=== PATIENT | female | born 1955 | race Caucasian/White ===

== ENCOUNTER 2023-11-17 19:17 | Inpatient (IN) | payer MEDICARE, OTHER, SELFPAY ==
[2023-11-17] VITALS (15 sets, daily range): BP systolic 124–162; BP diastolic 35–63
--- NOTE | 2023-11-17 12:21 | ED.GENMED ---
History of Present Illness
<López Pfeiffer DO - Last Filed: 11/17/23 15:15>
General
Chief Complaint: Gynecological Problem
Source: patient, records (Have been requested) and family
Exam Limitations: none
Time Seen by Provider: 11/17/23 12:07
Nursing documentation reviewed up to this point in time: agreed with
Travel History
Have you had any contact with someone who has COVID-19?: No
Do you have any symptoms of coronavirus? Fever > 100 degrees, chills, cough, shortness of breath, sore throat, loss of taste or smell, muscle aches, or headache?: No
History of Present Illness
History of Present Illness:
Patient is a very pleasant 68-year-old female accompanied by her family members she has had chronic back pain for about 5 years numerous physician visits no definitive diagnosis developed pelvic pain right greater than left for 5 days ago seen at a
hospital in [place] ultimately transferred to [facility] for urgent surgery apparently had a 9 cm mass with torsion of her right ovary
While awaiting surgery her blood pressure was elevated and surgery was apparently put on hold, last evening she was told she does not need surgery and she was discharged home to follow-up
Patient and family are frustrated by this and have come to [facility] expecting answers to her pelvic pain/mass issues
Has had subacute weight loss, she has had a partial hysterectomy 1998 for heavy bleeding does not know which surgeon performed that procedure
No records have accompanied the patient
Past History
<López Pfeiffer DO - Last Filed: 11/17/23 15:15>
Past History
ED Past Medical History: COPD and HTN
ED Past Surgical History: Gynecological (Hysterectomy) and Orthopedic
Social History
Tobacco: Former smoker
Alcohol: None
Drug: None
Living: with family
Employment: Retired
Review of Systems
<López Pfeiffer DO - Last Filed: 11/17/23 15:15>
Review of Systems
All Other Systems: Not applicable
Constitutional: Denies fever, fatigue or chills
EENT: Reports no symptoms
Respiratory: Reports no symptoms
Cardiac: Reports no symptoms
ABD/GI: Reports abdominal pain; Denies nausea or constipated
Musculoskeletal: Reports back pain
Skin: Reports no symptoms
Phy Exam
<López Pfeiffer DO - Last Filed: 11/17/23 15:15>
Physical Exam
Physical Exam:
Physical Exam
General: 68 female looks uncomfortable
Neck: No jaw
Heart: s1/s2 regular rate and rhythm, no murmur. equal radial pulses.
Lungs: no acute respiratory distress
Abdomen: Tender in the right greater than left lower
Neuro: alert and oriented. no focal neurological deficits
Skin: no rash
Psychiatric: well kept. interactive and cooperative
Extremities: no edema.
Course
<López Pfeiffer DO - Last Filed: 11/17/23 15:15>
Orders/Labs/Results
Orders:
Orders
11/17/23 12:20
0.9% Sodium Chloride 1000 ml [Nss] 1,000 ml IV BOLUS
HYDROmorphone [Dilaudid] 0.5 mg IV NOW STA
US Pelvis Transvaginal Only Urgent
Reason For Exam: mass tornsion tv only
11/17/23 12:23
CT Abd/Pel (IV only)-DH only Urgent
Comment:
Reason For Exam: right pelivc pain/mass
11/17/23 12:36
Complete Blood Count/With Diff Urgent
Comprehensive Metabolic Panel Urgent
11/17/23 12:53
HYDROmorphone [Dilaudid] 1 mg IV NOW STA
Ketorolac [Toradol] 30 mg IV NOW STA
11/17/23 14:56
0.9% Sodium Chloride 1000 ml [Nss] 1,000 ml IV BOLUS
11/17/23 15:09
CARBON SETTER CONSULT Urgent
Consulting Provider: Bronwyn Faust
Was physician already notified: Yes
11/17/23 16:29
* Blood Bank Products Urgent
Blood Bank Products: *Packed RBC Leuko(PRBC's)
Quantity: 2 u
Transfuse Today: Yes
Reason: Anemia
11/17/23 16:37
Dexamethasone Sod Phosphate [Decadron] 20 mg .ROUTE .STK-MED ONE
Fentanyl Citrate/Pf [Sublimaze] 100 mcg .ROUTE .STK-MED ONE
Lidocaine HCl/Pf [Xylocaine-Mpf 1% Vial] 50 mg .ROUTE .STK-MED ONE
Midazolam HCl [Versed] 2 mg .ROUTE .STK-MED ONE
Ondansetron Injectable [Zofran] 4 mg .ROUTE .STK-MED ONE
Propofol [Diprivan] 20 ml .ROUTE .STK-MED
Rocuronium Marianna [Rocuronium] 50 mg .ROUTE .STK-MED ONE
11/17/23 16:41
Lidocaine HCl/Pf [Xylocaine-Mpf 1% Vial] 50 mg .ROUTE .STK-MED ONE
11/17/23 16:46
Type And Crossmatch Urgent
CA 125 Urgent
CEA Urgent
Ferritin Urgent
Folate Urgent
Iron Urgent
PT/INR [Prothrombin Time] Urgent
PTT Urgent
TIBC [Total Iron Binding] Urgent
Vitamin B12 Urgent
Abnormal Lab Results
11/17/23
12:36
WBC 11.2 H 10^3/uL
(4.8-10.8)
RBC 2.43 L 10^6/uL
(4.20-5.40)
Hgb 8.3 L g/dL
(12.0-16.0)
Hct 24.3 L %
(37.0-47.0)
MCV 100.0 H fL
(81.0-99.0)
MCH 34.2 H pg
(27.0-31.0)
RDW 22.4 H %
(11.5-14.5)
Plt Count 484 H 10^3/uL
(130-400)
Abs Immat Gran (auto) 0.1 H 10^3/uL
(0-0.05)
Absolute Neuts (auto) 8.6 H 10^3/uL
(1.4-6.5)
Absolute Monos (auto) 1.2 H 10^3/uL
(0.1-0.6)
Neutrophils % 77.5 H %
(42.2-75.2)
Lymphocytes % 10.8 L %
(20.5-51.1)
Monocytes % 10.4 H %
(1.7-9.3)
Sodium 132 L mmol/L
(135-145)
Glucose 100 H mg/dl
(70-99)
Total Bilirubin 1.8 H mg/dl
(0.2-1.3)
11/17/23 12:36
11/17/23 12:36
Vital Signs
Initial and Last Documented VS:
Initial Vital Signs
Temp Pulse Resp BP Pulse Ox
98.2 F 96 18 140/60 98
11/17/23 11:53 11/17/23 11:53 11/17/23 11:53 11/17/23 11:53 11/17/23 11:53
Last Documented Vital Signs
Temp Pulse Resp BP Pulse Ox
98.2 F 96 18 160/63 95
11/17/23 11:53 11/17/23 11:53 11/17/23 11:53 11/17/23 16:48 11/17/23 16:48
<Carson Kirk MD - Last Filed: 11/17/23 16:53>
Orders/Labs/Results
Orders:
Orders
11/17/23 12:20
0.9% Sodium Chloride 1000 ml [Nss] 1,000 ml IV BOLUS
HYDROmorphone [Dilaudid] 0.5 mg IV NOW STA
US Pelvis Transvaginal Only Urgent
Reason For Exam: mass tornsion tv only
11/17/23 12:23
CT Abd/Pel (IV only)-DH only Urgent
Comment:
Reason For Exam: right pelivc pain/mass
11/17/23 12:36
Complete Blood Count/With Diff Urgent
Comprehensive Metabolic Panel Urgent
11/17/23 12:53
HYDROmorphone [Dilaudid] 1 mg IV NOW STA
Ketorolac [Toradol] 30 mg IV NOW STA
11/17/23 14:56
0.9% Sodium Chloride 1000 ml [Nss] 1,000 ml IV BOLUS
11/17/23 15:09
CARBON SETTER CONSULT Urgent
Consulting Provider: Bronwyn Faust
Was physician already notified: Yes
11/17/23 16:29
* Blood Bank Products Urgent
Blood Bank Products: *Packed RBC Leuko(PRBC's)
Quantity: 2 u
Transfuse Today: Yes
Reason: Anemia
11/17/23 16:37
Dexamethasone Sod Phosphate [Decadron] 20 mg .ROUTE .STK-MED ONE
Fentanyl Citrate/Pf [Sublimaze] 100 mcg .ROUTE .STK-MED ONE
Lidocaine HCl/Pf [Xylocaine-Mpf 1% Vial] 50 mg .ROUTE .STK-MED ONE
Midazolam HCl [Versed] 2 mg .ROUTE .STK-MED ONE
Ondansetron Injectable [Zofran] 4 mg .ROUTE .STK-MED ONE
Propofol [Diprivan] 20 ml .ROUTE .STK-MED
Rocuronium Marianna [Rocuronium] 50 mg .ROUTE .STK-MED ONE
11/17/23 16:41
Lidocaine HCl/Pf [Xylocaine-Mpf 1% Vial] 50 mg .ROUTE .STK-MED ONE
11/17/23 16:46
Type And Crossmatch Urgent
CA 125 Urgent
CEA Urgent
Ferritin Urgent
Folate Urgent
Iron Urgent
PT/INR [Prothrombin Time] Urgent
PTT Urgent
TIBC [Total Iron Binding] Urgent
Vitamin B12 Urgent
Abnormal Lab Results
11/17/23
12:36
WBC 11.2 H 10^3/uL
(4.8-10.8)
RBC 2.43 L 10^6/uL
(4.20-5.40)
Hgb 8.3 L g/dL
(12.0-16.0)
Hct 24.3 L %
(37.0-47.0)
MCV 100.0 H fL
(81.0-99.0)
MCH 34.2 H pg
(27.0-31.0)
RDW 22.4 H %
(11.5-14.5)
Plt Count 484 H 10^3/uL
(130-400)
Abs Immat Gran (auto) 0.1 H 10^3/uL
(0-0.05)
Absolute Neuts (auto) 8.6 H 10^3/uL
(1.4-6.5)
Absolute Monos (auto) 1.2 H 10^3/uL
(0.1-0.6)
Neutrophils % 77.5 H %
(42.2-75.2)
Lymphocytes % 10.8 L %
(20.5-51.1)
Monocytes % 10.4 H %
(1.7-9.3)
Sodium 132 L mmol/L
(135-145)
Glucose 100 H mg/dl
(70-99)
Total Bilirubin 1.8 H mg/dl
(0.2-1.3)
11/17/23 12:36
11/17/23 12:36
Vital Signs
Initial and Last Documented VS:
Initial Vital Signs
Temp Pulse Resp BP Pulse Ox
98.2 F 96 18 140/60 98
11/17/23 11:53 11/17/23 11:53 11/17/23 11:53 11/17/23 11:53 11/17/23 11:53
Last Documented Vital Signs
Temp Pulse Resp BP Pulse Ox
98.2 F 96 18 160/63 95
11/17/23 11:53 11/17/23 11:53 11/17/23 11:53 11/17/23 16:48 11/17/23 16:48
<López Pfefifer DO - Last Filed: 11/17/23 15:15>
MDM/Problems Addressed
Differential Diagnosis Includes:
Ovarian mass torsion stone other
MDM/Problems Addressed:
Pelvic pain abdominal pain
Chronic conditions affecting care:
Back pain
Chronic conditions affecting care: Previous abdomnial surgery
Acute Exacerbation and/or Progression of Chronic Illness: Previous abdomnial surgery
<López Pfeiffer DO - Last Filed: 11/17/23 15:15>
*Radiology
Radiology exam reviewed: other
*Pulse Oximetry
Patient hypoxic: no
*Critical Care Note
Total Time (30-74mins, 75-104mins- exclusive of procedures): Not Applicable
Data Reviewed
Review of Other/Old Records Reveals: Other (Labs records from [facility] have been requested)
Source: patient, records and family
<López Pfeiffer DO - Last Filed: 11/17/23 15:15>
Patient Management
Social determinants of health affecting care: Living situation
<López Pfeiffer DO - Last Filed: 11/17/23 15:15>
Update Note
Update Note:
Update records from [facility] have been ordered in the meantime we will repeat her ultrasound and her CAT scan here to try to define anatomy and what is going on try to get her comfortable keep her n.p.o.
3 PM patient appears more comfortable still with tenderness in the right lower abdomen pelvis, ultrasound reviewed with radiology here, CT is completed still awaiting records from [facility] patient and family updated, message sent to on-call
gynecology
<Carson Kirk MD - Last Filed: 11/17/23 16:53>
Update Note
Update Note:
Update records from [facility] have been ordered in the meantime we will repeat her ultrasound and her CAT scan here to try to define anatomy and what is going on try to get her comfortable keep her n.p.o.
3 PM patient appears more comfortable still with tenderness in the right lower abdomen pelvis, ultrasound reviewed with radiology here, CT is completed still awaiting records from [facility] patient and family updated, message sent to on-call
gynecology
Pt evaluated at bedside by (analytic programmer) who spoke with analytic programmer/oncology (). Will proceed to OR
ED Attending Note
<López Pfeiffer DO - Last Filed: 11/17/23 15:15>
-
Portions of this chart may have been created with voice recognition software.� Occasional wrong word or��sound alike� substitutions may have occurred due to the inherent limitations of voice recognition software.
Discharge Plan
Departure
Patient Disposition: OR
Date of Disposition: 11/17/23
Time of Disposition: 16:53
Presentation/result/management discussed w/ accepting MD/DO:
Condition: Fair
Discharge Problem:
Pelvic mass
Interventions
Interventions:
*Risk Screen - Suicide Last Done: 11/17/23 12:48
*General Assessment Last Done: 11/17/23 12:48
*Neglect/Abuse Screening Last Done: 11/17/23 12:48
*ED COVID-19 Vaccine History Last Done: 11/17/23 12:48
ED-Female Genitourinary Assessment Last Done: 11/17/23 12:48
[2023-11-17] MEDS: NSS 1000 IV ×2 (12:37→15:07)
[2023-11-17] MEDS: DILAUDID 0.5 MG IV (12:38)
[2023-11-17 12:52] LABS: % Basophils 0.4 % (0-2); % Eosinophils 0.4 % (0-6); % Immature Granulocytes 0.5 % (0-0.5); % Lymphocytes 10.8 % (20.5-51.1); % Monocytes 10.4 % (1.7-9.3); % Neutrophils 77.5 % (42.2-75.2); Absolute Basophils 0.1 10^3/uL (0-0.2); Absolute Immature Granulocytes 0.1 10^3/uL (0-0.05); Absolute Lymphocytes 1.2 10^3/uL (1.2-3.4); Absolute Monocytes 1.2 10^3/uL (0.1-0.6); Absolute Neutrophils 8.6 10^3/uL (1.4-6.5); Hematocrit 24.3 % (37.0-47.0); Hemoglobin 8.3 g/dL (12.0-16.0); Mean Corp Hgb Conc. 34.2 g/dL (33.0-37.0); Mean Corpuscular Hgb 34.2 pg (27.0-31.0); Mean Platelet Volume 9.6 fL (7.4-10.4); Nucleated Red Blood Cells % 0.2 %; Platelet Count 484 10^3/uL (130-400); Red Blood Cell Count 2.43 10^6/uL (4.20-5.40); Red Cell Dist. Width 22.4 % (11.5-14.5); White Blood Cell Count 11.2 10^3/uL (4.8-10.8)
[2023-11-17] MEDS: DILAUDID 1 MG IV (13:07)
[2023-11-17] MEDS: TORADOL 30 MG IV (13:08)
[2023-11-17 13:14] LABS: ALT (SGPT) 20 U/L (0-35); AST (SGOT) 18 U/L (14-36); Albumin 3.9 g/dl (3.5-5.0); Alkaline Phosphatase 95 U/L (38-126); Blood Urea Nitrogen 15 mg/dl (7-17); Calcium 9.1 mg/dl (8.4-10.2); Carbon Dioxide 25 mmol/L (22-30); Chloride 101 mmol/L (98-107); Glucose 100 mg/dl (70-99); Sodium 132 mmol/L (135-145); Total Bilirubin 1.8 mg/dl (0.2-1.3); Total Protein 6.5 g/dl (6.3-8.2); eGFR > 60.00
[2023-11-17 13:35] LABS: Anisocytosis 1+; Hypochromasia 1+; Normal RBC Morphology No
[2023-11-17 13:36] LABS: Ovalocytes Slight
--- NOTE | 2023-11-17 14:28 | EDRN ---
Have received NO paperwork from the other HC facility. Legal Officer CAlling again
[2023-11-17 17:05] LABS: INR 1.42; PT 17.1 Sec (11.4-14.6)
[2023-11-17 17:14] LABS: Iron 51 ug/dl (37-170)
[2023-11-17 17:24] LABS: Percent Saturation 22 % (20-50); Total Iron Binding Capacity 229 ug/dl (265-497)
[2023-11-17 17:42] LABS: CEA 1.99 ng/ml
[2023-11-17 17:46] LABS: CA 125 16.7 U/mL (0-35)
[2023-11-17 18:15] LABS: Folate 10.9 ng/ml (2.76-20); Vitamin B12 425 pg/ml (239-931)
[2023-11-17 18:30] LABS: Urine Albumin Trace (Neg - Trace); Urine Bilirubin Negative (Negative); Urine Character Clear (Clear); Urine Color Yellow; Urine Glucose Negative (Negative); Urine Ketone Negative (Negative); Urine Leukocyte Trace (Negative); Urine Nitrite Positive (Negative); Urine Occult Blood Negative (Negative); Urine Urobilinogen Negative (Neg - 1+)
[2023-11-17 18:41] LABS: Urine Bacteria Many (Negative); Urine Red Blood Cell 0-2 /HPF (0-2)
[2023-11-17] MEDS: HEPARIN 5000 UNITS SC (18:42)
--- NOTE | 2023-11-17 19:01 | OR.RPT ---
Operative Report
Operative Report
Preoperative diagnosis: Pelvic mass, lower abdominal pain
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
Surgeon: Ernesto Alfaro
Co-surgeon: Liberty Faust
Operative procedure: Exploratory laparotomy, bilateral salpingo-oophorectomy, omentectomy, pelvic washings, excision of Meckel's diverticulum, appendectomy
Complication: none
Estimated blood loss: 100 cc
Anesthesia: General endotracheal intubation
Procedure in detail: Patient was taken to the operating room after arrival and evaluation in the emergency room. She was placed in supine position, general anesthesia was administered, she was intubated without any difficulty appropriate IV lines
were placed. She was placed in lithotomy position using yellowfin stirrups. She was prepped on the abdomen perineum and vagina Lima catheter was inserted under sterile conditions. She was prepped and draped. Timeout procedure was completed, she
received 2 g of Ancef as well as 5000 units of heparin subcutaneously. Midline vertical skin incision was made between umbilicus and symphysis pubis, there was small amount of bloody fluid in the abdomen, washings was obtained and submitted for
cytology. Exploration of the abdomen was performed and bowel was packed away in the upper abdomen. Bookwalter retractor was placed and the pelvis was exposed. There was a 8 cm mass arising from the right ovary and the infundibulopelvic ligament
was twisted to full times. There was Meckel's diverticulum adherent to the mass. This was from the mass. Right round ligament was sealed and divided retroperitoneum was opened, the course of the ureter was identified. The IP ligament
was sealed 3 times after isolation and then clamped and tied off with 0 Vicryl suture. A portion of the right pelvic peritoneum was removed and submitted for pathology. Next this was sent for frozen section which eventually returned back with a
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 There was definite evidence of hemorrhage with blood clots around it. There was no obvious evidence of malignancy. But there was also some degree of hemorrhage and necrosis and malignancy could not
be 100% ruled out. We turned our attention to the left side of the pelvis. The round ligament was sealed and divided anterior and posterior leaves of the broad ligament were dissected open. Course of the ureter was identified. Infundibulopelvic
ligament was isolated, there were attachments of the sigmoid colon to the left pelvis which was taken down until the entire tube and ovary could be visualized IP ligament was sealed 3 times, clamped and suture-ligated. We then dissected the tube
and ovary off the left pelvic peritoneum in the process the remnant of right uterine artery was encountered and it was sealed and divided, remainder of the attachment of the tube and ovary to the pelvic peritoneum was taken down and the left tube
and ovary was submitted to pathology. Next we turned our attention to the bowel and proceeded to use CHANTAL 55 stapler across the base of the Meckel's diverticulum this was successfully removed and submitted to pathology. I also examined the
appendix. The appendix appeared to also have been involved with the inflamed right adnexal mass. Mesoappendix was sealed and divided with LigaSure device, the base of the appendix was stapled across using CHANTAL 55 stapler and the appendix was
removed and submitted to pathology. I examined the bowel from ligament of Treitz down to the ileocecal valve and there was no evidence of abnormalities otherwise noted. Ascending transverse and descending colon was normal the sigmoid colon was
unremarkable. The omentum was exteriorized, the tissue was limited in nature as the patient is thin and cachectic. Multiple omental vessels were isolated each of these were sealed and divided the infracolic omentum was removed and submitted to
pathology. I examined the upper abdomen and note that there is no evidence of abnormalities involving right and left diaphragm, the liver capsule splenic capsule palpate normally. Stomach is unremarkable, right and left paracolic gutters are
normal. I did not perform retroperitoneal lymph nodes dissection because there was no obvious evidence of malignancy and the patient has anemia likely secondary to hemorrhage into the right ovarian mass and I did not feel that it was safe to do so.
All labs and instruments were removed and we proceeded to start closure of the abdomen. The laps and instruments were removed and counts were correct x 2. The fascia was closed with 0 looped PDS starting from both ends and they were started in a
mass closure fashion and brought to the center and they were tied to each other. 2-0 Monocryl suture was used to reapproximate the subcutaneous tissue. Rand were used on the skin to reapproximate the skin.
Patient was awakened extubated and returned back to recovery room stable awake and extubated condition. Counts of laps instruments and needle was correct x 2. I was present and scrubbed for entire procedure as dictated above
Ernesto Alfaro MD
--- NOTE | 2023-11-17 19:12 | CON.ONC ---
Impression
Impression
This patient appears to have an 8 cm pelvic mass, she is in significant pain. I recommended surgery for definitive management
Patient has also anemia which is unusual and uncertain in nature. Additional labs including CA125, CEA was obtained, type and screen and type and cross was performed, anemia labs including ferritin vitamin B12 iron stores as well as folic acid was
ordered
Plan
Plan
Patient is agreeable to proceed with surgery, she understands that surgery would entail probably exploratory laparotomy with plan with bilateral salpingo-oophorectomy. I will obtain frozen section. I discussed the case in advance with pathology
physicians who will be available to perform frozen section. If malignancy is identified staging procedures to include but not limited to pelvic and aortic lymph node dissection omentectomy possible bowel resection and peritoneal biopsies will be
performed. Risks benefits alternatives were discussed, the patient understand there is risk of bleeding injury to adjacent organs DVT pulmonary embolism and cardiovascular complications and possible need for return back to the operating room as
well as additional adjuvant treatments. Patient is agreeable. They informed consent was signed between the patient and Dr. Faust
Patient History
History of Present Illness
This is a 68-year-old woman who presented to the ER accompanied by family members for back pain, lower abdominal pain. She had been recently admitted to [facility], observed and discharged with plan for follow-up as an outpatient. The
patient had severe pain and returned back to this hospital because she had family members were well taking care of here. After she was evaluated I received a phone call from Dr. Bronwyn Faust who had initially evaluated the patient in the
emergency room. The patient had a ultrasound of the pelvis which revealed a solid mass involving likely right ovary. CT scan of abdomen and pelvis was performed. This study showed an 8 cm pelvic mass. There was no evidence of ascites, there was
no retroperitoneal lymphadenopathy and there was no evidence of any peritoneal carcinomatosis. We did not have access to any of the outside records.
Past-Medical/Surgical History
COPD, hypertension
Surgical history significant for total abdominal hysterectomy for abnormal uterine bleeding, as well as orthopedic surgery
Patient Medication
Active Medications
Generic Name Dose Route Start Last Admin
Trade Name Freq PRN Reason Stop Dose Admin
Heparin Sodium 5,000 units 11/17/23 20:00
Heparin 5,000 Units/Ml 1 Ml Vial SC 12/15/23 19:59
Q12 ARIEL
Hydromorphone HCl 0.5 mg 11/17/23 17:04
Hydromorphone 0.5 Mg/0.5 Ml Syringe IV 11/18/23 17:04
PACU-Q5MPRN PRN
severe pain
Hydromorphone HCl 0.25 mg 11/17/23 17:04
Hydromorphone 0.25 Mg/0.5 Ml Syringe IV 11/18/23 17:04
PACU-Q5MPRN PRN
moderate pain
Parenteral Electrolytes 1,000 mls @ 100 mls/hr 11/17/23 17:15
Normosol-R IV 11/18/23 17:04
PER PROTOCOL ARIEL
Parenteral Electrolytes 1,000 mls @ 125 mls/hr 11/17/23 19:00
Normosol-R IV
.Q8H ARIEL
Ketorolac Tromethamine 15 mg 11/17/23 20:00
Ketorolac 15 Mg/Ml Injection IV 11/18/23 14:01
Q6H ARIEL
Meperidine HCl 12.5 mg 11/17/23 17:04
Meperidine 25 Mg/Ml Injection IV 11/18/23 17:04
PACU-Q5MPRN PRN
shivers
Ondansetron HCl 4 mg 11/17/23 17:04
Ondansetron 4 Mg/2 Ml Vial IV 11/18/23 17:04
PACU-ONCEPRN PRN
nausea/vomiting
Ondansetron HCl 4 mg 11/17/23 19:06
Ondansetron 4 Mg/2 Ml Vial IV 12/15/23 19:05
Q6HPRN PRN
nausea and vomiting
Oxycodone HCl 2.5 mg 11/17/23 19:06
Oxycodone 5 Mg Regular Release Tablet PO 12/01/23 19:05
Q4HPRN PRN
moderate pain
Oxycodone HCl 5 mg 11/17/23 19:06
Oxycodone 5 Mg Regular Release Tablet PO 12/01/23 19:05
Q4HPRN PRN
severe pain when tolerating PO
Prochlorperazine Edisylate 5 mg 11/17/23 17:04
Prochlorperazine 10 Mg/2 Ml Vial IV 11/18/23 17:04
PACU-ONCEPRN PRN
nausea/vomiting
Simethicone 80 mg 11/17/23 19:06
Simethicone 80 Mg Chewable Tablet PO 12/15/23 19:05
Q6HPRN PRN
gas distention
Review of Systems
-
History Source: Patient
Constitutional: Reports Weight Loss
EENT: Reports No Symptoms
Respiratory: Reports No Symptoms
Cardiac: Reports No Symptoms
GI: Reports Abdominal Pain
Breast: Reports No Symptoms
: Reports No Symptoms
Musculoskeletal: Reports No Symptoms
Skin: Reports No Symptoms
Neuro: Reports No Symptoms
Endocrine: Reports No Symptoms
Hematologic/Lymphatic: Reports No Symptoms
Allergy / Immunology: Reports No Symptoms
Psych: Reports No Symptoms
Physical Exam
-
General: Appears in Distress and Pain
HEENT: Moist Mucous Membranes
Cardiology: Normal Sinus Rhythm
Pulmonary: Clear and No Decreased Tactile Fremitus
GI: Soft and Other (Patient has tenderness in the lower abdomen)
Genito-Urinary: No Costovertebral Tenderness and Other (Bimanual examination and rectovaginal exam was performed after the patient was placed under general anesthesia, there is a solid mass in the pelvis which can be pushed out of the pelvis. There
does not appear to be any pelvic sidewall nodularity or fixation.)
Extremities: No C/C/E
Neurology: Non Focal
Skin: Warm
Labs
Lab Results
WBC 11.2 10^3/uL (4.8-10.8) H 11/17/23 12:36
RBC 2.43 10^6/uL (4.20-5.40) L 11/17/23 12:36
Hgb 8.3 g/dL (12.0-16.0) L 11/17/23 12:36
Hct 24.3 % (37.0-47.0) L 11/17/23 12:36
MCV 100.0 fL (81.0-99.0) H 11/17/23 12:36
MCH 34.2 pg (27.0-31.0) H 11/17/23 12:36
MCHC 34.2 g/dL (33.0-37.0) 11/17/23 12:36
RDW 22.4 % (11.5-14.5) H 11/17/23 12:36
Plt Count 484 10^3/uL (130-400) H 11/17/23 12:36
MPV 9.6 fL (7.4-10.4) 11/17/23 12:36
Abs Immat Gran (auto) 0.1 10^3/uL (0-0.05) H 11/17/23 12:36
Absolute Neuts (auto) 8.6 10^3/uL (1.4-6.5) H 11/17/23 12:36
Absolute Lymphs (auto) 1.2 10^3/uL (1.2-3.4) 11/17/23 12:36
Absolute Monos (auto) 1.2 10^3/uL (0.1-0.6) H 11/17/23 12:36
Absolute Eos (auto) 0.0 10^3/uL (0-0.7) 11/17/23 12:36
Absolute Basos (auto) 0.1 10^3/uL (0-0.2) 11/17/23 12:36
Immature Gran % 0.5 % (0-0.5) 11/17/23 12:36
Neutrophils % 77.5 % (42.2-75.2) H 11/17/23 12:36
Lymphocytes % 10.8 % (20.5-51.1) L 11/17/23 12:36
Monocytes % 10.4 % (1.7-9.3) H 11/17/23 12:36
Eosinophils % 0.4 % (0-6) 11/17/23 12:36
Basophils % 0.4 % (0-2) 11/17/23 12:36
Creatinine 0.6 mg/dL (0.6-1.0) 11/17/23 12:36
Vital Signs
Vital Signs
Temp Pulse Resp BP Pulse Ox
98.2 F 96 18 160/63 95
11/17/23 11:53 11/17/23 11:53 11/17/23 11:53 11/17/23 16:48 11/17/23 16:48
--- NOTE | 2023-11-17 19:47 | CON.HOSP ---
Family Physician
-
Family Physician: Elisa Winkler
Chief Complaint
-
abdominal pain
History of Present Illness
68-year-old female past medical history of fibroids, heavy menstrual bleeding status post partial hysterectomy in 1998, chronic back pain, hypertension, suspected COPD, anxiety/depression, presenting with severe abdominal pain over the past 2 days
with nausea. She has been having ongoing weight loss. Patient did not have any blood in the stool or black stool or change in bowel habits.
Medical History
Past Medical History
Past Medical History: Reports Other ( fibroids, heavy menstrual bleeding status post partial hysterectomy in 1998, chronic back pain, hypertension, suspected COPD, anxiety/depression)
Past Surgical History: Reports Other (back surgery )
Social History
Tobacco: Smoker
Alcohol: None
Drug: None
Allergies / Home Medications
Allergies reflects when Allergies were last updated in [employer].
Home Medications with original date entered in [employer]
Allergy/Medication List:
Allergies
Allergy/AdvReac Type Severity Reaction Status Date / Time
No Known Allergies Allergy Verified 11/17/23 16:42
Review of Systems
-
Unable to obtain full review of systems at this time due to: Patient Non-verbal
History Source: Patient
A 12 point Review of Systems was completed except as noted: No
Physical Exam
Vital Signs
Vital Signs
Temp Pulse Resp BP Pulse Ox
99.1 F 74 14 157/51 97
11/17/23 19:27 11/17/23 19:30 11/17/23 19:30 11/17/23 19:30 11/17/23 19:30
Physical Exam
General: Well Developed, Well Nourished and No Apparent Distress
HEENT: Normocephalic, Moist Mucous Membranes and Atraumatic
Respiratory: Clear
Cardiac: S1/S2 and Regular Rhythm; Negative Murmur or Rub
GI: Soft, Non Tender, Non Distended and Normal Bowel Sounds
Rectal: Deferred by Provider
Musculoskeletal: No Clubbing, No Cyanosis and No Edema
Skin: Negative Rash
Neuro: Nonfocal/Grossly Intact
Laboratory Results
-
Laboratory Results
11/17/23 12:36
PT 17.1 Sec (11.4-14.6) H 11/17/23 16:46
INR 1.42 11/17/23 16:46
APTT 43.0 Sec (23.4-35.0) H 11/17/23 16:46
Total Bilirubin 1.8 mg/dl (0.2-1.3) H 11/17/23 12:36
AST 18 U/L (14-36) 11/17/23 12:36
ALT 20 U/L (0-35) 11/17/23 12:36
Alkaline Phosphatase 95 U/L (38-126) 11/17/23 12:36
Data Reviewed
-
Lab Data: Labs Reviewed
Old Records: Reviewed
Impression / Plan
-
IMPRESSION:
PLAN:
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
- status post exploratory laparotomy, bilateral salpingo-oophorectomy, omentectomy, pelvic washings, excision of Meckel's diverticulum, appendectomy
-Managed per REGIONAL CLINICAL DIRECTOR
# Macrocytic anemia, likely chronic component
-Likely some degree of blood loss from ovarian torsion
-Check iron studies, B12, folate
-Check CBC in the morning
# Coagulopathy likely related to surgery
Active smoker
-Smokes half pack of cigarettes per day
-Nicotine patch
History of uterine fibroids with heavy menstrual bleeding status post partial hysterectomy 1998
Chronic back pain with sciatica status post back surgery
Essential hypertension
-Continue amlodipine, dose unclear so continue 5 mg
-Continue Coreg 12.5 BID
Suspected COPD
Anxiety/depression
-Continue Zoloft 200 daily
Full code
DVT prophylaxis�SCDs
Regular diet
[2023-11-17] MEDS: DILAUDID 0.25 MG IV (20:12)
[2023-11-17] MEDS: NORMOSOL-R 1000 IV (20:25)
--- NOTE | 2023-11-17 20:52 | PTCARENOTE ---
Patient arrived from PACU @20:52 with IVF infusing, andrews cathether in place (clear yellow urine), O2 2L, VSS; History obtained from patient.
[2023-11-17] MEDS: TORADOL 15 MG IV (21:09)
[2023-11-17] MEDS: COREG 12.5 MG PO (21:09)
[2023-11-17 22:18] LABS: Hematocrit 23.2 % (37.0-47.0); Hemoglobin 7.8 g/dL (12.0-16.0)
--- NOTE | 2023-11-17 22:25 | PTCARENOTE ---
H&H ordered by Dr. Faust obtained and resulted, notified Dr. Faust of result Hgb 7.8 (pre-op 8.3), Hct 23.2 (pre-op 24.3); no new order at this time as Dr. Faust stated stable and will wait for CBC in a.m.; Informed Dr. Joseph that confirmed that 2
units of PRBC were ordered in ED, blood bank stated units were not requested by ED as patient went to OR, OR notified ready in case needed, units remain in blood bank and ready if needed in a.m.
[2023-11-18] MEDS: TORADOL 15 MG IV ×2 (02:08→08:05)
[2023-11-18] MEDS: NORMOSOL-R 1000 IV (02:11)
[2023-11-18 03:00] VITALS: BP 158/55
[2023-11-18 03:27] VITALS: BP 143/49
--- NOTE | 2023-11-18 06:00 | PTCARENOTE ---
Andrews removed @0600 per MD order without incident; patient placed on time and amount; MD order to have patient oob for 30 minutes this nightshift, asked patient 4x throughout shift but refused, agreed after andrews catheter removal she would sit in
recliner at bedside, assisted oob with assistance x2 first time post op, patient resting comfortably in recliner, patient aware to ring call haynes for assistance, will continue to monitor and give detailed report to dayshift RN.
[2023-11-18 06:11] VITALS: BMI 20.8
[2023-11-18 06:25] LABS: % Basophils 0.2 % (0-2); % Immature Granulocytes 0.5 % (0-0.5); % Lymphocytes 6.5 % (20.5-51.1); % Neutrophils 85.8 % (42.2-75.2); Absolute Immature Granulocytes 0.1 10^3/uL (0-0.05); Absolute Lymphocytes 0.9 10^3/uL (1.2-3.4); Absolute Neutrophils 12.5 10^3/uL (1.4-6.5); Hematocrit 23.1 % (37.0-47.0); Hemoglobin 7.6 g/dL (12.0-16.0); Mean Corp Hgb Conc. 32.9 g/dL (33.0-37.0); Mean Corpuscular Hgb 34.2 pg (27.0-31.0); Mean Corpuscular Volume 104.1 fL (81.0-99.0); Mean Platelet Volume 9.4 fL (7.4-10.4); Nucleated Red Blood Cells % 0.1 %; Platelet Count 479 10^3/uL (130-400); Red Blood Cell Count 2.22 10^6/uL (4.20-5.40); Red Cell Dist. Width 22.5 % (11.5-14.5); White Blood Cell Count 14.5 10^3/uL (4.8-10.8)
[2023-11-18 06:46] LABS: Blood Urea Nitrogen 17 mg/dl (7-17); Carbon Dioxide 21 mmol/L (22-30); Chloride 106 mmol/L (98-107); Estimated Creatinine Clearance 74 ml/min; Potassium 4.4 mmol/L (3.5-5.1); Sodium 134 mmol/L (135-145)
--- NOTE | 2023-11-18 06:53 | W.PN.ONC2 ---
Today's Communication / Plan
-
Routine post op care (per SCHOOL OFFICE ASSISTANT)
Await pathology.
Regarding anemia, check retic count. Pattern seems to suggest chronic disease pattern (elevated ferritin, to Fe & TIBC). Check retic count and monitor.
Regarding coag recheck in AM
Impression
Impression
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
- status post exploratory laparotomy, bilateral salpingo-oophorectomy, omentectomy, pelvic washings, excision of Meckel's diverticulum, appendectomy 11/16
Macrocytic anemia
Elevated coag studies (mild)
Plan
Plan
Routine post op care (per SCHOOL OFFICE ASSISTANT)
Await pathology.
Regarding anemia, check retic count. Pattern seems to suggest chronic disease pattern (elevated ferritin, to Fe & TIBC). Check retic count and monitor.
Regarding coag recheck in AM
Subjective/Objective
Chief Complaint
ACS Heme Onc F/U
Subjective
Patient seen POD # 1 with expected incisional pain. No flatus. No other c/o
Vital Signs:
Vital Signs
Temp Pulse Resp BP Pulse Ox
97.5 F 78 16 158/55 93
11/18/23 03:00 11/18/23 03:00 11/18/23 03:00 11/18/23 03:00 11/18/23 03:00
Lab Results:
Laboratory Data
WBC 14.5 10^3/uL (4.8-10.8) H 11/18/23 06:11
Hgb 7.6 g/dL (12.0-16.0) L 11/18/23 06:11
Plt Count 479 10^3/uL (130-400) H 11/18/23 06:11
PT 17.1 Sec (11.4-14.6) H 11/17/23 16:46
INR 1.42 11/17/23 16:46
APTT 43.0 Sec (23.4-35.0) H 11/17/23 16:46
eGFR > 60.00 11/17/23 12:36
Laboratory Tests
11/17/23
16:46
TIBC 229 L
% Saturation 22
Ferritin 460.0 H
Carcinoembryonic Ag 1.99
CA 125 Antigen 16.7
Vitamin B12 425
Folate 10.9
Physical Exam
HEENT: No Jaundice
Cardiology: Normal Sinus Rhythm, S1 and S2
Pulmonary: Clear
GI: Soft; No Normal Bowel Sounds (still absent)
Extremities: No C/C/E
Neuro: Non Focal
[2023-11-18 07:00] VITALS: BP 148/57
--- NOTE | 2023-11-18 07:00 | PTCARENOTE ---
Received telephone call from patient's [id number] Lexie (listed as second contact), update provided.
[2023-11-18] MEDS: ROXICODONE 5 MG PO (07:33)
[2023-11-18 07:39] LABS: Reticulocyte Count 2.1 % (0.4-2.8)
--- NOTE | 2023-11-18 07:51 | W.PN.HOSP.TC ---
Today's Communication/Plan
-
Obtain records from [facility]
Trend CBC
Assessment / Plan
Assessment / Plan
HPI: 68-year-old female past medical history of fibroids, heavy menstrual bleeding status post partial hysterectomy in 1998, chronic back pain, hypertension, suspected COPD, anxiety/depression, presenting with severe abdominal pain over the past 2
days with nausea. She has been having ongoing weight loss. Patient did not have any blood in the stool or black stool or change in bowel habits.
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
-Status post exploratory laparotomy, bilateral salpingo-oophorectomy, omentectomy, pelvic washings, excision of Meckel's diverticulum, appendectomy
-Managed per [employer] SALES REPRESENTATIVES
# Macrocytic anemia, likely chronic component
Likely some degree of blood loss from ovarian torsion in conjunction with possible anemia of chronic disease
Initial hemoglobin 8.3, dropped to 7.6 after surgery. We do not have a baseline hemoglobin for her
B12/folic acid normal, iron 51, ferritin high at 460 secondary to surgery, TIBC low at 229, percent sat normal at 22
Check methylmalonic acid
Obtain records from [facility]
Trend CBC
# Coagulopathy likely related to surgery
#Hyponatremia
Mild, monitor
#Leukocytosis
Likely reactive, she is afebrile
Trend CBC
Active smoker
-Smokes half pack of cigarettes per day
-Nicotine patch
History of uterine fibroids with heavy menstrual bleeding status post partial hysterectomy 1998
Chronic back pain with sciatica status post back surgery
Essential hypertension
-Continue amlodipine, dose unclear so continue 5 mg
-Continue Coreg 12.5 BID
Suspected COPD
Anxiety/depression
-Continue Zoloft 200 daily
DVT prophylaxis�SCDs
Full code
Physical Exam
General: No acute distress
HEENT: Normocephalic, Atraumatic, EOMI, MMM
Respiratory: Clear to Auscultation bilaterally
Cardiac: Normal S1/S2, Regular Rate and Rhythm
GI: Soft, appropriately tender, incisions clean/dry/intact
Extremities: No Clubbing, Cyanosis, or Edema
Neuro: Nonfocal/Grossly Intact
Psych: Calm, Cooperative
Derm: No Visible lesions
Anticipated Discharge: Within 24 hours
Subjective/Interval History
-
Date of Service: November 18, 2023
Patient seen and examined. She denies black or bloody stools, vaginal bleeding, hematuria. No epistaxis. No fever, no vomiting. Last colonoscopy was when she was 50 years old, 18 years ago.
Objective Data
-
Labs:
Laboratory Results
11/17/23 11/18/23 11/18/23
22:12 06:11 06:57
WBC 14.5 H
Hgb 7.8 L 7.6 L
Hct 23.2 L 23.1 L
Plt Count 479 H
PT Cancelled
INR Cancelled
APTT Cancelled
Sodium 134 L
Potassium 4.4
Chloride 106
Carbon Dioxide 21 L
BUN 17
Creatinine 0.6
Vital Signs:
Vital Signs
Temp Pulse Resp BP Pulse Ox
97.6 F 82 16 148/57 95
11/18/23 07:00 11/18/23 07:00 11/18/23 07:00 11/18/23 07:00 11/18/23 07:00
I&O
11/17/23 11/18/23 11/19/23
06:59 06:59 06:59
Intake Total 1370 / 1370
Output Total 600 / 600
Balance 770 / 770
[2023-11-18 08:01] LABS: Folate 11.9 ng/ml (2.76-20); Vitamin B12 489 pg/ml (239-931)
[2023-11-18] MEDS: ZOLOFT 200 MG PO (08:03)
[2023-11-18] MEDS: COREG 12.5 MG PO ×2 (08:04→19:40)
[2023-11-18] MEDS: HEPARIN 5000 UNITS SC ×2 (08:05→19:41)
[2023-11-18] MEDS: NORVASC 5 MG PO (08:06)
[2023-11-18] MEDS: FLUSH (NSS) 2 FLUSH IV (08:10)
--- NOTE | 2023-11-18 08:20 | W.PN.GYN.DG ---
Today's Communication / Plan
-
Advance diet
Switch to all po pain meds
Stop IVF
Ambulate
Will need cont eval of anemia as out pt
Poss d/c to home tomorrow
F/u on urine cx
Assessment / Plan
-
Assessment:
POD #1 laparatomy iwth BSO - peritoneal bx and omentectomy with washings
Plan:
Advance diet
Switch to all po pain meds
Stop IVF
Ambulate
Will need cont eval of anemia as out pt
Poss d/c to home tomorrow
F/u on urine cx
Subjective / Objective Data
Subjective Data
PT feeling better - good pain control
Objective Data
Vital Signs
Temp Pulse Resp BP Pulse Ox
97.6 F 82 16 148/57 95
11/18/23 07:00 11/18/23 07:00 11/18/23 07:00 11/18/23 07:00 11/18/23 07:00
Intake & Output
11/17/23 11/18/23 11/19/23
06:59 06:59 06:59
Intake Total 1370 / 1370
Output Total 600 / 600
Balance 770 / 770
Intake:
Oral fluids 120 / 120
IV fluids (Total) 1250 / 1250
Output:
Urine, [place] 600 / 600
Physical Exam
-
Cardiac: Regular rate & rhythm
Lungs: Clear: Bilateral
Abdomen: Soft and Other (appropriately tender )
Bowel Sounds: Normal
Extremities: No Calf Tenderness, No Edema and Other (+ comp hose)
Incision: Clean, Dry and Other (Dressing clean)
Data Reviewed
-
Lab Data
11/18/23 06:11
11/18/23 06:11
Urine Color Yellow 11/17/23 18:06
Urine Clarity Clear (Clear) 11/17/23 18:06
Urine pH 5.0 (5.0-9.0) 11/17/23 18:06
Ur Specific [place] 1.010 (<1.030) 11/17/23 18:06
Urine Ketones Negative (Negative) 11/17/23 18:06
Urine Occult Blood Negative (Negative) 11/17/23 18:06
Urine Nitrite Positive (Negative) A 11/17/23 18:06
Urine Bilirubin Negative (Negative) 11/17/23 18:06
Urine Urobilinogen Negative (Neg - 1+) 11/17/23 18:06
Ur Leukocyte Esterase Trace (Negative) A 11/17/23 18:06
Urine Albumin Trace (Neg - Trace) 11/17/23 18:06
--- NOTE | 2023-11-18 10:21 | CM ---
met with patient at bedside.she lives with in house with 2 steps to enter.her bed and bath is on the first level,she ambulate I and is AI with her adl.her pcp is dr barbosa and she uses [facility] for her meds.patient has never had
a vn or been to ip rehab in past.patient is sp lap with BSO for right ovarian mass. she is on po pain meds,will ambulate and await urine cx results.patient has declined a visiting nurse.for possible dc tomorrow.or bx results pending.Plan home with
no needs.
[2023-11-18 11:00] VITALS: BP 153/47
[2023-11-18] MEDS: PERCOCET 5/325 1 TABLET PO ×2 (13:44→19:40)
[2023-11-18] MEDS: MOTRIN 800 MG PO (14:44)
[2023-11-18 19:16] VITALS: BP 143/47
--- NOTE | 2023-11-18 23:00 | PTCARENOTE ---
Bp- 119/33, HR- 68. Asymptomatic/ sleeping . Patient had Percocet/ Coreg 12.5 two hours prior. LEW Park made aware. No new orders at this time.
[2023-11-18 23:10] VITALS: BP 119/33
[2023-11-19] VITALS (11 sets, daily range): BP systolic 141–175; BP diastolic 40–61
[2023-11-19] MEDS: PERCOCET 5/325 1 TABLET PO (05:16)
[2023-11-19 07:16] LABS: APTT 42.6 Sec (23.4-35.0)
[2023-11-19] MEDS: COREG 12.5 MG PO ×2 (07:55→19:07)
[2023-11-19] MEDS: HEPARIN 5000 UNITS SC ×2 (07:56→19:08)
[2023-11-19] MEDS: NORVASC 5 MG PO (07:56)
--- NOTE | 2023-11-19 07:56 | W.PN.HOSP.TC ---
Today's Communication/Plan
-
see bold
Assessment / Plan
Assessment / Plan
HPI: 68-year-old female past medical history of fibroids, heavy menstrual bleeding status post partial hysterectomy in 1998, chronic back pain, hypertension, suspected COPD, anxiety/depression, presenting with severe abdominal pain over the past 2
days with nausea. She has been having ongoing weight loss. Patient did not have any blood in the stool or black stool or change in bowel habits.
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
-Status post exploratory laparotomy, bilateral salpingo-oophorectomy, omentectomy, pelvic washings, excision of Meckel's diverticulum, appendectomy
-Managed per ABSTRACTOR
-Added PT, laxatives 11/18
# Macrocytic anemia, likely chronic component
Likely some degree of blood loss from ovarian torsion in conjunction with possible anemia of chronic disease
Hemoglobin 6.4 today, was 7.6 after the surgery, was 8.3 prior to the surgery. We do not have a baseline hemoglobin for her
B12/folic acid normal, iron 51, ferritin high at 460 secondary to surgery, TIBC low at 229, percent sat normal at 22
Check methylmalonic acid - send out. Obtain records from [facility] in [place]
Transfuse 2 units of packed red blood cells, trend CBC
# Coagulopathy likely related to surgery
Hematology following
#Hyponatremia
Mild, monitor
#Leukocytosis
Likely reactive, she is afebrile
Trend CBC
Active smoker
-Smokes half pack of cigarettes per day
-Nicotine patch
History of uterine fibroids with heavy menstrual bleeding status post partial hysterectomy 1998
Chronic back pain with sciatica status post back surgery
Essential hypertension
-Continue amlodipine, dose unclear so continue 5 mg
-Continue Coreg 12.5 BID
Suspected COPD
Anxiety/depression
-Continue Zoloft 200 daily
DVT prophylaxis�SC heparin
Full code
Total time spent to see the patient on the floor, examine the patient, review data and lab results, discuss treatment plan with patient, nursing staff around 50 minutes.
Physical Exam
General: No acute distress
HEENT: Normocephalic, Atraumatic, EOMI, MMM
Respiratory: Clear to Auscultation bilaterally
Cardiac: Normal S1/S2, Regular Rate and Rhythm
GI: Soft, appropriately tender, distended, incisions clean/dry/intact
Extremities: No Clubbing, Cyanosis, or Edema
Neuro: Nonfocal/Grossly Intact
Anticipated Discharge: Within 24 hours
Subjective/Interval History
-
Date of Service: November 19, 2023
No gas, no bowel movement. Denies weakness, denies lightheadedness, denies weakness. No fever, no vomiting.
Objective Data
-
Labs:
Laboratory Results
11/19/23 11/19/23
05:54 07:50
WBC Pending
Hgb Pending
Hct Pending
Plt Count Pending
PT 16.0 H
INR 1.30
APTT 42.6 H
Sodium Pending
Potassium Pending
Chloride Pending
Carbon Dioxide Pending
BUN Pending
Creatinine Pending
Glucose Pending
Calcium Pending
Vital Signs:
Vital Signs
Temp Pulse Resp BP Pulse Ox
98.2 F 70 16 175/48 94
11/19/23 07:00 11/19/23 07:00 11/19/23 07:00 11/19/23 07:00 11/19/23 07:00
I&O
11/18/23 11/19/23 11/20/23
06:59 06:59 06:59
Intake Total 1370 / 1370 895 / 895
Output Total 600 / 600
Balance 770 / 770 895 / 895
[2023-11-19] MEDS: ZOLOFT 200 MG PO (07:57)
--- NOTE | 2023-11-19 08:18 | W.PN.GYN.DG ---
Today's Communication / Plan
-
Await morning BW
F/u on urine cx
Inc ambulation - await + flatus
Percocet sent to local pharmacy for post op pain #15 in case d/c to home this afternoon
IF d/c will need f/u with Dr Alfaro in 7-10 days for post op
Assessment / Plan
-
Assessment:
POD # 2 laparotomy with BSO
Plan:
Await morning BW
F/u on urine cx
Inc ambulation - await + flatus
Percocet sent to local pharmacy for post op pain #15 in case d/c to home this afternoon
IF d/c will need f/u with Dr Alfaro in 7-10 days for post op
Subjective / Objective Data
Subjective Data
Doing well - good pain control - no flatus yet - no n/v - morning BW pending
Objective Data
Vital Signs
Temp Pulse Resp BP Pulse Ox
98.2 F 70 16 175/48 94
11/19/23 07:00 11/19/23 07:56 11/19/23 07:00 11/19/23 07:56 11/19/23 08:00
Intake & Output
11/18/23 11/19/23 11/20/23
06:59 06:59 06:59
Intake Total 1370 / 1370 895 / 895
Output Total 600 / 600
Balance 770 / 770 895 / 895
Intake:
Oral fluids 120 / 120 520 / 520
IV fluids (Total) 1250 / 1250 375 / 375
Output:
Urine, [place] 600 / 600
Other:
Number of approximated MODERATE 1
amounts of urine
Number of approximated LARGE 1
amounts of urine
Physical Exam
-
Cardiac: Regular rate & rhythm
Lungs: Clear: Bilateral
Abdomen: Soft and Other (+ mild distended - + appropriaately tender )
Bowel Sounds: Normal
Extremities: No Calf Tenderness and No Edema
Incision: Clean and Dry (Dressing clean )
Data Reviewed
-
Urine Color Yellow 11/17/23 18:06
Urine Clarity Clear (Clear) 11/17/23 18:06
Urine pH 5.0 (5.0-9.0) 11/17/23 18:06
Ur Specific [place] 1.010 (<1.030) 11/17/23 18:06
Urine Ketones Negative (Negative) 11/17/23 18:06
Urine Occult Blood Negative (Negative) 11/17/23 18:06
Urine Nitrite Positive (Negative) A 11/17/23 18:06
Urine Bilirubin Negative (Negative) 11/17/23 18:06
Urine Urobilinogen Negative (Neg - 1+) 11/17/23 18:06
Ur Leukocyte Esterase Trace (Negative) A 11/17/23 18:06
Urine Albumin Trace (Neg - Trace) 11/17/23 18:06
[2023-11-19 08:35] LABS: Mean Corp Hgb Conc. 32.3 g/dL (33.0-37.0); Mean Corpuscular Volume 105.3 fL (81.0-99.0); Platelet Count 425 10^3/uL (130-400); Red Blood Cell Count 1.88 10^6/uL (4.20-5.40); Red Cell Dist. Width 23.3 % (11.5-14.5); White Blood Cell Count 7.7 10^3/uL (4.8-10.8)
[2023-11-19 08:49] LABS: Hemoglobin 6.4 g/dL (12.0-16.0)
[2023-11-19 08:50] LABS: Hematocrit 19.8 % (37.0-47.0)
[2023-11-19 09:13] LABS: Blood Urea Nitrogen 17 mg/dl (7-17); Calcium 8.3 mg/dl (8.4-10.2); Carbon Dioxide 25 mmol/L (22-30); Chloride 104 mmol/L (98-107); Estimated Creatinine Clearance 74 ml/min; Glucose 87 mg/dl (70-99); Sodium 133 mmol/L (135-145); eGFR > 60.00
--- NOTE | 2023-11-19 09:29 | W.PN.GYN ---
Today's Communication / Plan
-
transfuse blood
awaiting return of bowel function
Physician Note
-
Postop day 2 status post exploratory laparotomy, bilateral salpingo-oophorectomy, appendectomy with excision of Meckel's diverticulum
She is very thankful that we performed her surgery on Monday evening upon arrival to the emergency room,
Original pain has resolved and she has only soreness secondary to incision. She drank liquids yesterday and tolerated them well, she has not passed any flatus as of yet.
She has been up and ambulating to the bathroom within her room, but has not walked the hallway
On exam her vital signs are stable,
I note the following:
Car RRR
regular rate and rhythm,
Lungs are clear to auscultation
Abdomen is soft mildly distended, dressing was removed, incision is intact with bette present otherwise clean dry and intact
Lower extremities are without any calf pain or swelling
Assessment and Plan
Assessment and Plan
(1) Pelvic mass:
Status: Acute
Plan
Her hemoglobin has drifted down to 6.4, it is likely that her hemoglobin on arrival to the ER at 8 was likely hemoconcentrated
I do not see any tachycardia or hypotension and the patient is essentially asymptomatic
At a minimum 1 unit of blood should be transfused to keep the hemoglobin above 7.
I appreciate the input by hematology as well as hospitalist internal medicine. She has longstanding anemia likely due to chronic disease but it is unclear to me what the chronic diseases. I suspect she needs additional workup as an outpatient to
determine the exact nature. Ferritin was drawn prior to surgery and is not elevated as a reaction to the surgery.
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
I think the patient should probably stay for another 24 hours after blood transfusion to ensure stability of her blood counts prior to discharge home.
[2023-11-19] MEDS: SENOKOT-S 2 TABLET PO ×2 (09:36→19:08)
[2023-11-19] MEDS: MIRALAX 17 GRAMS PO (09:36)
[2023-11-19] MEDS: MOTRIN 800 MG PO ×3 (11:05→23:29)
--- NOTE | 2023-11-19 11:33 | PTCARENOTE ---
assumed care of pt from previous shift. assessment as documented. morning lab work reported to Hospitalist-Dr Andujar, Dr Faust and Dr Alfaro. HGB 6.4. order for 2 units PRBC's to be transfused today. pt c/o moderate abdominal discomfort and
medicated per SEP. monitoring continues.
--- NOTE | 2023-11-19 11:49 | PTCARENOTE ---
Left Wrist IV site leaking. blood transfusion moved to patent RAC INT.
--- NOTE | 2023-11-19 23:04 | PTCARENOTE ---
Patient's BP 162/57, HR- 62. Coreg 12.5 two hours prior. Patient is asymptomatic. LEW Park made aware. will continue to monitor as per advise
--- NOTE | 2023-11-20 05:51 | W.PN.HOSP.TC ---
Addendum entered and electronically signed by Valerie Patino MD 11/20/23 16:33:
Acute blood loss anemia with baseline chronic anemia
Original Note:
Today's Communication/Plan
-
discharge
Assessment / Plan
Assessment / Plan
HPI: 68-year-old female past medical history of fibroids, heavy menstrual bleeding status post partial hysterectomy in 1998, chronic back pain, hypertension, suspected COPD, anxiety/depression, presenting with severe abdominal pain over the past 2
days with nausea. She has been having ongoing weight loss. Patient did not have any blood in the stool or black stool or change in bowel habits.
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
-Status post exploratory laparotomy, bilateral salpingo-oophorectomy, omentectomy, pelvic washings, excision of Meckel's diverticulum, appendectomy
-Managed per [employer]
-cleared for discharge today as per OBGYN
-PT appreciated no needs
#UTI
managed as per [employer] M[employer] ceftriaxone once followed by Bactrim DS BID for 5 days
# Macrocytic anemia, likely chronic component
Likely some degree of blood loss from ovarian torsion in conjunction with Anemia of Chronic Disease
B12/folic acid normal, iron 51, ferritin high at 460 secondary to surgery, TIBC low at 229, percent sat normal at 22
Methylmalonic acid pending
records from [facility] appreciated
Responded appropriately to Transfusion 2 units of packed red blood cells Hgb increased from 6.4 to 9.2
Hematology Eval appreciated
# Coagulopathy likely related to surgery since resolved
#Mild Hyponatremia resolved
#Leukocytosis
Likely reactive, resolved
Active smoker
-Smokes half pack of cigarettes per day
-Nicotine patch
-smoking cessation strongly advised
History of uterine fibroids with heavy menstrual bleeding status post partial hysterectomy 1998
Chronic back pain with sciatica status post back surgery
Essential hypertension
-Home Amlodipine increased from 5 mg Daily to BID
-Continue Coreg 12.5 BID
Suspected COPD
Anxiety/depression
-Continue Zoloft 200 daily
DVT prophylaxis�SC heparin
Full code
Medically stable for discharge home with outpatient follow up recommendations.
Discussed with patient, Nurse, and Obgyn
Total Time Preparing Discharge ___50____ minutes including examination of the patient, summary of the hospital stay, instructions for continuing care to all relevant caregivers; and preparation of discharge records, prescriptions, and referral
forms if necessary.
Physical Exam
General: No acute distress
HEENT: Normocephalic, Atraumatic, EOMI, MMM
Respiratory: Clear to Auscultation bilaterally
Cardiac: Normal S1/S2, Regular Rate and Rhythm
GI: Soft, appropriately tender, distended, incisions clean/dry/intact
Extremities: No Clubbing, Cyanosis, or Edema
Neuro: Nonfocal/Grossly Intact
Anticipated Discharge: Today
Subjective/Interval History
-
Date of Service: November 20, 2023
Seen and examined at bedside in no acute distress, ambulating without issues. Reports pain well controlled with current pain regimen. Reports overall feeling well.
Objective Data
-
Labs:
Laboratory Results
11/20/23
05:43
WBC Pending
Hgb Pending
Hct Pending
Plt Count Pending
PT Pending
INR Pending
Sodium Pending
Potassium Pending
Chloride Pending
Carbon Dioxide Pending
BUN Pending
Creatinine Pending
Glucose Pending
Calcium Pending
Vital Signs:
Vital Signs
Temp Pulse Resp BP Pulse Ox
98.3 F 63 16 162/57 94
11/19/23 23:03 11/19/23 23:03 11/19/23 23:03 11/19/23 23:03 11/19/23 23:03
I&O
11/18/23 11/19/23 11/20/23
06:59 06:59 06:59
Intake Total 1370 / 1370 895 / 895 920 / 920
Output Total 600 / 600
Balance 770 / 770 895 / 895 920 / 920
[2023-11-20 06:17] LABS: Hematocrit 26.7 % (37.0-47.0); Mean Corp Hgb Conc. 34.5 g/dL (33.0-37.0); Mean Corpuscular Hgb 32.5 pg (27.0-31.0); Mean Corpuscular Volume 94.3 fL (81.0-99.0); Platelet Count 458 10^3/uL (130-400); Red Blood Cell Count 2.83 10^6/uL (4.20-5.40); Red Cell Dist. Width 24.7 % (11.5-14.5); White Blood Cell Count 8.8 10^3/uL (4.8-10.8)
[2023-11-20 06:28] LABS: Hemoglobin 9.2 g/dL (12.0-16.0)
[2023-11-20 06:38] LABS: Blood Urea Nitrogen 13 mg/dl (7-17); Calcium 8.7 mg/dl (8.4-10.2); Carbon Dioxide 22 mmol/L (22-30); Chloride 106 mmol/L (98-107); Estimated Creatinine Clearance 74 ml/min; Glucose 90 mg/dl (70-99); Potassium 3.8 mmol/L (3.5-5.1); Sodium 136 mmol/L (135-145); eGFR > 60.00
[2023-11-20 06:39] LABS: INR 1.15; PT 14.5 Sec (11.4-14.6)
[2023-11-20 07:30] VITALS: BP 201/75
[2023-11-20 07:40] VITALS: BP 202/72
[2023-11-20] MEDS: SENOKOT-S 2 TABLET PO (08:01)
[2023-11-20] MEDS: ZOLOFT 200 MG PO (08:01)
[2023-11-20] MEDS: PERCOCET 5/325 1 TABLET PO ×2 (08:05→16:15)
[2023-11-20] MEDS: COREG 12.5 MG PO (08:05)
[2023-11-20] MEDS: MIRALAX PO (08:05)
[2023-11-20] MEDS: NORVASC 5 MG PO (08:05)
[2023-11-20] MEDS: HEPARIN 5000 UNITS SC (08:06)
--- NOTE | 2023-11-20 08:08 | W.PN.GYN ---
Today's Communication / Plan
-
I Noted her blood pressure is elevated today, but she has not taken her a.m. antihypertensive medications
Patient has UTI, I will give her 1 dose of ceftriaxone. We will discharge her home on Bactrim double strength 1 tab p.o. twice daily x 5 days
Patient will be discharged home this afternoon
Physician Note
-
POD 3
Patient received 2 units of packed red blood cell yesterday, hemoglobin is 9.2 appropriately risen from 6.4.
She appears to be feeling much better today sitting at the edge of the bed eating breakfast
She is passing flatus, she continues to have some incisional pain
On clinical examination
Lungs are clear to auscultation
Heart is regular rate and rhythm
Abdomen is soft, incision is intact with bette
Extremities are without any evidence of edema
She has had appropriate return of bowel function at this time
The patient appears to be hemodynamically stable and her anemia is resolved
Etiology of anemia is still being worked up, macrocytic anemia is noted, it may be due to chronic disease
I Noted her blood pressure is elevated today, but she has not taken her a.m. antihypertensive medications
Patient has also noted to have positive urine culture which was obtained prior to the surgery essentially on admission growing E. coli. I will give her 1 dose of ceftriaxone. We will discharge her home on Bactrim double strength 1 tab p.o. twice
daily x 5 days
Patient will be discharged home this afternoon
--- NOTE | 2023-11-20 09:59 | PTOTSP ---
The patient is independent with ambulation and elevations, offering no concerns regarding her mobility upon return home. No PT needs identified at this time, will sign off.
[2023-11-20] MEDS: ROCEPHIN 2000 MG IV (10:55)
[2023-11-20] MEDS: STERILE WATER FOR INJECTION 20 ML IV (10:55)
[2023-11-20 11:00] VITALS: BP 172/75
[2023-11-20 13:02] VITALS: BP 160/64
--- NOTE | 2023-11-20 14:54 | CM ---
Discharge Plan of Care: Home with no needs.
--- NOTE | 2023-11-20 15:11 | PN.CDI ---
CDI
- -
CDI:
Physician Documentation Request
Admit Date: 11/17/23 19:17
Dear Doctor Carey,
Patient admitted for ovarian mass with torsion.
11/19 Hospitalist PN: 'Macrocytic anemia, likely chronic component. Likely some degree of blood loss from ovarian torsion in conjunction with Anemia of Chronic Disease'
Laboratory Tests
11/17/23 11/19/23
12:36 07:57
Hgb 8.3 L 6.4 L*
Hct 24.3 L 19.8 L*
Based on the above, could you clarify, in your progress note, which of the following is the most likely type of anemia you are evaluating, monitoring and/or treating?
Acute blood loss anemia with baseline chronic anemia
Macrocytic anemia
Other
Use of terms such as suspected, likely, concern for, or probable (associated with a specific diagnosis that is being evaluated, monitored, or treated as if it exists) are acceptable and can be coded in the inpatient setting, when documented at the
time of discharge.
Thank you,
Gabriella Zuleta RN, BSN
CDI Specialist
Available via [employer] text
Please use your independent medical judgment in providing your response.
--- NOTE | 2023-11-20 15:51 | W.DCSUMMARY ---
Discharge Summary
Discharge Data
Date of Admission: 11/17/23
Date of Discharge: 11/20/23
-
Pending Results: Yes
Additional Pending Results:
pathology results
Discharge Plan
-
Patient Disposition: Home (Routine Discharge)
Discharge Diagnosis/Procedures: Urinary Tract Infection, Anemia of Chronic Disease, Acute on Chronic Anemia, Acute Blood Loss, Macrocytic Anemia, Hypertension, Ovarian Mass with Torsion, Pelvic Mass status post exploratory Laparotomy bilateral
salpingo-oophorectomy, omentectomy, pelvic washings, appendectomy with excision of Meckel's Diverticulum 11/16, Mild Hyponatremia resolved, Active Smoking, Anxiety/Depression
Condition: Fair
Diet: Regular
Activity: As tolerated
Driving Restrictions: No driving while taking perocet/opiate pain med
Bathing Restrictions: None
Blood Work: repeat CBC BMP in 2-3 days of discharge. Results to be forwarded to your primary care provider and your Designer. Script has been provided to facilitate
Activity Restrictions/Additional Instructions:
Please follow up with your primary care provider in 1 week of discharge, Gynecology in 2 weeks of discharge, and Hematology in 2-4 weeks of discharge.
Bactrim DS has been prescribed for urinary tract infection, 5 days then stop (11/21/23-11/25/23).
5 Day supply of as needed Percocet for moderate to severe pain has been prescribed.
Laxatives have also be prescribed for prophylaxis against opiate induced constipation.
Home Amlodipine has been increased to 5 mg twice a day for better blood pressure control.
Please take medications as prescribed/recommended and follow up with primary care provider and/or other healthcare provider involved in your care for refills and/or further adjustment to your medication regimen as necessary.
Referrals:
Elisa Winkler MD [Family Provider] - in one week
Ernesto Alfaro MD [Active] - in two weeks
Livan Harp MD [Active] - in two to four weeks
Prescriptions:
New
sennosides-docusate sodium [Stool Softener-Stimulant Laxat] 8.6-50 mg Tablet
2 tab PO BID 14 Days Qty: 56 0RF
Rx Instructions:
Hold if diarrhea or regular bowel movements
sulfamethoxazole-trimethoprim [Bactrim DS] 800-160 mg tablet
1 tab PO BID 5 Days Qty: 10 0RF
oxycodone-acetaminophen 5-325 mg Tablet
1 tab PO Q8HPRN PRN (Reason: mod-severe pain) 5 Days Qty: 15 0RF
polyethylene glycol 3350 [Miralax] 17 gram powder in packet
17 g PO DAILY PRN (Reason: constipation) Qty: 14 0RF
Continued
carvedilol [Coreg] 12.5 mg Tablet
12.5 mg PO BID
sertraline 100 mg Tablet
200 mg PO DAILY
Changed
amlodipine 5 mg Tablet
5 mg PO BID 30 Days Qty: 60 0RF
Discharge Orders:
Discharge Patient (As Directed); Ordered 11/20/23
Ordered By: Valerie Patino
Discharge Date and Time
Print Language: ROMANSH
--- NOTE | 2023-11-20 16:37 | CM ---
Patient has been medically cleared for discharge to home with no additional skilled services. Patient has arranged for transport home.
[2023-11-22 01:09] LABS: Methylmalonic Acid 0.14 umol/L (0.00-0.40)
== END 2023-11-20 16:30 | disposition home or self-care (01) | DRG 742 ==
LOC: 2 SOUTH 19:17
PROVIDERS: Family Medicine; Internal Medicine; Internal Medicine Hematology & Oncology; Physician Assistant; ADMITTING PHYSICIAN Obstetrics & Gynecology Gynecology; CONSULT PHYSICIAN Obstetrics & Gynecology Gynecologic Oncology; EMERGENCY PHYSICIAN Emergency Medicine; FAMILY PHYSICIAN Internal Medicine; OTHER PHYSICIAN Hospitalist
PROC: 3E1M38X Irrigation of Peritoneal Cavity using Irrigating Substance, Percutaneous Approach, Diagnostic (ICD-10-PCS; 2023-11-17)
PROC: 0DB80ZZ Excision of Small Intestine, Open Approach (ICD-10-PCS; 2023-11-17)
PROC: 0DBU0ZZ Excision of Omentum, Open Approach (ICD-10-PCS; 2023-11-17)
PROC: 0DBW0ZZ Excision of Peritoneum, Open Approach (ICD-10-PCS; 2023-11-17)
PROC: 0UT70ZZ Resection of Bilateral Fallopian Tubes, Open Approach (ICD-10-PCS; 2023-11-17)
PROC: 0DTJ0ZZ Resection of Appendix, Open Approach (ICD-10-PCS; 2023-11-17)
PROC: 0UT20ZZ Resection of Bilateral Ovaries, Open Approach (ICD-10-PCS; 2023-11-17)
PROC: 30233N1 Transfusion of Nonautologous Red Blood Cells into Peripheral Vein, Percutaneous Approach (ICD-10-PCS; 2023-11-19)
DX: N83.511 Torsion of right ovary and ovarian pedicle (principal); D62 Acute posthemorrhagic anemia; R64 Cachexia; D68.9 Coagulation defect, unspecified; E87.1 Hypo-osmolality and hyponatremia; N39.0 Urinary tract infection, site not specified; D27.0 Benign neoplasm of right ovary; G89.29 Other chronic pain; M54.30 Sciatica, unspecified side; I10 Essential (primary) hypertension; D72.829 Elevated white blood cell count, unspecified; R10.30 Lower abdominal pain, unspecified; F41.9 Anxiety disorder, unspecified; B96.20 Unspecified Escherichia coli [E. coli] as the cause of diseases classified elsewhere; F32.A Depression, unspecified; F17.210 Nicotine dependence, cigarettes, uncomplicated; J44.9 Chronic obstructive pulmonary disease, unspecified; D53.9 Nutritional anemia, unspecified; Q43.0 Meckel's diverticulum (displaced) (hypertrophic); Z90.711 Acquired absence of uterus with remaining cervical stump; Z68.20 Body mass index [BMI] 20.0-20.9, adult
CPT/HCPCS: 88304; 88305; 88307; 88332; 74177; 76830; 80048; 80051; 80053; 81003; 81015; 82378; 82565; 82607; 82728; 82746; 83540; 83550; 83921; 84520; 85014; 85018; 85025; 85027; 85045; 85610; 85730; 86304; 86850; 86900; 86901; 86920; 87086; 87088; 87186; 88112; 88313; 88331; 88341; 88342; 96361; 96374; 96375; 96376; 97162; 99285; 99406; P9016; Q9967

== ENCOUNTER → 2024-03-09 07:02 | Outpatient (REF) | payer MEDICARE, OTHER, SELFPAY | LOC: MRI 07:02 | PROVIDERS: FAMILY PHYSICIAN Family Medicine | DX: M54.17 Radiculopathy, lumbosacral region (principal) | CPT/HCPCS: 72148 ==

== ENCOUNTER → 2024-05-14 06:45 | Outpatient (REF) | payer MEDICARE, OTHER, SELFPAY ==
[2024-05-14 07:26] LABS: % Basophils 0.7 % (0-2); % Immature Granulocytes 0.5 % (0-0.5); % Lymphocytes 20.5 % (20.5-51.1); % Monocytes 10.7 % (1.7-9.3); % Neutrophils 66.6 % (42.2-75.2); Absolute Basophils 0.1 10^3/uL (0-0.2); Absolute Eosinophils 0.1 10^3/uL (0-0.7); Absolute Immature Granulocytes 0.1 10^3/uL (0-0.05); Absolute Lymphocytes 1.9 10^3/uL (1.2-3.4); Absolute Neutrophils 6.1 10^3/uL (1.4-6.5); Hemoglobin 8.5 g/dL (12.0-16.0); Mean Corpuscular Hgb 36.5 pg (27.0-31.0); Mean Corpuscular Volume 107.3 fL (81.0-99.0); Mean Platelet Volume 9.4 fL (7.4-10.4); Nucleated Red Blood Cells % 0.9 %; Platelet Count 483 10^3/uL (130-400); Red Blood Cell Count 2.33 10^6/uL (4.20-5.40); Red Cell Dist. Width 23.5 % (11.5-14.5); White Blood Cell Count 9.2 10^3/uL (4.8-10.8)
[2024-05-14 07:34] LABS: INR 1.17; PT 14.7 Sec (11.4-14.6)
[2024-05-14] MEDS: ATIVAN 0.5 MG IV (08:28)
[2024-05-14] MEDS: NSS (PRESERVATIVE FREE) 0.25 ML IV (08:28)
[2024-05-14] MEDS: FLUSH (NSS) 1 FLUSH IV (08:28)
== END ==
LOC: RADI 06:45
PROVIDERS: ATTENDING PHYSICIAN Internal Medicine Hematology & Oncology; FAMILY PHYSICIAN Nurse Practitioner Family
DX: D64.9 Anemia, unspecified (principal); D27.0 Benign neoplasm of right ovary; D68.8 Other specified coagulation defects
CPT/HCPCS: 88305; 88311; 88312; 36415; 38222; 77012; 85025; 85610; 88313

== ENCOUNTER 2024-12-03 11:29 | Outpatient (RCR) | payer MEDICARE, OTHER, SELFPAY ==
[2024-12-03] MEDS: RECLAST 100 IV (11:55)
[2024-12-03 12:01] VITALS: BP 129/62
== END 2024-12-04 09:29 | disposition home or self-care (01) ==
LOC: OID 11:29
PROVIDERS: ATTENDING PHYSICIAN Family Medicine
DX: M81.0 Age-related osteoporosis without current pathological fracture (principal)
CPT/HCPCS: 96365; J3489

== ENCOUNTER → 2024-12-03 14:01 | Outpatient (REF) | payer MEDICARE, OTHER, SELFPAY | LOC: WDC 14:01 | PROVIDERS: ATTENDING PHYSICIAN Family Medicine | DX: I73.9 Peripheral vascular disease, unspecified (principal); Z12.31 Encounter for screening mammogram for malignant neoplasm of breast | CPT/HCPCS: 77063; 77067; 93922; 93925 ==

== ENCOUNTER 2024-12-05 11:35 | Emergency (ER) | payer MEDICARE, OTHER, SELFPAY ==
[2024-12-05 11:35] VITALS: BMI 19.3
[2024-12-05 11:37] VITALS: BP 109/51
[2024-12-05 12:00] VITALS: BP 107/78
[2024-12-05 12:03] LABS: % Basophils 0.8 % (0-2); % Eosinophils 0.9 % (0-6); % Immature Granulocytes 0.7 % (0-0.5); % Lymphocytes 9.5 % (20.5-51.1); % Monocytes 10.6 % (1.7-9.3); % Neutrophils 77.5 % (42.2-75.2); Absolute Basophils 0.1 10^3/uL (0-0.2); Absolute Eosinophils 0.2 10^3/uL (0-0.7); Absolute Immature Granulocytes 0.1 10^3/uL (0-0.05); Absolute Lymphocytes 1.6 10^3/uL (1.2-3.4); Absolute Monocytes 1.7 10^3/uL (0.1-0.6); Absolute Neutrophils 12.7 10^3/uL (1.4-6.5); Hematocrit 31.1 % (37.0-47.0); Hemoglobin 10.4 g/dL (12.0-16.0); Mean Corp Hgb Conc. 33.4 g/dL (33.0-37.0); Mean Corpuscular Hgb 36.4 pg (27.0-31.0); Mean Corpuscular Volume 108.7 fL (81.0-99.0); Mean Platelet Volume 9.9 fL (7.4-10.4); Nucleated Red Blood Cells % 0.7 %; Platelet Count 450 10^3/uL (130-400); Red Blood Cell Count 2.86 10^6/uL (4.20-5.40); Red Cell Dist. Width 21.9 % (11.5-14.5); White Blood Cell Count 16.4 10^3/uL (4.8-10.8)
[2024-12-05 12:15] LABS: ALT (SGPT) 12 U/L (0-35); AST (SGOT) 14 U/L (14-36); Albumin 3.7 g/dl (3.5-5.0); Alkaline Phosphatase 73 U/L (38-126); Blood Urea Nitrogen 21 mg/dl (7-17); Calcium 8.3 mg/dl (8.4-10.2); Carbon Dioxide 24 mmol/L (22-30); Chloride 105 mmol/L (98-107); Glucose 174 mg/dl (70-99); Lipase 73 U/L (23-300); Potassium 4.4 mmol/L (3.5-5.1); Sodium 136 mmol/L (135-145); Total Bilirubin 1.3 mg/dl (0.2-1.3); Total Protein 6.9 g/dl (6.3-8.2); eGFR 54.39
[2024-12-05 12:26] LABS: Troponin I 0.012 ng/ml
[2024-12-05 14:00] VITALS: BP 102/74
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
[2024-12-05 16:32] VITALS: BP 160/75
[2024-12-05 17:53] LABS: Urine Albumin 3+ (Neg - Trace); Urine Bilirubin Negative (Negative); Urine Character Clear (Clear); Urine Color Yellow; Urine Glucose Negative (Negative); Urine Ketone Negative (Negative); Urine Leukocyte Negative (Negative); Urine Nitrite Negative (Negative); Urine Occult Blood Negative (Negative); Urine Urobilinogen Negative (Neg - 1+)
[2024-12-05 18:34] LABS: Urine Squamous Cell >30 /LPF (Few)
[2024-12-05 18:35] LABS: Urine Red Blood Cell 0-2 /HPF (0-2); Urine White Cell 0-2 /HPF (0-5)
[2024-12-05] MEDS: ATIVAN 0.5 MG PO (19:02)
== END 2024-12-05 19:18 | disposition home or self-care (01) ==
LOC: EMR 11:35
PROVIDERS: Emergency Medicine; EMERGENCY PHYSICIAN Student in an Organized Health Care Education/Training Program; FAMILY PHYSICIAN Family Medicine
DX: R42 Dizziness and giddiness (principal); J44.9 Chronic obstructive pulmonary disease, unspecified; I10 Essential (primary) hypertension; Z87.891 Personal history of nicotine dependence; Z90.710 Acquired absence of both cervix and uterus
CPT/HCPCS: 99284; 70450; 74177; 80053; 81003; 81015; 83690; 84484; 85025; 93005; Q9967

== ENCOUNTER 2024-12-06 20:59 | Inpatient (IN) | payer MEDICARE, OTHER, SELFPAY ==
[2024-12-06] VITALS (23 sets, daily range): BP systolic 90–151; BP diastolic 52–76; BMI 18.0
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
[2024-12-06] MEDS: CARDIZEM 10 MG IV (18:24)
--- NOTE | 2024-12-06 18:38 | EDRN ---
Received patient on stretcher with continued c/o right sided chest pressure and abdominal pain. Patient stated 'I just don't feel well.' Monitor showing rapid Afib. Patient denies h/o Afib. Denies dizziness and SOB. +nausea.
notified and into see the patient. Patient medicated with Cardizem 10mg IV.
[2024-12-06 18:46] LABS: % Basophils 0.5 % (0-2); % Eosinophils 0.2 % (0-6); % Immature Granulocytes 0.4 % (0-0.5); % Lymphocytes 8.8 % (20.5-51.1); % Monocytes 7.6 % (1.7-9.3); % Neutrophils 82.5 % (42.2-75.2); Absolute Basophils 0.1 10^3/uL (0-0.2); Absolute Immature Granulocytes 0.1 10^3/uL (0-0.05); Absolute Lymphocytes 1.5 10^3/uL (1.2-3.4); Absolute Monocytes 1.3 10^3/uL (0.1-0.6); Absolute Neutrophils 13.6 10^3/uL (1.4-6.5); Hematocrit 34.1 % (37.0-47.0); Hemoglobin 11.5 g/dL (12.0-16.0); Mean Corp Hgb Conc. 33.7 g/dL (33.0-37.0); Mean Corpuscular Hgb 35.8 pg (27.0-31.0); Mean Corpuscular Volume 106.2 fL (81.0-99.0); Mean Platelet Volume 10.8 fL (7.4-10.4); Nucleated Red Blood Cells % 0.4 %; Platelet Count 390 10^3/uL (130-400); Red Blood Cell Count 3.21 10^6/uL (4.20-5.40); Red Cell Dist. Width 21.5 % (11.5-14.5); White Blood Cell Count 16.4 10^3/uL (4.8-10.8)
[2024-12-06] MEDS: NSS 1000 IV ×3 (18:46→23:31)
[2024-12-06] MEDS: CARDIZEM 125 IV (18:46)
[2024-12-06 19:03] LABS: ALT (SGPT) 38 U/L (0-35); AST (SGOT) 43 U/L (14-36); Albumin 4.5 g/dl (3.5-5.0); Alkaline Phosphatase 81 U/L (38-126); Blood Urea Nitrogen 22 mg/dl (7-17); Calcium 8.2 mg/dl (8.4-10.2); Carbon Dioxide 23 mmol/L (22-30); Chloride 105 mmol/L (98-107); Estimated Creatinine Clearance 37 ml/min; Glucose 119 mg/dl (70-99); Magnesium 2.2 mg/dl (1.6-2.3); Potassium 4.4 mmol/L (3.5-5.1); Sodium 135 mmol/L (135-145); Total Bilirubin 1.6 mg/dl (0.2-1.3); Total Protein 7.4 g/dl (6.3-8.2); eGFR 54.39
[2024-12-06 19:12] LABS: Troponin I 0.021 ng/ml
[2024-12-06 19:30] LABS: TSH Reflex To Free T4 8.67 uIU/ml (0.47-4.68)
[2024-12-06 19:59] LABS: Free T4 1.16 ng/dl (0.78-2.19)
--- NOTE | 2024-12-06 20:51 | HPS.HSE ---
Family Physician
-
Family Physician: Jacinta Brown
Chief Complaint
-
Flank pain, lightheadedness
History of Present Illness
Patient is a 69y F with PMH significant for hypertension and depression who presents to ED complaining of lightheadedness, fatigue, chest pain and flank pain. Patient states that she has felt somewhat fatigued and 'tired' for the past year or
so. Yesterday she had a bout of lightheadedness, dizziness and nausea. She also noted abrupt onset of R flank pain. She presented to the ED for evaluation at that time. Patient denied any actual syncope / LOC. No chest pain or palpitations.
Patient was evaluated in the ED and discharged to home.
Today she continued to feel lightheaded and generally poor. She had continued pain in the R flank and also developed pain in the chest / substernal area.
With worsening / persistent symptoms, she returned to the ED for evaluation.
On arrival to the ED today, patient was noted to be in tachyarrhythmia with rates near 150 bpm.
She has no appreciable palpitations. She denies any prior history of heart disease.
Medical History
Past Medical History
Past Medical History: Reports Other
Additional Past Medical History:
Hypertension
Depression
Ovarian Torsion / Benign Mass
Past Surgical History: Reports Other
Additional Past Surgical History:
Back Surgery
Partial Hysterectomy
Ex Lap with BSO, appendectomy, Meckel's diverticulum resection (October 2023)
Social History
Tobacco: Smoker (Current every day smoker. 1 ppd. > 50 pack years total use.)
Alcohol: None
Drug: None
Family History
Family History: Other (Mother: Longevity, Breast Ca, Colon Ca Brother: Gastric Ca, Esophageal Ca)
Allergies / Home Medications
Allergies reflects when Allergies were last updated in [facility].
Home Medications with original date entered in [facility]
Allergy/Medication List:
Allergies
Allergy/AdvReac Type Severity Reaction Status Date / Time
No Known Allergies Allergy Verified 12/06/24 17:30
Home Medications
carvedilol 12.5 mg tablet (Coreg) 12.5 mg PO BID 11/20/23
sertraline 100 mg tablet 200 mg PO DAILY 11/20/23
amlodipine 5 mg tablet 5 mg PO QPM 12/06/24
Review of Systems
-
History Source: Patient
A 12 point ROS was completed and negative except as noted: Yes
Constitutional: Reports Fatigue; Denies Fever or Chills
Respiratory: Denies Cough or Trouble Breathing
Cardiac: Reports Chest Pain; Denies Palpitations or Syncope
Abdomen/GI: Reports Abdominal Pain and Nausea; Denies Vomiting, Diarrhea, Bloody Stools or Black Stools
: Reports Flank Pain; Denies Dysuria, Frequency or Bleeding
Musculoskeletal: Denies Joint Pain or Edema
Neurological: Reports Dizzy; Denies Headache
Psych: Denies Depression or Anxiety
Physical Exam
Vital Signs
Vital Signs
Temp Pulse Resp BP Pulse Ox
98.7 F 122 24 98/58 96
12/06/24 17:30 12/06/24 20:15 12/06/24 20:15 12/06/24 20:15 12/06/24 20:15
Physical Exam
General: Other (69y F in no acute distress.)
HEENT: Other (Dry MM. Neck supple.)
Respiratory: Clear; No Wheezes, Rales or Rhonchi
Cardiac: S1/S2, Irregular Rhythm and Tachycardia; No Murmur
GI: Soft, Non Distended, Normal Bowel Sounds and Other (Pos tenderness far R abdomen / R flank.)
Musculoskeletal: No Clubbing, No Cyanosis and No Edema
Neuro: AO x 3
Laboratory Results
-
12/06/24 18:29
12/06/24 18:29
Laboratory Results
Total Bilirubin 1.6 mg/dl (0.2-1.3) H 12/06/24 18:
AST 43 U/L (14-36) H 12/06/24 18:
ALT 38 U/L (0-35) H 12/06/24 18:
Alkaline Phosphatase 81 U/L (38-126) 12/06/24 18:
Troponin I 0.021 ng/ml 12/06/24 18:
Impression/Plan
-
A/P: Patient is a 69y F with PMH significant for hypertension and depression who presents to ED complaining of flank pain, chest pain and lightheadedness.
Atrial Fibrillation / Flutter with Rapid Ventricular Response
- Admit for further evaluation and treatment.
- Continue IV diltiazem and titrate as needed for adequate rate control.
- IV heparin for embolic risk reduction.
- Cardiology evaluation for additional recommendations.
- IVF as need for BP support.
- Hold usual outpatient BP medications to avoid hypotension / allow adequate rate control.
- Consider change to amiodarone if hypotension limits rate control despite volume.
Renal Artery Stenosis / Possible Renal Infarct
NENITA - likely secondary to the above
- CT scan done during ED visit 12/05 showed decreased perfusion to the R kidney compared to the L.
- Suspect embolic event given newly recognized A-Fib / Flutter.
- Risk factors for ASCVD as well including hypertension, ongoing smoking, etc.
- IV heparin as noted above.
- IVF support.
- SCr = 1.1 compared to baseline of 0.4. Follow for improvement.
- Nephrology evaluation for additional recommendations.
- Check MRI / MRA renal arteries after acute arrhythmia addressed / rate control achieved.
Benign Hypertension
- Currently hypotensive - likely combination of hypovolemia and tachycardia.
- Hold amlodipine / carvedilol acutely.
- IVF support as noted above.
MDS
Leukocytosis
- Patient has macrocytic anemia due to MDS. Does not appear to have chronic leukocytosis.
- Hgb is stable.
- Leukocytosis likely stress response due to renal injury / infarct - follow for improvement.
Anxiety Depression
- Stable. Continue sertraline.
Tobacco Use Disorder
- Affects all aspects of care.
- Encourage smoking cessation - though patient does not seem motivated to quit.
DVT Prophylaxis: On IV Heparin
Code Status: Full
[2024-12-06 20:56] LABS: LDH 919 U/L (120-246)
[2024-12-06 22:23] LABS: Hematocrit 27.5 % (37.0-47.0); Hemoglobin 9.7 g/dL (12.0-16.0); Mean Corp Hgb Conc. 35.3 g/dL (33.0-37.0); Mean Corpuscular Hgb 37.3 pg (27.0-31.0); Mean Corpuscular Volume 105.8 fL (81.0-99.0); Mean Platelet Volume 9.8 fL (7.4-10.4); Platelet Count 310 10^3/uL (130-400); Red Cell Dist. Width 22.3 % (11.5-14.5); White Blood Cell Count 11.9 10^3/uL (4.8-10.8)
[2024-12-06 22:30] LABS: APTT 36.8 Sec (23.4-35.0)
[2024-12-06 22:47] LABS: Troponin I 0.077 ng/ml
[2024-12-06] MEDS: HEPARIN 25000 UNITS/250 ML IV (23:30)
[2024-12-06] MEDS: HEPARIN 3000 UNITS IV (23:30)
--- NOTE | 2024-12-07 00:19 | PTCARENOTE ---
Pt. admitted to room 2254 from ED AAOx3, VSS, NSR 60's-80's with PVC's on the monitor. Ambulates with steady gait. No complaints of chest pain. Does complain of sporadic right flank pain level 5/10 with movement, denies need for pain medication.
Second troponin resulted 0.077; hospitalist [employer] Lynnette notified (pt. still CP free). Heparin bolus administered as ordered and drip initiated at 600 units/hr. Pt. oriented to room and plan of care, understanding verbalized. Currently resting
quietly.
[2024-12-07 04:30] VITALS: BP 161/64
[2024-12-07 05:18] LABS: Hematocrit 25.6 % (37.0-47.0); Hemoglobin 8.6 g/dL (12.0-16.0); Mean Corp Hgb Conc. 33.6 g/dL (33.0-37.0); Mean Corpuscular Volume 107.1 fL (81.0-99.0); Mean Platelet Volume 10.7 fL (7.4-10.4); Platelet Count 323 10^3/uL (130-400); Red Blood Cell Count 2.39 10^6/uL (4.20-5.40); Red Cell Dist. Width 21.4 % (11.5-14.5); White Blood Cell Count 9.8 10^3/uL (4.8-10.8)
[2024-12-07 05:34] LABS: APTT 37.9 Sec (23.4-35.0)
[2024-12-07 05:39] LABS: ALT (SGPT) 28 U/L (0-35); AST (SGOT) 27 U/L (14-36); Albumin 3.5 g/dl (3.5-5.0); Alkaline Phosphatase 68 U/L (38-126); Blood Urea Nitrogen 18 mg/dl (7-17); Calcium 7.2 mg/dl (8.4-10.2); Carbon Dioxide 24 mmol/L (22-30); Chloride 111 mmol/L (98-107); Direct Bilirubin 0.1 mg/dl (0.0-0.4); Estimated Creatinine Clearance 46 ml/min; Glucose 89 mg/dl (70-99); Potassium 3.7 mmol/L (3.5-5.1); Sodium 138 mmol/L (135-145); Total Bilirubin 1.1 mg/dl (0.2-1.3); Triglyceride 116 mg/dl (10-149); Urine Albumin 3+ (Neg - Trace); Urine Bilirubin Negative (Negative); Urine Character Clear (Clear); Urine Color Amber; Urine Glucose Negative (Negative); Urine Ketone Negative (Negative); Urine Leukocyte Negative (Negative); Urine Nitrite Negative (Negative); Urine Occult Blood 1+ (Negative); Urine Urobilinogen 1+ (Neg - 1+); eGFR > 60.00
[2024-12-07 05:40] LABS: HDL Cholesterol 57 mg/dl; LDL Cholesterol, Calculated 45 mg/dl; Total Cholesterol 125 mg/dl (50-199); Very Low Density Lipoprotein 23 mg/dl (0-30)
[2024-12-07 06:01] LABS: Urine Squamous Cell >30 /LPF (Few)
[2024-12-07 06:02] LABS: Urine Bacteria Few (Negative)
[2024-12-07 06:07] LABS: Troponin I 0.395 ng/ml
[2024-12-07 08:16] VITALS: BP 174/77
--- NOTE | 2024-12-07 08:17 | CON.CAR ---
Addendum entered and electronically signed by Zac Tafoya DO 12/07/24 08:50:
Addendum:
Hold statin for now 2/2 elevated liver enzymes; monitor while in-patient. Will likely need given considerable risk factors.
Original Note:
Consultation
Consultation Request
Date/Time Consultation Requested: 12/07/2024, 0640
Date/Time Consultation Performed: 12/07/2024, 0800
Requesting Provider: Jacobo
Performing Provider: Michelet
Reason for Consultation: CP, AF
Medical History
-
Chief Complaint: CP
History of Present Illness:
Patient is a pleasant 69-year-old female with a past medical history significant for hypertension, mixed dyslipidemia, aortic atherosclerosis, MDS, osteoporosis, COPD, tobacco use disorder, recent diagnosis of peripheral arterial disease by vascular
ultrasound who presents due to chest discomfort and feeling unwell. Patient reports on 12/06/2024, patient had been feeling unwell. This happened all of a sudden when she noted some chest discomfort/aching in the center of her chest and in her
right flank. She noted that nothing aggravated or alleviated the discomfort. She noted no other associated symptoms with this. Patient denied any palpitations, lightheadedness, dizziness, near-syncope, syncope, PND, orthopnea, edema, shortness of
breath, or weakness. Patient subsequently presented to the emergency department for evaluation. In the emergency department, patient was noted to be in AF RVR started on heparin and IV diltiazem. Patient had spontaneous return to sinus rhythm
with rate control. In discussion with patient, she notes resolution of symptoms following return to sinus rhythm. Initial troponin was 0.012 which increased to 0.021 then 0.077 and most recent 0.395. CT head unremarkable. CT abdomen pelvis with
IV contrast abnormal perfusion and lack of excretion in the right kidney suggesting impaired renal function, possible renal artery stenosis which is new, hypodense areas of the right kidney which were may represent cysts however solid mass in
polynephritis not be excluded which is also new; bilateral benign adrenal hyperplasia which is stable too small to characterize hypodense bilateral renal lesions likely cysts which are stable moderate atherosclerotic vascular disease which is stable
moderate free fluid in the pelvis etiology unknown uncommon postmenopausal female, progressed. Her remaining lab work was unremarkable. On telemetry monitoring, patient remains in sinus rhythm since admission to the floor. Patient is a current
active smoker 1 pack/day, no alcohol, no illicits. Patient is a positive family history of cardiovascular disease with father with CVA. Of note, patient reports chronic claudication type symptoms. Patient with vascular ultrasound by her primary
care physician this past week which demonstrated peripheral arterial disease.
Past Medical History
Past Medical History: Other (See HPI)
Past Surgical History: Other (Back surgery, hysterectomy)
Social History
Tobacco: Smoker
Alcohol: None
Drug: None
Personal:
Living: With Family
Employment: Retired
Family History
Family History: Other (Father CVA)
Allergies / Home Medications
Allergy/AdvReac Type Severity Reaction Status Date / Time
No Known Allergies Allergy Verified 12/06/24 17:30
�Medication �Instructions �Recorded �Confirmed �Type
carvedilol 12.5 mg tablet (Coreg) 12.5 mg PO BID 11/20/23 12/06/24 History
sertraline 100 mg tablet 200 mg PO DAILY 11/20/23 12/06/24 History
amlodipine 5 mg tablet 5 mg PO QPM 12/06/24 12/06/24 History
Review of Systems
-
History Source: Patient
All other systems: Negative unless noted
Constitutional: No Symptoms
EENT: No Symptoms
Respiratory: No Symptoms
Cardiac: Chest Pain
Abdomen/GI: Abdominal Pain
: Flank Pain
Musculoskeletal: No Symptoms
Skin: No Symptoms
Neurological: No Symptoms
Endocrine: No Symptoms
Hematologic/Lymphatic: No Symptoms
Physical Exam
Vital Signs
Temp Pulse Resp BP Pulse Ox
98.2 F 76 16 161/64 95
12/07/24 04:30 12/07/24 04:30 12/07/24 04:30 12/07/24 04:30 12/07/24 04:30
Lab Results
12/07/24 04:47
12/07/24 04:47
Troponin I 0.395 ng/ml H* D 12/07/24 04:47
Physical exam:
GENERAL: no acute distress
EYE: sclera anicteric
NECK: Supple, no JVD, no carotid bruit appreciated
ENT: normal nose, moist mucosal membranes
CARDIAC: Regular rate and rhythm, +S1/S2, no murmur, rubs, or gallops
CHEST/PULMONARY: Normal effort, clear breath sounds
ABDOMEN: Soft, without focal tenderness or distention
NEUROLOGICAL: Alert and oriented x3
SKIN: Warm and dry, no rash
PSYCH: Normal and appropriate interaction.
Impression / Plan
-
Primary care: Dr. Jacinta Brown
Sales Account Representative: Dr. Bro Jones
Impression:
Acute myocardial injury, likely secondary to AF RVR
� Likely underlying ischemic heart disease in the setting of known aortic atherosclerosis and recent diagnosis peripheral arterial disease
� Troponin peak 0.395, repeat pending
� On heparin
� On carvedilol, amlodipine for hypertension; not on statin therapy
Paroxysmal atrial fibrillation, symptomatic
� [id number]: 4 (hypertension, age, vascular disease, gender). Currently on IV heparin
� Spontaneous return to sinus rhythm while in ED on IV Cardizem
� No prior history
Hypertension, elevated
� On carvedilol, amlodipine as outpatient
� Possible renal artery stenosis by CT scan
Dyslipidemia
� Not on statin therapy
� Lipid panel 12/07/2024 total 125, LDL 45, HDL 57, triglyceride 116
Peripheral arterial disease, new diagnosis
� Lower extremity ultrasound 12/03/2024 right ankle-brachial index 0.76 with mild peripheral arterial disease range, TBI diminished 2.5 to moderate stenosis of the profundofemoral artery, high-grade stenosis in the proximal and mid superficial
femoral artery, popliteal waveforms remain multiphasic. Left HORTENCIA mildly diminished 0.92 left TBI 0.59 mild stenosis of left common femoral artery with high-grade stenosis of the left profundofemoral artery
� Recommended by primary care for follow-up with vascular surgery
Tobacco use disorder, continuous
� Noted 1 pack/day
� Interested in quitting; counseled patient > 10 minutes regarding importance of smoking cessation
Recommendations:
� Trend troponin to peak, likely secondary to AF RVR with underlying vascular disease/coronary disease; will likely need ischemic evaluation given her elevated risk
� 2D echocardiogram to assess cardiac size, shape, function, and valvular anatomy
� Aspirin 81 mg daily for peripheral vascular disease and acute myocardial injury
� Patient's LDL is less than 55 however would likely start statin therapy in the setting of peripheral vascular disease and noted atherosclerosis of the aorta as well as myocardial injury
� Monitor on telemetry
� Further recommendations to follow
Discussed with nursing
Data Reviewed
-
EKG: Tracing Personally Visualized and interpreted
Radiology: Report Reviewed by me
CT Scan: Report Reviewed by me
Ultrasound: Report Reviewed by me
Labs: Labs Reviewed by me
Old Records: Reviewed
[2024-12-07] MEDS: NSS 1000 IV ×2 (08:23→19:05)
[2024-12-07] MEDS: ZOLOFT 200 MG PO (08:23)
[2024-12-07] MEDS: COREG 25 MG PO ×2 (08:23→19:54)
--- NOTE | 2024-12-07 09:00 | PTCARENOTE ---
recieved PT from rn birthing RN; PT aaox3 w/o complaints of pain; NSR on monitor VSS; RA 97% decreased lung sounds; GI and WNL; ; IVsx2 WNL; heparin and NS gtt's running; see worklist for detailed assessment
--- NOTE | 2024-12-07 09:33 | W.CON.NEPH ---
Consultation
-
Date/Time Consultation Requested: 12/06/2024 7:00 PM
Date/Time Consultation Performed: 11/27/2024 930 AM
Requesting Provider: Dr. Centeno
Performing Provider: Dr. León
Reason for Consultation: Acute kidney injury/hypertension/suspected renal infarct
Medical History
-
Chief Complaint: NENITA/BERT/HTN
History of Present Illness:
Patient is a 69y F with PMH significant for hypertension ( on amlodipine and and Coreg) and depression ( on sertraline) who presents to ED complaining of lightheadedness, fatigue, chest pain and flank pain. Patient states that she has felt
somewhat fatigued and 'tired' for the past year or so. Yesterday she had a bout of lightheadedness, dizziness and nausea. She also noted abrupt onset of R flank pain. She presented to the ED for evaluation at that time. Patient denied any actual
syncope / LOC. No chest pain or palpitations. Patient was evaluated in the ED and discharged to home.
She continued to feel lightheaded and generally poor. She had continued pain in the R flank and also developed pain in the chest / substernal area.
With worsening / persistent symptoms, she returned to the ED for evaluation.
On arrival to the ED patient was noted to be in tachyarrhythmia with rates near 150 bpm.
She has no appreciable palpitations. She denies any prior history of heart disease.
In the emergency department, patient was noted to be in AF RVR started on heparin and IV diltiazem. Patient had spontaneous return to sinus rhythm with rate control. In discussion with patient, she notes resolution of symptoms following return to
sinus rhythm. Initial troponin was 0.012 which increased to 0.021 then 0.077 and most recent 0.395. CT head unremarkable. CT abdomen pelvis with IV contrast abnormal perfusion and lack of excretion in the right kidney suggesting impaired renal
function, possible renal artery stenosis which is new, hypodense areas of the right kidney which were may represent cysts however solid mass in polynephritis not be excluded which is also new; bilateral benign adrenal hyperplasia which is stable too
small to characterize hypodense bilateral renal lesions likely cysts which are stable moderate atherosclerotic vascular disease which is stable moderate free fluid in the pelvis etiology unknown uncommon postmenopausal female, progressed. . On
telemetry monitoring, patient remains in sinus rhythm since admission to the floor. Patient with vascular ultrasound by her primary care physician this past week which demonstrated peripheral arterial disease. Nephrology was consulted as she had
an elevated creatinine of 1.1 off of her baseline of 0.6 and there was concern for possible right renal infarct given her flank pain and eventual elevated LDH.
Past Medical History
Hypertension
Depression
Ovarian Torsion / Benign Mass
Peripheral vascular disease
Partial
History of ex lap with BSO appendectomy (11/14)
Social History
Tobacco: Smoker
Alcohol: None
Drug: None
Family History
no ckd but multiple malignancies
Allergies / Home Medications
Allergy/AdvReac Type Severity Reaction Status Date / Time
No Known Allergies Allergy Verified 12/06/24 17:30
�Medication �Instructions �Recorded �Confirmed �Type
carvedilol 12.5 mg tablet (Coreg) 12.5 mg PO BID Blood Pressure 11/20/23 12/06/24 History
sertraline 100 mg tablet 200 mg PO DAILY Mental 11/20/23 12/06/24 History
Health/Anxiety
amlodipine 5 mg tablet 5 mg PO QPM Blood Pressure 12/06/24 12/06/24 History
Review of Systems
-
History Source: Patient
All other systems: Negative unless noted
EENT: No Symptoms
Respiratory: No Symptoms
Cardiac: Palpitations
Abdomen/GI: Diarrhea
: Other (Right flank pain now improving)
Musculoskeletal: Other (Claudication pain in legs)
Physical Exam
Vital Signs
Vital Signs
Temp Pulse Resp BP Pulse Ox
98.2 F 77 16 174/77 95
12/07/24 04:30 12/07/24 08:16 12/07/24 04:30 12/07/24 08:23 12/07/24 04:30
Lab Results
12/07/24 04:47
12/07/24 04:47
WBC 9.8 10^3/uL (4.8-10.8) 12/07/24 04:47
RBC 2.39 10^6/uL (4.20-5.40) L 12/07/24 04:47
Hgb 8.6 g/dL (12.0-16.0) L 12/07/24 04:47
Hct 25.6 % (37.0-47.0) L 12/07/24 04:47
Plt Count 323 10^3/uL (130-400) 12/07/24 04:47
Sodium 138 mmol/L (135-145) 12/07/24 04:47
Potassium 3.7 mmol/L (3.5-5.1) 12/07/24 04:47
Chloride 111 mmol/L (98-107) H 12/07/24 04:47
Carbon Dioxide 24 mmol/L (22-30) 12/07/24 04:47
BUN 18 mg/dl (7-17) H 12/07/24 04:47
Creatinine 0.9 mg/dL (0.6-1.0) 12/07/24 04:47
eGFR > 60.00 12/07/24 04:47
Glucose 89 mg/dl (70-99) 12/07/24 04:47
Calcium 7.2 mg/dl (8.4-10.2) L 12/07/24 04:47
Albumin 3.5 g/dl (3.5-5.0) 12/07/24 04:47
Physical Exam
General: AOx3, Nontoxic , NAD
HEENT: PERRL, EOMI, Anicteric, Conjunctivae Clear, Ear/Nose Intact, Hearing Normal, Oropharynx Clear/Moist, Dentition Intact, Facial Symmetry, Neck Supple, Neck: Trachea Midline, No JVD and No Thyromegaly, no Bruits
Respiratory: Coarse to auscultation but decreased to the bases bilaterally with normal lung exersion
Cardiac: S1/S2 and Regular Rate/Rhythm
Breast: Deferred by me
Abdomen: Soft, Nontender, Nondistended, Normal Bowel Sounds and No Hepatosplenomegaly
Rectal: Deferred by Provider
Genito-urinary: No Costovertebral Tenderness
Extremities: No Clubbing, No Cyanosis and No Edema
Skin: No Rash or open lesions
Neuro: Nonfocal/Grossly Intact, CN II-XII (Intact) and Strength (Musculoskeletal exam 5 out of 5 both upper and lower extremities)
Hematologic/Lymphatic: No Cervical Lymphadenopathy, No Submandibular Lymphadenopathy and No Supraclavicular Lymphadenopathy
Psych: Mood/afflect pleasant, Insight/judgement good and Appropriate
Vascular: Poorly palpable
Data Reviewed
-
Radiology: Report Reviewed by me
CT Scan: Report Reviewed by me (CT scan of abdomen and pelvis reviewed noting likely bilateral renal artery stenosis and decreased perfusion of right kidney)
Medical Tests (Nuc Med, Echo etc): Other (EKG report reviewed which noted A-fib at 124 bpm)
Labs: Labs Reviewed by me (BMP CBC, UA)
Old Records: Reviewed (Reviewed old medical record labs including creatinine of 0.4 from 11/20/2023)
Assessment/Plan
-
Impression:
NENITA
Right Flank pain
Possible right renal infarct with bilateral BERT by CAT scan
New onset atrial fibrillation and/or atrial flutter with RVR
History of HTN
MDS
Anxiety depression
PAD
Plan:
- CT scan notes bilateral BERT with decreased perfusion of right kidney and abnormal hypodense lesions which could be reflection of renal infarcts in setting of new onset of atrial dysrhythmia with subsequent embolic event
- Continue heparin drip in setting of atrial dysrhythmia and possible right renal infarct (elevated LDH of 900 supports infarct)
- Will require oral anticoagulation
- Will eventually require MRA of kidney vasculature to further explore renal artery vasculature
- Maintain blood pressure control with carvedilol , will likely add calcium channel hallie back
- Urinalysis noted 1+ blood and 3+ albumin
- Right flank pain now resolved
- Okay for isotonic IV fluids
- Follow-up BMP in a.m.
[2024-12-07] MEDS: ASPIR LOW (ENTERIC COATED) 81 MG PO (09:40)
--- NOTE | 2024-12-07 11:16 | W.PN.HOSP.TC ---
Today's Communication/Plan
-
renew drips
cont IVF
follow creat and troponin
MRA Monday
consideration for vascular consult
Assessment / Plan
Assessment / Plan
pt is a 69 year old female
New onset Atrial Fibrillation/Flutter with Rapid Ventricular Response --Continue IV diltiazem and titrate as needed for adequate rate control--apprec cards--cont IV heparin--Hold usual outpatient BP medications to avoid hypotension/allow adequate
rate control
NSTEMI--from rapid rate in pt with known PAD--troponins rising--cont IV heparin--apprec cards
Renal Artery Stenosis/Possible Renal Infarct with NENITA--likely embolic from new onset afib=-CT scan done during ED visit 12/05 showed decreased perfusion to the R kidney compared to the L--Risk factors for ASCVD as well including hypertension,
ongoing smoking--cont IV heparin--apprec renal input--for Monday--consider vascular consult---SCr = 1.1 compared to baseline of 0.4--cont IVF
Essential Hypertension--Hold amlodipine/carvedilol acutely--IVF
MDS with Leukocytosis--Patient has macrocytic anemia due to MDS. Does not appear to have chronic leukocytosis--Hgb is stable--Leukocytosis likely stress response due to renal injury/infarct - follow for improvement.
Anxiety Depression- Stable. Continue sertraline.
Tobacco Use Disorder- Affects all aspects of care-- Encourage smoking cessation - though patient does not seem motivated to quit.
DVT Prophylaxis: On IV Heparin
Code Status: Full
Anticipated Discharge: > 48 hours
Subjective/Interval History
-
Date of Service: December 07, 2024
pt without c/o--hungry
Objective Data
-
Labs:
Laboratory Results
12/07/24 12/07/24
04:47 11:06
WBC 9.8
Hgb 8.6 L
Hct 25.6 L
Plt Count 323
APTT 37.9 H Pending
Sodium 138
Potassium 3.7
Chloride 111 H
Carbon Dioxide 24
BUN 18 H
Creatinine 0.9
Glucose 89
Calcium 7.2 L
Total Bilirubin 1.1
AST 27
ALT 28
Alkaline Phosphatase 68
Vital Signs:
max temp for 24 hours
12/06/24
17:30
Temp 98.7 F
Vital Signs
Temp Pulse Resp BP Pulse Ox
98.2 F 77 16 174/77 95
12/07/24 04:30 12/07/24 08:16 12/07/24 04:30 12/07/24 08:23 12/07/24 04:30
I&O
12/06/24 12/07/24 12/08/24
06:59 06:59 06:59
Intake Total 1090 / 1090
Output Total 400 / 400
Balance 690 / 690
Review of Systems
-
All other systems: Reviewed and negative
Physical Exam
-
General: Well Developed and Well Nourished
HEENT: Normocephalic and Atraumatic; Negative Oxygen
Respiratory: Clear to Auscultation; Negative Wheezes or Rhonchi
Cardiac: Regular Rhythm and S1/S2; Negative Murmur
GI: Soft, Nontender, Nondistended and Normal Bowel Sounds
Musculoskeletal: No Clubbing, No Cyanosis and No Edema
Neuro: Awake and Alert
Psych: Calm
[2024-12-07 11:28] LABS: APTT 37.8 Sec (23.4-35.0)
--- NOTE | 2024-12-07 12:00 | PTCARENOTE ---
no change from previous assessment: see worklist for detailed assessment
[2024-12-07 14:11] VITALS: BP 138/48
[2024-12-07 18:26] VITALS: BP 165/61
[2024-12-07 18:30] VITALS: BP 161/59
[2024-12-07 18:41] LABS: APTT 38.8 Sec (23.4-35.0)
[2024-12-07 19:00] LABS: Troponin I 0.347 ng/ml
[2024-12-07 22:15] VITALS: BP 143/67
[2024-12-08] VITALS (10 sets, daily range): BP systolic 146–174; BP diastolic 53–65
[2024-12-08] MEDS: HEPARIN 25000 UNITS/250 ML IV ×2 (00:47→15:33)
[2024-12-08 01:26] LABS: APTT 61.5 Sec (23.4-35.0)
--- NOTE | 2024-12-08 01:28 | PTCARENOTE ---
Pt. remains in NSR this shift. Denies any pain/discomfort. Heparin gtt infusing as per order. Pt. ambulates frequently without difficulty. Currently sleeping.
[2024-12-08] MEDS: NSS 1000 IV (03:53)
--- NOTE | 2024-12-08 08:20 | PTCARENOTE ---
Rec'd pt at handoff. Tele remains SR. HR 70-80s. Pt has no complaints pain/discomfort/dizziness at this time. Assessment completed as documented. Heparin gtt infusing at 14 ml/hr and NSS gtt infusing at 100 ml/hr. Plan of care reviewed w/ pt and
verbalizes understanding. Currently in bed; call haynes w/in reach.
[2024-12-08] MEDS: COREG 25 MG PO ×2 (08:22→18:42)
[2024-12-08] MEDS: ASPIR LOW (ENTERIC COATED) 81 MG PO (08:22)
[2024-12-08] MEDS: ZOLOFT 200 MG PO (08:22)
[2024-12-08 08:23] LABS: Hematocrit 24.9 % (37.0-47.0); Hemoglobin 8.3 g/dL (12.0-16.0); Mean Corp Hgb Conc. 33.3 g/dL (33.0-37.0); Mean Corpuscular Hgb 36.7 pg (27.0-31.0); Mean Corpuscular Volume 110.2 fL (81.0-99.0); Mean Platelet Volume 10.4 fL (7.4-10.4); Platelet Count 335 10^3/uL (130-400); Red Blood Cell Count 2.26 10^6/uL (4.20-5.40); Red Cell Dist. Width 20.9 % (11.5-14.5); White Blood Cell Count 7.3 10^3/uL (4.8-10.8)
[2024-12-08 08:27] LABS: APTT 59.2 Sec (23.4-35.0)
[2024-12-08 08:37] LABS: ALT (SGPT) 23 U/L (0-35); AST (SGOT) 19 U/L (14-36); Albumin 3.4 g/dl (3.5-5.0); Alkaline Phosphatase 70 U/L (38-126); Blood Urea Nitrogen 10 mg/dl (7-17); Calcium 7.2 mg/dl (8.4-10.2); Carbon Dioxide 24 mmol/L (22-30); Chloride 116 mmol/L (98-107); Estimated Creatinine Clearance 52 ml/min; Glucose 136 mg/dl (70-99); Magnesium 2.1 mg/dl (1.6-2.3); Potassium 3.7 mmol/L (3.5-5.1); Sodium 141 mmol/L (135-145); Total Bilirubin 0.7 mg/dl (0.2-1.3); Total Protein 5.8 g/dl (6.3-8.2); eGFR > 60.00
[2024-12-08 08:45] LABS: Troponin I 0.233 ng/ml
--- NOTE | 2024-12-08 09:10 | W.PN.NEPH.PH ---
Today's Communication / Plan
-
Add amlodipine 5 mg daily
DC further IV fluid
MRA of renal artery vasculature tomorrow
Assessment/Plan
-
Impression:
NENITA
Right Flank pain
Possible right renal infarct with bilateral BERT by CAT scan
New onset atrial fibrillation and/or atrial flutter with RVR
History of HTN
MDS
Anxiety depression
PAD
Plan:
- CT scan notes bilateral BERT with decreased perfusion of right kidney and abnormal hypodense lesions which could be reflection of renal infarcts in setting of new onset of atrial dysrhythmia with subsequent embolic event
- Continue heparin drip in setting of atrial dysrhythmia and possible right renal infarct (elevated LDH of 900 supports infarct)
- Will require oral anticoagulation
- Will require MRA of kidney vasculature to further explore renal artery vasculature
- Maintain blood pressure control with carvedilol , will likely add calcium channel hallie back norvasc 5mg daily
- Urinalysis noted 1+ blood and 3+ albumin
- Right flank pain now resolved
- Creatinine improved to 0.8, no more IV fluids need
-
-
Date of Service: December 08, 2024
CC / HPI / ROS
-
Chief Complaint:
NENITA
Renal infarct
History of Present Illness:
Hemodynamically stable blood pressure running high
Creatinine down to 0.8
Remains in intermittent atrial fibrillation
Review of Systems:
Nonoliguric
No chest pain or shortness of
No right flank pain
Labs
-
Labs:
WBC 7.3 10^3/uL (4.8-10.8) 12/08/24 08:05
RBC 2.26 10^6/uL (4.20-5.40) L 12/08/24 08:05
Hgb 8.3 g/dL (12.0-16.0) L 12/08/24 08:05
Hct 24.9 % (37.0-47.0) L 12/08/24 08:05
Plt Count 335 10^3/uL (130-400) 12/08/24 08:05
Sodium 141 mmol/L (135-145) 12/08/24 08:05
Potassium 3.7 mmol/L (3.5-5.1) 12/08/24 08:05
Chloride 116 mmol/L (98-107) H 12/08/24 08:05
Carbon Dioxide 24 mmol/L (22-30) 12/08/24 08:05
BUN 10 mg/dl (7-17) 12/08/24 08:05
Creatinine 0.8 mg/dL (0.6-1.0) 12/08/24 08:05
eGFR > 60.00 12/08/24 08:05
Glucose 136 mg/dl (70-99) H 12/08/24 08:05
Calcium 7.2 mg/dl (8.4-10.2) L 12/08/24 08:05
Albumin 3.4 g/dl (3.5-5.0) L 12/08/24 08:05
Physical Exam
-
Vital Signs:
Vital Signs
Temp Pulse Resp BP Pulse Ox
97.3 F 74 20 165/60 93
12/08/24 07:57 12/08/24 08:00 12/08/24 07:57 12/08/24 07:57 12/08/24 07:57
Cardiovascular:: Regular rate and rhythm
Respiratory:: Bilateral: CTA
Lung Excursion:: Normal
Abdomen:: Nontender and Soft
Bowel Sounds:: Normal
Extremity Edema:: None: Bilateral:
Lima Catheter: No
--- NOTE | 2024-12-08 09:12 | W.PN.CARDCBS ---
Today's Communication / Plan
-
Continue IV heparin.
Eventual ischemic evaluation, n.p.o. after midnight.
Will discuss further with hematology regarding safety of antiplatelet agents
2D echocardiogram Monday
Impression / Plan
-
Primary care: Dr. Jacinta Brown
Fowl Blood Tester: Dr. Bro Jones
Impression:
Chest pain with elevated troponins, non-STEMI, peak troponin 0.490
New diagnosis, symptomatic paroxysmal atrial fibrillation spontaneously converted to sinus rhythm, 12/06/2024
Possible renal artery stenosis
Hypertension
Hyperlipidemia not previously on medical therapy
PAD with claudication
Right carotid bruit
COPD
Tobacco abuse disorder currently 1 pack a day
Macrocytic anemia
Neurogenic claudication
Degenerative disc disease
Plan:
Chest pain with elevated troponin in the setting of rapid atrial fibrillation with multiple cardiac risk factors including PAD
� Likely underlying ischemic heart disease in the setting of known aortic atherosclerosis and recent diagnosis peripheral arterial disease
� Troponin peak 0.49
-Currently chest pain-free
-Aspirin 81 mg daily
�Continue IV heparin drip; Hemoglobin has dropped from a admission hemoglobin of 11. Patient had a hemoglobin of 6.4 back in October 2023 with a history of MDS followed by oncology.
�Start atorvastatin 20 mg daily; Goal LDL less than 70 mg/dL. LDL prestatin was 45 However she has significant vascular disease and would benefit from statin therapy
-Blood pressure control
-Eventual left heart catheterization once discussed safety of antiplatelet therapy with hematology given anemia/MDS. She did require transfusion in October 2023.
-2D echocardiogram Monday.
Paroxysmal atrial fibrillation, symptomatic
� [id number]: 4 (hypertension, age, vascular disease, gender).
-Currently on IV heparin
� Spontaneous return to sinus rhythm while in ED on IV Cardizem
� Eventual transition from heparin to a NOAC
Hypertension, elevated
� On carvedilol, amlodipine as outpatient
-Concern for renal artery stenosis will hold off adding ALDAIR inhibitor at this time.
� Possible renal artery stenosis by CT scan
-Will discuss with interventional cardiology further evaluation of renal arteries at the time of cardiac catheterization, timing to be determined
Dyslipidemia
� Not on statin therapy. Prehospitalization but placed on atorvastatin 20 mg daily for benefit given PAD
� Lipid panel 12/07/2024 total 125, LDL 45, HDL 57, triglyceride 116
Peripheral arterial disease, new diagnosis
� Lower extremity ultrasound 12/03/2024 right ankle-brachial index 0.76 with mild peripheral arterial disease range, TBI diminished 2.5 to moderate stenosis of the profundofemoral artery, high-grade stenosis in the proximal and mid superficial
femoral artery, popliteal waveforms remain multiphasic. Left HORTENCIA mildly diminished 0.92 left TBI 0.59 mild stenosis of left common femoral artery with high-grade stenosis of the left profundofemoral artery
� Recommended by primary care for follow-up with vascular surgery
Right carotid bruit�check carotid ultrasound
Tobacco use disorder, continuous
� Noted 1 pack/day
� Interested in quitting; counseled patient > 10 minutes regarding importance of smoking cessation
Progress Note - Fowl Blood Tester
Subjective
Date of Service: December 08, 2024
Seen and examined. Denies chest pain or pressure. Does report exertional claudication prior to hospitalization.
Objective
Labs:
12/08/24 08:05
12/08/24 08:05
Labs
Hgb 8.3 g/dL (12.0-16.0) L 12/08/24 08:05
Hct 24.9 % (37.0-47.0) L 12/08/24 08:05
Plt Count 335 10^3/uL (130-400) 12/08/24 08:05
APTT 59.2 Sec (23.4-35.0) H 12/08/24 08:05
Sodium 141 mmol/L (135-145) 12/08/24 08:05
Potassium 3.7 mmol/L (3.5-5.1) 12/08/24 08:05
BUN 10 mg/dl (7-17) 12/08/24 08:05
Creatinine 0.8 mg/dL (0.6-1.0) 12/08/24 08:05
Glucose 136 mg/dl (70-99) H 12/08/24 08:05
Troponins
12/06/24 12/06/24 12/07/24
18:29 22:04 04:47
Troponin I 0.021 0.077 H* D 0.395 H* D
12/07/24 12/07/24 12/08/24
11:06 18:21 08:05
Troponin I 0.490 H* 0.347 H* D 0.233 H*
Vital Signs and I&O:
Vital Signs
Temp Pulse Resp BP Pulse Ox
97.3 F 74 20 165/60 93
12/08/24 07:57 12/08/24 08:00 12/08/24 07:57 12/08/24 07:57 12/08/24 07:57
Vital Signs
Temp Pulse Resp BP Pulse Ox
97.3 F 74 20 165/60 93
12/08/24 07:57 12/08/24 08:00 12/08/24 07:57 12/08/24 07:57 12/08/24 07:57
Intake & Output
12/06/24 12/07/24 12/08/24 12/09/24
06:59 06:59 06:59 06:59
Intake Total 1090 / 1090 1979
Output Total 400 / 400
Balance 690 / 690 1979
Physical Exam
Physical Exam
General: No acute distress, AAOX3
Neck: Negative JVD + right bruit
Heart: Regular, positive S1/S2, 2/6 IFEOMA
Lungs: Bronchovesicular coarse breath sounds.
Abd: Positive BS, NT/ND, neg rebound/rigidity/guarding
Ext: No edema
Neuro: nonfocal
--- NOTE | 2024-12-08 09:46 | W.PN.HOSP.TC ---
Today's Communication/Plan
-
stop IVF
renew IV heparin
MRA in AM for BERT eval
vascular consult in AM
Assessment / Plan
Assessment / Plan
pt is a 69 year old female
New onset Atrial Fibrillation/Flutter with Rapid Ventricular Response ----apprec cards--cont IV heparin--Hold usual outpatient BP medications to avoid hypotension/allow adequate rate control
NSTEMI--from rapid rate in pt with known PAD--troponins peaked at 0.49--cont IV heparin--apprec cards
Renal Artery Stenosis/Possible Renal Infarct with NENITA--likely embolic from new onset afib--CT scan done during ED visit 12/05 showed decreased perfusion to the R kidney compared to the L--Risk factors for ASCVD as well including hypertension,
ongoing smoking--cont IV heparin--apprec renal input--for MRA Monday-- vascular consult Monday---stop IVF
Essential Hypertension--restart amlodipine
MDS with Leukocytosis--Patient has macrocytic anemia due to MDS. Does not appear to have chronic leukocytosis--Hgb is stable--Leukocytosis likely stress response due to renal injury/infarct - follow for improvement.
Anxiety/Depression- Stable. Continue sertraline.
Tobacco Use Disorder- -Affects all aspects of care-- Encourage smoking cessation - though patient does not seem motivated to quit.
DVT Prophylaxis: On IV Heparin
Code Status: Full
Anticipated Discharge: > 48 hours
Subjective/Interval History
-
Date of Service: December 08, 2024
pt without c/o
Objective Data
-
Labs:
Laboratory Results
12/08/24 12/08/24 12/08/24
01:07 08:05 14:50
WBC 7.3
Hgb 8.3 L
Hct 24.9 L
Plt Count 335
APTT 61.5 H 59.2 H Pending
Sodium 141
Potassium 3.7
Chloride 116 H
Carbon Dioxide 24
BUN 10
Creatinine 0.8
Glucose 136 H
Calcium 7.2 L
Total Bilirubin 0.7
AST 19
ALT 23
Alkaline Phosphatase 70
Vital Signs:
max temp for 24 hours
12/07/24
18:48
Temp 99.3 F
Vital Signs
Temp Pulse Resp BP Pulse Ox
97.3 F 74 20 165/60 93
12/08/24 07:57 12/08/24 08:00 12/08/24 07:57 12/08/24 07:57 12/08/24 07:57
I&O
12/07/24 12/08/24 12/09/24
06:59 06:59 06:59
Intake Total 1090 / 1090 1979 / 575
Output Total 400 / 400
Balance 690 / 690 1979 57
Review of Systems
-
All other systems: Reviewed and negative
Physical Exam
-
General: Well Developed, Well Nourished and No Apparent Distress
HEENT: Normocephalic and Atraumatic
Respiratory: Clear to Auscultation; Negative Wheezes or Rhonchi
Cardiac: Irregular Rhythm; Negative Murmur
GI: Soft, Nontender, Nondistended and Normal Bowel Sounds
Musculoskeletal: No Clubbing, No Cyanosis and No Edema
Skin: Warm
Neuro: Awake
[2024-12-08] MEDS: NORVASC 5 MG PO (10:28)
--- NOTE | 2024-12-08 13:37 | CHAP ---
Leonilaadanmarty said she was doing well. She welcomed prayer. Emotional and spiritual support provided.
[2024-12-08 15:27] LABS: APTT 59.4 Sec (23.4-35.0)
--- NOTE | 2024-12-08 20:29 | PTCARENOTE ---
Assumed care on pt at 1900, pt resting in bed without any c/o pain/dizziness/SOB. SR on the monitor, HR 60-70's. Coreg given earlier(previous shift) d/t elevated BP. BP rechecked at this time, improved but still remains on the 160/50's. Pt daily
smoker, nicotine patch/nicotine gum offered and refused at this time. Heparin infusing at 1800 unit/hour. Call haynes within reach, POC ongoing.
[2024-12-08 21:40] LABS: APTT 127.6 Sec (23.4-35.0)
[2024-12-09] VITALS (14 sets, daily range): BP systolic 142–176; BP diastolic 47–106
--- NOTE | 2024-12-09 03:00 | PTCARENOTE ---
BP 168/68, Hr 66, pt asymptomatic. 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
[2024-12-09 04:26] LABS: Hematocrit 25.2 % (37.0-47.0); Hemoglobin 8.4 g/dL (12.0-16.0); Mean Corp Hgb Conc. 33.3 g/dL (33.0-37.0); Mean Corpuscular Hgb 35.9 pg (27.0-31.0); Mean Corpuscular Volume 107.7 fL (81.0-99.0); Mean Platelet Volume 10.2 fL (7.4-10.4); Platelet Count 367 10^3/uL (130-400); Red Blood Cell Count 2.34 10^6/uL (4.20-5.40); White Blood Cell Count 8.5 10^3/uL (4.8-10.8)
[2024-12-09 04:38] LABS: APTT 97.4 Sec (23.4-35.0)
[2024-12-09 05:16] LABS: Blood Urea Nitrogen 10 mg/dl (7-17); Calcium 7.8 mg/dl (8.4-10.2); Carbon Dioxide 23 mmol/L (22-30); Chloride 113 mmol/L (98-107); Estimated Creatinine Clearance 52 ml/min; Glucose 95 mg/dl (70-99); Potassium 3.6 mmol/L (3.5-5.1); Sodium 141 mmol/L (135-145); eGFR > 60.00
[2024-12-09] MEDS: HEPARIN 25000 UNITS/250 ML IV (05:23)
[2024-12-09] MEDS: ZOLOFT 200 MG PO (07:54)
[2024-12-09] MEDS: ASPIR LOW (ENTERIC COATED) 81 MG PO (07:54)
[2024-12-09] MEDS: COREG 25 MG PO ×2 (07:55→20:10)
[2024-12-09] MEDS: NORVASC 5 MG PO (07:55)
[2024-12-09] MEDS: LIPITOR 20 MG PO (07:55)
--- NOTE | 2024-12-09 08:15 | PTCARENOTE ---
Patient sent to MRA on a stretcher. All jewelry removed. Voided pre-procedure
--- NOTE | 2024-12-09 11:02 | PTCARENOTE ---
Patient returned to IVU. MRI, carotid US and echo completed. Heparin infusing at 1700 units/hr. VSS, right flank tenderness. NSR, no edema, weak PP, denies chest pain. NPO maintained for now. Order received for Renal US transport called.
--- NOTE | 2024-12-09 12:10 | W.PN.NEPH.PH ---
Today's Communication / Plan
-
await vas recs
Assessment/Plan
-
Impression:
NENITA
Right Flank pain
Possible right renal infarct with bilateral BERT by CAT scan
New onset atrial fibrillation and/or atrial flutter with RVR
History of HTN
MDS
Anxiety depression
PAD
Plan:
- CT scan notes bilateral BERT with decreased perfusion of right kidney and abnormal hypodense lesions which could be reflection of renal infarcts in setting of new onset of atrial dysrhythmia with subsequent embolic event
MRA noted from today-multifocal infarction of right kidney and >70% BERT bilat, renal duplex per vasc
Continue heparin drip in setting of atrial dysrhythmia
for [facility] per cards today
Maintain blood pressure control with carvedilol ,back on Amlodipine 12/08-likely titrate up dose
- Urinalysis noted 1+ blood and 3+ albumin-need f/u lab
- Creatinine stable at 0.8
-
-
Date of Service: December 09, 2024
CC / HPI / ROS
-
Chief Complaint:
NENITA
Renal infarct
History of Present Illness:
Hemodynamically stable blood pressure running high
Creatinine stable at 0.8
Review of Systems:
Nonoliguric
No chest pain or shortness of
Labs
-
Labs:
WBC 8.5 10^3/uL (4.8-10.8) 12/09/24 04:17
RBC 2.34 10^6/uL (4.20-5.40) L 12/09/24 04:17
Hgb 8.4 g/dL (12.0-16.0) L 12/09/24 04:17
Hct 25.2 % (37.0-47.0) L 12/09/24 04:17
Plt Count 367 10^3/uL (130-400) 12/09/24 04:17
Sodium 141 mmol/L (135-145) 12/09/24 04:17
Potassium 3.6 mmol/L (3.5-5.1) 12/09/24 04:17
Chloride 113 mmol/L (98-107) H 12/09/24 04:17
Carbon Dioxide 23 mmol/L (22-30) 12/09/24 04:17
BUN 10 mg/dl (7-17) 12/09/24 04:17
Creatinine 0.8 mg/dL (0.6-1.0) 12/09/24 04:17
eGFR > 60.00 12/09/24 04:17
Glucose 95 mg/dl (70-99) 12/09/24 04:17
Calcium 7.8 mg/dl (8.4-10.2) L 12/09/24 04:17
Albumin 3.4 g/dl (3.5-5.0) L 12/08/24 08:05
Physical Exam
-
Vital Signs:
Vital Signs
Temp Pulse Resp BP Pulse Ox
98.5 F 75 18 160/57 94
12/08/24 22:50 12/09/24 11:00 12/08/24 22:50 12/09/24 07:57 12/08/24 23:20
Cardiovascular:: Regular rate and rhythm
Respiratory:: Bilateral: CTA
Lung Excursion:: Normal
Abdomen:: Nontender and Soft
Extremity Edema:: None: Bilateral:
Lima Catheter: No
--- NOTE | 2024-12-09 12:47 | CON.VAS ---
Addendum entered and electronically signed by Stephen Lima III, MD 12/10/24 13:57:
This patient was seen and examined in collaboration with LEW Minor. I agree with the history and physical exam as well as the assessment and plan. I have the following additions:
69-year-old female with multiple PAD risk factors including hypertension, hyperlipidemia and long-term/active smoking history.
Presented several days ago with right flank pain
NSTEMI and new onset atrial fibrillation
Cross-sectional imaging performed on 12/05/2024 revealed asymmetric enhancement of the kidneys with calcified plaque at the origin of the renal arteries bilaterally right renal infarcts identified. By my interpretation the superior mesenteric artery
is occluded proximally.
Renal artery duplex reveals renal artery stenosis by velocity criteria
MR angiogram of the abdomen and pelvis revealed renal artery stenosis along with SMA and celiac occlusions.
Currently she has no flank or abdominal pain
Denies change in appetite
Denies postprandial abdominal pain
Denies changes in bowel function
On physical exam she is well-appearing and in no acute distress
Palpable brachial and radial pulses bilaterally
Abdomen is soft and nontender throughout
I suspect her asymmetric kidney enhancement and right renal infarcts are related to her high-grade renal artery stenosis. She has heavily calcified bilateral renal artery stenosis. Given these findings my recommendation is for renal arteriogram
and possible endovascular intervention. The technical aspects of this procedure were discussed with her in detail. The benefits and rationale for this approach were discussed with her in detail. Operative risks were discussed with her in detail
including but not limited to bleeding, arterial access site injury, distal embolization, renal artery injury, infection, wound healing complications, technical failure/inability to successfully complete endovascular intervention, loss of kidney
function, kidney failure and need for hemodialysis. She expressed a clear understanding of our conversation and agrees to proceed with surgery as detailed above.
Signed:
Stephen Lima III, MD
Vascular Surgery
[facility]
Original Note:
Consultation
Consultation Request
Date/Time Consultation Performed: 12/09/24 1100
Requesting Provider: Hospitalist
Performing Provider: Tory Del Rosario, MARIAN-C for Stephen Lima III, MD
Reason for Consultation: Concern for right renal artery stenosis
Medical History
-
Chief Complaint: Concern for renal artery stenosis in setting of NSTEMI with CP
History of Present Illness:
This is a 69-year-old female with significant past medical history for hypertension, mixed dyslipidemia, aortic atherosclerosis, MDS, osteoporosis, COPD, active smoker, peripheral arterial disease, and depression who presented to [facility] ED on
12/06/2024 with reports of lightheadedness, fatigue, chest pain, and right flank pain. She was subsequently admitted for management of new onset atrial fibrillation, renal infarct, and NSTEMI. Vascular surgery has been consulted for concern of
renal artery stenosis in setting of recent renal infarct, patient currently is anticoagulated on heparin infusion. Currently patient offers no complaints and reports she is resting comfortably in bed. Patient denies history of claudication or rest
pain. Denies prior evaluations from a vascular surgeon. Does endorse continued tobacco use. Abdominal MRA for evaluation of renal artery stenosis pending.
Past Medical History
Past Medical History: Other (hypertension, mixed dyslipidemia, aortic atherosclerosis, MDS, osteoporosis, COPD, active smoker, peripheral arterial disease, and depression)
Past Surgical History: Other (Back Surgery, Partial Hysterectomy Ex Lap with BSO, appendectomy, Meckel's diverticulum resection (October 2023))
Social History
Tobacco: Smoker (Current every day smoker. 1 ppd. > 50 pack years total use.)
Allergies / Home Medications
Allergy/AdvReac Type Severity Reaction Status Date / Time
No Known Allergies Allergy Verified 12/06/24 17:30
�Medication �Instructions �Recorded �Confirmed �Type
carvedilol 12.5 mg tablet (Coreg) 12.5 mg PO BID Blood Pressure 11/20/23 12/06/24 History
sertraline 100 mg tablet 200 mg PO DAILY Mental 11/20/23 12/06/24 History
Health/Anxiety
amlodipine 5 mg tablet 5 mg PO QPM Blood Pressure 12/06/24 12/06/24 History
Review of Systems
-
History Source: Patient
Constitutional: Reports Fatigue
EENT: Reports No Symptoms
Respiratory: Reports No Symptoms
Cardiac: Reports Chest Pain
Vascular: Denies Leg Pain / Claudication, Numbness or Tingling
Abdomen/GI: Reports No Symptoms
: Reports Flank Pain (Right-sided flank pain upon admission)
Musculoskeletal: Reports No Symptoms
Skin: Reports No Symptoms
Neurological: Reports No Symptoms
Endocrine: Reports No Symptoms
Physical Exam
Vital Signs
Temp Pulse Resp BP Pulse Ox
97.9 F 75 20 160/57 96
12/09/24 12:15 12/09/24 11:00 12/09/24 12:15 12/09/24 07:57 12/09/24 12:15
Lab Results
12/09/24 04:17
12/09/24 04:17
Troponin I 0.233 ng/ml H* 12/08/24 08:05
Physical Exam
General: No Apparent Distress
HEENT: Normocephalic, Anicteric and Atraumatic
Respiratory: Non Labored Respirations
Cardiac: Negative JVD
GI: Soft, Non Tender and Non Distended
Musculoskeletal: No Edema
Skin: Warm and Dry
Neuro: AO x 3
Pulses: Left Dorsalis Pedis: +1 and Right Dorsalis Pedis: +2 (Unable to palpate bilateral PT pulse)
Assessment / Plan
-
Assessment: 69-year-old female with concern for renal artery stenosis following right renal infarct, currently also being worked up for NSTEMI and new onset atrial fibrillation, evidence of extensive aortoiliac arterial disease as demonstrated by
CT.
Plan:
Will obtain renal artery ultrasound to further evaluate degree of renal artery stenosis, MRI of abdomen is also pending for evaluation of renal artery stenosis. Will follow-up with official vascular surgical plan per attending and evaluation of
MRA final report and renal artery ultrasound.
I performed this shared service with the attending. I evaluated the patient [id number] and have entered clinical documentation as shown in the encounter note. I performed the following component(s):�history and physical exam. Note that medical
decision making is not final until attested by vascular attending.
Data Reviewed
-
CT Scan: Report Reviewed by me and Discussed with Physician
Labs: Labs Reviewed by me
[2024-12-09 13:15] LABS: APTT 83.4 Sec (23.4-35.0)
--- NOTE | 2024-12-09 13:55 | PTCARENOTE ---
Patient sent to the vp lab
--- NOTE | 2024-12-09 14:29 | W.PN.HOSP.TC ---
Today's Communication/Plan
-
Monitor vital signs see plan
Renal ultrasound
Continue with IV heparin
cath
Assessment / Plan
Assessment / Plan
pt is a 69 year old female
New onset Atrial Fibrillation/Flutter with Rapid Ventricular Response ----apprec cards--cont IV heparin--now in normal sinus rhythm, echo 12/09 with EF 60%.
NSTEMI--from rapid rate in pt with known PAD--troponins peaked at 0.49--cont IV heparin--apprec cards
Plan for possible cath 12/09
Renal Artery Stenosis/Possible Renal Infarct with NENITA--likely embolic from new onset afib--CT scan done during ED visit 12/05 showed decreased perfusion to the R kidney compared to the L--Risk factors for ASCVD as well including hypertension,
ongoing smoking--cont IV heparin--apprec renal input--MRI with renal artery stenosis, vascular surgery consulted. Plan for renal artery ultrasound
Essential Hypertension--cw amlodipine
MDS with Leukocytosis--Patient has macrocytic anemia due to MDS. Does not appear to have chronic leukocytosis--Hgb is stable--Leukocytosis likely stress response due to renal injury/infarct - follow for improvement.
Anxiety/Depression- Stable. Continue sertraline.
Tobacco Use Disorder- -Affects all aspects of care-- Encourage smoking cessation - though patient does not seem motivated to quit.
DVT Prophylaxis: On IV Heparin
Code Status: Full
General: Well Developed, Well Nourished and No Apparent Distress
HEENT: Normocephalic and Atraumatic
Respiratory: Clear to Auscultation; Negative Wheezes or Rhonchi
Cardiac: Irregular Rhythm; Negative Murmur
GI: Soft, Nontender, Nondistended and Normal Bowel Sounds
Musculoskeletal: No Clubbing, No Cyanosis and No Edema
Skin: Warm
Neuro: Awake
Anticipated Discharge: 24 - 48 hours
Subjective/Interval History
-
Date of Service: December 09, 2024
Denies pain
Objective Data
-
Labs:
Laboratory Results
12/09/24 12/09/24 12/09/24
04:17 12:50 19:45
WBC 8.5
Hgb 8.4 L
Hct 25.2 L
Plt Count 367
APTT 97.4 H 83.4 H Pending
Sodium 141
Potassium 3.6
Chloride 113 H
Carbon Dioxide 23
BUN 10
Creatinine 0.8
Glucose 95
Calcium 7.8 L
Vital Signs:
Vital Signs
Temp Pulse Resp BP Pulse Ox
97.9 F 75 20 160/57 96
12/09/24 12:15 12/09/24 11:00 12/09/24 12:15 12/09/24 07:57 12/09/24 12:15
I&O
12/08/24 12/09/24 12/10/24
06:59 06:59 06:59
Intake Total 1979 1215 / 1215
Balance 1979 1215 / 1215
--- NOTE | 2024-12-09 15:13 | ITS.CL.CATH ---
Custodial Laborer - Catheterization
Cardiac Catheterization
Procedure Report:
LEFT HEART CATHETERIZATION
Date of Procedure: December 09, 2024
Referring: Dr. Angelica Vang
PROCEDURES:
1. Left heart catheterization with coronary and single-plane left ventriculography
INDICATION: This is a 69-year-old female with a past medical history notable for hypertension, mixed hyperlipidemia, aortic atherosclerotic disease, COPD, osteoporosis, and recent diagnosis of peripheral vascular disease. She was admitted to
[facility] on 12/07/2024 with complaints of chest discomfort in the center of the chest and in the right flank. While in the emergency department she was noted to be in atrial fibrillation with a rapid ventricular response and was started
on IV heparin. Her troponin level was serially following peaking at 0.490 ng/mL. CT scans were notable for bilateral renal artery stenosis with decreased perfusion of the right kidney and possible renal infarct. Earlier today she underwent MR AAA
notable for multifocal infarction of the right kidney with greater than 70% renal artery stenosis bilaterally. She is now referred for coronary angiography.
ACCESS: Right radial artery, 6 Sami sheath
HEMODYNAMICS : (mmHg)
AO (s/d) : 141/57, 88
LV (s/d) : 156/6
LVEDP : 14
CORONARY FINDINGS
DOMINANCE: Right
LEFT MAIN: Normal
LEFT ANTERIOR DESCENDING: The LAD arises normally from the left main and runs in the anterior interventricular groove. The LAD has minor irregularities over its course but no focal obstructive stenosis. A single diagonal branch arises from the
proximal LAD and has minor irregularities.
CIRCUMFLEX: The circumflex is a large-caliber nondominant vessel with minor irregularities over its course.
RIGHT CORONARY ARTERY: The right coronary artery is a dominant vessel with a 40-50% stenosis in its midportion. The remainder of the right coronary artery is widely patent. The PDA is large and widely patent. The posterolateral branch is large
and widely patent
VENTRICULOGRAPHY: Left ventriculography is performed in an ROD projection. The digital single-plane left ventricular ejection fraction is visually estimated at 55%. No regional wall motion abnormalities are noted
SEDATION: 30 minutes of procedural sedation was utilized. An independent medical information specialist was present to assist with and help manage the patient's level of consciousness and physiologic status.
RADIATION SUMMARY: Fluoro Time (min): 2.9, Dose (mGy): 155, DAP (Gy.cm2) : 11
Closure Device: TR band
CONCLUSIONS
1. Mild coronary disease involving the mid right coronary artery with 40-50% stenosis.
2. Preserved LV systolic function
RECOMMENDATIONS
1. Medical therapy for coronary artery disease to include high intensity statin and aggressive blood pressure control for goal blood pressure of less than 130/80
2. Can begin oral anticoagulation once vascular surgery decides on treatment of renal artery stenosis
3. Could consider stress testing for recurring symptoms if there is concern that the angiographically mild-moderate mid RCA stenosis is potentially responsible for symptoms.
Copy to: Dr. Zac Tafoya
--- NOTE | 2024-12-09 15:44 | W.PN.UPDATE ---
Update Note
Progress Note Update
Patient is status post cardiac catheterization, no indication for PCI. Tentative plan for OR tomorrow (12/10/2024) for bilateral renal artery angiogram with possible intervention to right renal artery with Dr. Stephen Lima III. N.p.o. at midnight,
reviewed with cardiology and patient will continue heparin infusion in preparation for our angiogram. Updated hospitalist via [place] text.
--- NOTE | 2024-12-09 16:26 | CM ---
Chart reviewed. Patient is independent of ADLS, lives with her in a [address], 3 [address], 0 DME. Plan is for the patient to return home. CM to follow
[2024-12-09] MEDS: NSS 1000 IV (16:36)
--- NOTE | 2024-12-09 17:41 | PTCARENOTE ---
Patient received from that labor contractor, right radial band CDI. Patient AO x3. NSR, IVF infusing. Heparin on hold until 8pm (will restart heparin at 1700 units/hr at 2000, at previous rate). Tolerated diet. Voided 300 cc of yellow urine in hat. Call
haynes in reach
--- NOTE | 2024-12-09 21:32 | PTCARENOTE ---
Received pt @ change of shift. AAOx3. BP 149/61, other VSS-- NSR on monitor. Right radial site clean, dry, and intact. Soft to touch, no swelling or ecchymosis. Restarted heparin @ 1700 units/hr @ 2029. Discussed plan for evening and being NPO after
midnight. Pt verbalizes understanding. Call haynes within reach.
[2024-12-10] VITALS (9 sets, daily range): BP systolic 147–187; BP diastolic 57–77
[2024-12-10 02:59] LABS: % Basophils 0.8 % (0-2); % Eosinophils 3.1 % (0-6); % Immature Granulocytes 0.3 % (0-0.5); % Lymphocytes 29.4 % (20.5-51.1); % Monocytes 9.6 % (1.7-9.3); % Neutrophils 56.8 % (42.2-75.2); Absolute Basophils 0.1 10^3/uL (0-0.2); Absolute Eosinophils 0.2 10^3/uL (0-0.7); Absolute Lymphocytes 2.1 10^3/uL (1.2-3.4); Absolute Monocytes 0.7 10^3/uL (0.1-0.6); Hematocrit 23.7 % (37.0-47.0); Mean Corp Hgb Conc. 33.8 g/dL (33.0-37.0); Mean Corpuscular Hgb 36.9 pg (27.0-31.0); Mean Corpuscular Volume 109.2 fL (81.0-99.0); Mean Platelet Volume 11.1 fL (7.4-10.4); Nucleated Red Blood Cells % 0.3 %; Platelet Count 401 10^3/uL (130-400); Red Blood Cell Count 2.17 10^6/uL (4.20-5.40); Red Cell Dist. Width 20.9 % (11.5-14.5); White Blood Cell Count 7.1 10^3/uL (4.8-10.8)
--- NOTE | 2024-12-10 03:02 | PTCARENOTE ---
Addendum entered by Shelly Wood RN 12/10/24 03:59:
IV Hydralazine ordered and given-- see MAR
Original Note:
Pt cleaned with CHG wipes, new gown, new sheets/blankets. BP was 187/61-- informed Meka Herman NP. Discussed being NPO. Pt verbalizes understanding.
[2024-12-10 03:08] LABS: APTT 79.9 Sec (23.4-35.0)
[2024-12-10 03:19] LABS: Blood Urea Nitrogen 10 mg/dl (7-17); Carbon Dioxide 23 mmol/L (22-30); Chloride 113 mmol/L (98-107); Estimated Creatinine Clearance 52 ml/min; Glucose 82 mg/dl (70-99); Potassium 3.6 mmol/L (3.5-5.1); Sodium 139 mmol/L (135-145); eGFR > 60.00
[2024-12-10] MEDS: APRESOLINE 5 MG IV (03:34)
[2024-12-10] MEDS: HEPARIN 25000 UNITS/250 ML IV (06:01)
[2024-12-10] MEDS: COREG 25 MG PO ×2 (08:59→20:40)
[2024-12-10] MEDS: ZOLOFT 200 MG PO (08:59)
[2024-12-10] MEDS: ASPIR LOW (ENTERIC COATED) 81 MG PO (08:59)
[2024-12-10] MEDS: NORVASC 5 MG PO ×2 (09:00→11:00)
[2024-12-10 09:49] LABS: APTT 66.4 Sec (23.4-35.0)
--- NOTE | 2024-12-10 09:52 | W.PN.CARDCBS ---
Addendum entered and electronically signed by Jerel Montes MD 12/10/24 10:25:
I saw and examined the patient.
The BATTERY HAND or PA's note was reviewed and I agree with the note.
Comment: General: Well developed, well nourished in NAD.
Neck: Supple, no JVD, HJR, carotids +2 B/L, no bruits bilaterally.
Heart: Non displaced PMI, RRR, no murmurs, No S3, S4, no rubs.
Lungs: Scattered rhonchi
Extremities: No clubbing, cyanosis or edema bilaterally.
Neuro: Grossly nonfocal, awake, alert and oriented x3.
Coronary catheterization unremarkable on 12/09. Remains hypertensive. Will increase Norvasc. Vascular surgery considering right renal artery intervention and is for angiogram today.
Original Note:
Today's Communication / Plan
-
For angiogram and possible right renal artery intervention today per vascular
Continue aspirin, IV heparin, statin, Coreg, Norvasc
Impression / Plan
-
Primary care: Dr. Jacinta Brown
Adjunct Phlebotomy Instructor: Dr. Bro Jones
Impression:
Chest pain with elevated troponins, non-STEMI, peak troponin 0.490
Moderate RCA stenosis by cath 12/09/24
New diagnosis, symptomatic paroxysmal atrial fibrillation spontaneously converted to sinus rhythm 12/06/2024
B/L renal artery stenosis, R>L
Hypertension
Hyperlipidemia not previously on medical therapy
PAD with claudication
Right carotid bruit
COPD
Tobacco abuse disorder currently 1 pack a day
Macrocytic anemia
Neurogenic claudication
Degenerative disc disease
ECHO 12/09/24: EF 60%, MAC, mitral sclerosis, trace MR, mildly dilated LA, trace AR
Plan:
- She presented with abdominal pain and chest discomfort in the setting of rapid atrial fibrillation
- Troponin peaked at 0.49
- Echo with normal EF, no significant valvular disease
- Underwent cardiac catheterization 12/09/2024 with moderate 40 to 50% RCA stenosis, no intervention required
- Blood pressures noted to be elevated, she underwent renal artery duplex which showed bilateral renal artery stenosis right greater than left. She is planned for angiogram with possible right renal artery intervention today with vascular
- Continue IV heparin, aspirin
- Lipitor new this admission
- Ongoing attempts at blood pressure control. Nephrology also following. Currently on Coreg 25 mg twice daily and Norvasc 5 mg daily. Continue uptitration as needed
- She spontaneously converted to sinus rhythm and remains in sinus rhythm at this time on review of telemetry. Post procedures, we will plan to transition IV heparin to DOAC
- Will need continued outpatient follow-up with vascular given PAD with abnormal ABIs
- Carotid ultrasound with suspected less than 50% stenosis bilaterally
- Tobacco cessation
Progress Note - Adjunct Phlebotomy Instructor
Subjective
Date of Service: December 10, 2024
Denies chest pain, shortness of breath. Reports is hungry
Objective
Labs:
12/10/24 02:39
12/10/24 02:39
Labs
Hgb 8.0 g/dL (12.0-16.0) L 12/10/24 02:39
Hct 23.7 % (37.0-47.0) L 12/10/24 02:39
Plt Count 401 10^3/uL (130-400) H 12/10/24 02:39
APTT 79.9 Sec (23.4-35.0) H 12/10/24 02:39
Sodium 139 mmol/L (135-145) 12/10/24 02:39
Potassium 3.6 mmol/L (3.5-5.1) 12/10/24 02:39
BUN 10 mg/dl (7-17) 12/10/24 02:39
Creatinine 0.8 mg/dL (0.6-1.0) 12/10/24 02:39
Glucose 82 mg/dl (70-99) 12/10/24 02:39
Troponins
12/07/24 12/07/24 12/08/24
11:06 18:21 08:05
Troponin I 0.490 H* 0.347 H* D 0.233 H*
Vital Signs and I&O:
Vital Signs
Temp Pulse Resp BP Pulse Ox
98.2 F 65 16 172/57 94
12/10/24 08:28 12/10/24 09:00 12/10/24 08:28 12/10/24 08:26 12/10/24 08:28
Vital Signs
Temp Pulse Resp BP Pulse Ox
98.2 F 65 16 172/57 94
12/10/24 08:28 12/10/24 09:00 12/10/24 08:28 12/10/24 08:26 12/10/24 08:28
Intake & Output
12/08/24 12/09/24 12/10/24 12/11/24
07:59 07:59 07:59 07:59
Intake Total 1979 1215 / 1215 1820 / 1820
Output Total 900 / 900 400 / 400
Balance 19795 / 1215 920 / 920 -400 / -400
Physical Exam
Physical Exam
GEN: No distress, awake, alert, oriented x3
HEENT: supple, anicteric, mmm, EOMI
LUNGS: CTA bilaterally, no wheezes/rales
CV: Reg, S1/S2, no murmur
ABD: soft, BS+, NT/ND
EXT: No cyanosis, clubbing, edema
NEURO: Gross non-focal
SKIN: Warm, pink, dry. No rash. Right wrist site soft, clean dry and intact
--- NOTE | 2024-12-10 11:03 | PN.CDI ---
CDI
- -
CDI:
Physician Documentation Request
Admit Date: 12/06/24 20:59
Dear Doctor Joe,
Clinical Indicators:
Patient admitted with new onset AF, NSTEMI and renal artery stenosis.
Height: 5 ft 5 in
Weight: 108 lbs 7.4 oz
BMI: 18.0
12/09 note/assessment: BMI: 18.0 (underweight)
Please provide an associated diagnosis related to the abnormal BMI(< or = to 19), such as:
Underweight
BMI is not significant
Other, please specify
Use of terms such as suspected, likely, concern for, or probable (associated with a specific diagnosis that is being evaluated, monitored, or treated as if it exists) are acceptable and can be coded in the inpatient setting, when documented at the
time of discharge.
Thank you,
MOLLY Mariee RN
CDI Specialist
available via [facility] text
Please use your independent medical judgment in providing your response.
--- NOTE | 2024-12-10 12:07 | W.PN.NEPH.PH ---
Today's Communication / Plan
-
see plan
Assessment/Plan
-
Impression:
NENITA
Right Flank pain
Possible right renal infarct with bilateral BERT by CAT scan
New onset atrial fibrillation and/or atrial flutter with RVR
History of HTN
MDS
Anxiety depression
PAD
Plan:
noted renal duplex bilat RAD Rt worse, plan angio today per vascular
BP not at goal, Amlodipine increased dose per cards
expect to see some improvement of BP post procedure
[facility] on 12/09 mild CAD, no interventions needed
cont supportive care for right renal infarct-pain almost resolved
maintains good kidney function so far cr 0.8
Continue heparin drip in setting of atrial dysrhythmia
- Urinalysis noted 1+ blood and 3+ albumin-need f/u lab
d/w pt
-
-
Date of Service: December 10, 2024
CC / HPI / ROS
-
Chief Complaint:
NENITA
Renal infarct
History of Present Illness:
Hemodynamically stable blood pressure running high
Creatinine stable at 0.8
[facility] on 12/09 mild CAD in RCA
Review of Systems:
Nonoliguric
No chest pain or shortness of breath
no flank pain
Labs
-
Labs:
WBC 7.1 10^3/uL (4.8-10.8) 12/10/24 02:39
RBC 2.17 10^6/uL (4.20-5.40) L 12/10/24 02:39
Hgb 8.0 g/dL (12.0-16.0) L 12/10/24 02:39
Hct 23.7 % (37.0-47.0) L 12/10/24 02:39
Plt Count 401 10^3/uL (130-400) H 12/10/24 02:39
Sodium 139 mmol/L (135-145) 12/10/24 02:39
Potassium 3.6 mmol/L (3.5-5.1) 12/10/24 02:39
Chloride 113 mmol/L (98-107) H 12/10/24 02:39
Carbon Dioxide 23 mmol/L (22-30) 12/10/24 02:39
BUN 10 mg/dl (7-17) 12/10/24 02:39
Creatinine 0.8 mg/dL (0.6-1.0) 12/10/24 02:39
eGFR > 60.00 12/10/24 02:39
Glucose 82 mg/dl (70-99) 12/10/24 02:39
Calcium 8.0 mg/dl (8.4-10.2) L 12/10/24 02:39
Albumin 3.4 g/dl (3.5-5.0) L 12/08/24 08:05
Physical Exam
-
Vital Signs:
Vital Signs
Temp Pulse Resp BP Pulse Ox
98 F 74 16 147/60 96
12/10/24 11:56 12/10/24 11:56 12/10/24 11:56 12/10/24 11:00 12/10/24 11:56
Cardiovascular:: Regular rate and rhythm
Respiratory:: Bilateral: CTA
Lung Excursion:: Normal
Abdomen:: Nontender and Soft
Extremity Edema:: None: Bilateral:
Lima Catheter: No
--- NOTE | 2024-12-10 13:47 | W.PN.HOSP.TC ---
Today's Communication/Plan
-
monitor vitals
see plan
Angio
cw IV heparin
Assessment / Plan
Assessment / Plan
pt is a 69 year old female
New onset Atrial Fibrillation/Flutter with Rapid Ventricular Response ----apprec cards--cont IV heparin--now in normal sinus rhythm, echo 12/09 with EF 60%.
NSTEMI--from rapid rate in pt with known PAD--troponins peaked at 0.49--cont IV heparin--apprec cards
[facility] on 12/09 mild CAD, no interventions needed
Renal Artery Stenosis/Possible Renal Infarct with NENITA--likely embolic from new onset afib--CT scan done during ED visit 12/05 showed decreased perfusion to the R kidney compared to the L--Risk factors for ASCVD as well including hypertension,
ongoing smoking--cont IV heparin--apprec renal input--MRI with renal artery stenosis, vascular surgery following. plan for Angio 12/09
Essential Hypertension--cw amlodipine
MDS with Leukocytosis--Patient has macrocytic anemia due to MDS. Does not appear to have chronic leukocytosis--Hgb is stable--Leukocytosis likely stress response due to renal injury/infarct - follow for improvement.
Anxiety/Depression- Stable. Continue sertraline.
Tobacco Use Disorder- -Affects all aspects of care-- Encourage smoking cessation - though patient does not seem motivated to quit.
DVT Prophylaxis: On IV Heparin
Code Status: Full
General: Well Developed, Well Nourished and No Apparent Distress
HEENT: Normocephalic and Atraumatic
Respiratory: Clear to Auscultation; Negative Wheezes or Rhonchi
Cardiac: Irregular Rhythm; Negative Murmur
GI: Soft, Nontender, Nondistended and Normal Bowel Sounds
Musculoskeletal: No Clubbing, No Cyanosis and No Edema
Skin: Warm
Neuro: Awake
Anticipated Discharge: > 48 hours
Subjective/Interval History
-
Date of Service: December 10, 2024
denies nausea
Objective Data
-
Labs:
Laboratory Results
12/10/24 12/10/24 12/10/24
02:39 09:32 16:00
WBC 7.1
Hgb 8.0 L
Hct 23.7 L
Plt Count 401 H
APTT 79.9 H 66.4 H Pending
Sodium 139
Potassium 3.6
Chloride 113 H
Carbon Dioxide 23
BUN 10
Creatinine 0.8
Glucose 82
Calcium 8.0 L
Vital Signs:
Vital Signs
Temp Pulse Resp BP Pulse Ox
98 F 74 16 147/60 96
12/10/24 11:56 12/10/24 11:56 12/10/24 11:56 12/10/24 11:00 12/10/24 11:56
I&O
12/09/24 12/10/24 12/11/24
06:59 06:59 06:59
Intake Total 1215 / 1215 1820 / 1820
Output Total 900 / 900 400 / 400
Balance 1215 / 1215 920 / 920 -400 / -400
--- NOTE | 2024-12-10 13:50 | PTCARENOTE ---
CHG wipes, gown changed. Patient AO x3, comfortable, denies pain. NSR on telemetry BP 147/60. NPO since midnight
--- NOTE | 2024-12-10 16:22 | PTCARENOTE ---
Report called to the ballistics laboratory gunsmith, voided in the bathroom
--- NOTE | 2024-12-10 16:51 | W.SUR.PREOP ---
Pre-Operative Surgical Note
-
I have examined this patient prior to the performance of the scheduled procedure.
The patient's condition is unchanged from the time of the current History and
Physical and the patient is able to undergo the scheduled procedure.
--- NOTE | 2024-12-10 17:00 | PTCARENOTE ---
Patient sent to the OR, heparin stopped marketing communications specialist
--- NOTE | 2024-12-10 19:21 | W.IMMPOSTOP ---
Surgical Immed Post Op Note
-
Primary Surgeon: Janie
Assisting Surgeon: Amaya
Pre-op Diagnosis: Right renal infarcts, bilat renal artery stenosis
Post-op Diagnosis: same
Procedure Performed: left brachial artery cutdown for endovascular intervention; bilateral renal artery bellman captain/stent (6 x 22 iCast bilat)
Anesthesia Type: Sedation/local
Specimen / Cultures: None
Estimated Blood Loss: 20 cc
Complications: None
Operative Findings: Successful bilat renal artery stenting. widely patent renal arteries on completion imaging
[2024-12-10] MEDS: NSS 1000 IV (20:39)
[2024-12-10] MEDS: LIPITOR 20 MG PO (20:40)
[2024-12-10] MEDS: PLAVIX 150 MG PO (20:40)
--- NOTE | 2024-12-10 23:38 | PTCARENOTE ---
Received pt from PACU @ 2029. AAOx3, BP 146/66, other VSS-- NSR on monitor. Left upper extremity clean, dry, and intact. No swelling, little ecchymosis, denies pain. Bilateral lower extremities-- positive pedal pulses, pink, warm to touch, 2< cap
refill. Discussed keeping arm straight and bedrest for 6H. Pt verbalizes understanding. NSS running @ 80 mL/hr through right IV. Denies sore throat. 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 No swelling, ecchymosis, and is soft to
touch. Discussed plan for evening. Pt verbalizes understanding. Call haynes within reach.
[2024-12-11 05:48] VITALS: BP 169/68
[2024-12-11 05:50] VITALS: BP 169/68
[2024-12-11] MEDS: HEPARIN 25000 UNITS/250 ML IV (05:51)
[2024-12-11 07:01] VITALS: BP 177/57
[2024-12-11 07:21] LABS: % Basophils 1.2 % (0-2); % Eosinophils 2.3 % (0-6); % Immature Granulocytes 0.8 % (0-0.5); % Lymphocytes 17.1 % (20.5-51.1); % Monocytes 8.7 % (1.7-9.3); % Neutrophils 69.9 % (42.2-75.2); Absolute Basophils 0.1 10^3/uL (0-0.2); Absolute Eosinophils 0.1 10^3/uL (0-0.7); Absolute Immature Granulocytes 0.1 10^3/uL (0-0.05); Absolute Monocytes 0.5 10^3/uL (0.1-0.6); Absolute Neutrophils 4.2 10^3/uL (1.4-6.5); Hematocrit 24.5 % (37.0-47.0); Hemoglobin 8.3 g/dL (12.0-16.0); Mean Corp Hgb Conc. 33.9 g/dL (33.0-37.0); Mean Corpuscular Hgb 35.9 pg (27.0-31.0); Mean Corpuscular Volume 106.1 fL (81.0-99.0); Mean Platelet Volume 10.4 fL (7.4-10.4); Nucleated Red Blood Cells % 0.7 %; Platelet Count 465 10^3/uL (130-400); Red Blood Cell Count 2.31 10^6/uL (4.20-5.40); Red Cell Dist. Width 20.9 % (11.5-14.5); White Blood Cell Count 6.1 10^3/uL (4.8-10.8)
[2024-12-11 07:31] LABS: APTT 69.6 Sec (23.4-35.0)
[2024-12-11 07:39] LABS: Blood Urea Nitrogen 13 mg/dl (7-17); Calcium 8.4 mg/dl (8.4-10.2); Carbon Dioxide 23 mmol/L (22-30); Chloride 111 mmol/L (98-107); Estimated Creatinine Clearance 52 ml/min; Glucose 91 mg/dl (70-99); Potassium 4.1 mmol/L (3.5-5.1); Sodium 139 mmol/L (135-145); eGFR > 60.00
[2024-12-11] MEDS: PLAVIX 75 MG PO (08:15)
[2024-12-11] MEDS: ZOLOFT 200 MG PO (08:15)
[2024-12-11] MEDS: COREG 25 MG PO (08:15)
[2024-12-11] MEDS: NORVASC 10 MG PO (08:15)
[2024-12-11] MEDS: ASPIR LOW (ENTERIC COATED) 81 MG PO (08:15)
--- NOTE | 2024-12-11 08:59 | W.PN.VS ---
Today's Communication / Plan
-
Patient seen and examined at bedside with Jorge Montez M.D., below plan reviewed with attending.
Assessment/Plan
-
Assessment: 69-year-old female POD #1 Left brachial artery cutdown for endovascular intervention; bilateral renal artery lpta/stent (6 x 22 iCast bilat)
Plan:
Please continue antiplatelet of Plavix 75 mg p.o. daily along with anticoagulation of cardiology/primary teams choosing
While inpatient continue neurovascular checks to left upper extremity
Follow-up placed in discharge instructions
Cleared for discharge from a vascular surgical perspective
We will sign off please call with questions or concerns
Subjective Data
-
Date of Service: December 11, 2024
Patient seen and examined at bedside, offers no complaints. Denies nausea, vomiting, fever, and chills. Reports well-managed postoperative pain at left brachial cutdown site.
Objective Data
-
Vital Signs
Temp Pulse Resp BP Pulse Ox
98.3 F 80 16 177/57 95
12/11/24 07:12 12/11/24 08:00 12/11/24 07:12 12/11/24 07:01 12/11/24 07:12
Intake and Output
12/10/24 12/11/24 12/12/24
06:59 06:59 06:59
Intake Total 1820 / 1820 100 / 100
Output Total 900 / 900 400 / 400
Balance 920 / 920 -300 / -300
Intake:
Oral fluids 960 / 960
IV fluids (Total) 860 / 860 100 / 100
NSS 860 / 860 100 / 100
Output:
Urine, Voided 900 / 900 400 / 400
Other:
Number of approximated MODERATE 1 2
amounts of urine
Number of approximated LARGE 1
amounts of urine
Lab Results
12/11/24 07:10
05/21/25 07:10
Calcium 8.4 mg/dl (8.4-10.2) 12/11/24 07:10
Magnesium 2.0 mg/dl (1.6-2.3) 12/09/24 04:17
Total Bilirubin 0.7 mg/dl (0.2-1.3) 12/08/24 08:05
Direct Bilirubin 0.1 mg/dl (0.0-0.4) 12/07/24 04:47
AST 19 U/L (14-36) 12/08/24 08:05
ALT 23 U/L (0-35) 12/08/24 08:05
Alkaline Phosphatase 70 U/L (38-126) 12/08/24 08:05
Total Protein 5.8 g/dl (6.3-8.2) L 12/08/24 08:05
Albumin 3.4 g/dl (3.5-5.0) L 12/08/24 08:05
Physical Exam
-
No apparent distress, resting in bed comfortably
No tachycardia
No dyspnea room air
Left upper extremity brachial cutdown site CDI, suture line well-approximated, no evidence of hematoma, all surrounding compartments soft
Abdomen flat, nontender, nondistended
--- NOTE | 2024-12-11 09:16 | OR.RPT ---
Operative Report
Operative Report
Date of Operation: 12/10/2024
Pre Op Diagnosis:
1. High-grade bilateral renal artery stenosis
2. Right renal infarcts
3. NSTEMI
4. New onset atrial fibrillation
5. Extensive calcified aortoiliac occlusive disease
6. Extensive calcified mesenteric artery occlusive disease
7. Chronic smoking history
Post Op Diagnosis:
1. High-grade bilateral renal artery stenosis
2. Right renal infarcts
3. NSTEMI
4. New onset atrial fibrillation
5. Extensive calcified aortoiliac occlusive disease
6. Extensive calcified mesenteric artery occlusive disease
7. Chronic smoking history
Procedure:
1.) Cutdown and exposure of left brachial artery for endovascular intervention with primary repair
2.) Balloon angioplasty and stenting of right renal artery stenosis (6 mm x 22 mm iCAST stent postdilated with 6 mm x 20 mm [employer] balloon)
3.) Balloon angioplasty and stenting of left renal artery stenosis (6 mm x 22 mm iCAST stent postdilated with 6 mm x 20 mm [employer] balloon)
4.) Diagnostic aortogram
5.) Selective catheterization of bilateral renal arteries
6.) Bilateral renal arteriograms
Surgeon: Stephen Lima III, MD
Staple Side Laster: Michael Conde MD PGY1
Anesthesia: Sedation with local
Fluoroscopy:
24.7 min
389 mGy
56.93 gy.cm2
Complications: None
Estimated Blood Loss: Less than 20 cc
History and Indications for Procedure: 69-year-old female with chronic extensive smoking history and severe calcified aortoiliac and mesenteric occlusive disease. She presented with right flank pain along with an NSTEMI. Cross-sectional imaging
demonstrated bilateral high-grade calcified renal artery stenoses bilaterally and evidence of right renal infarcts along with asymmetric perfusion to the right kidney. Given this constellation of findings my recommendation was for endovascular
intervention for the renal artery stenoses.
Procedure in Detail: Demetria Banks was correctly identified and placed supine on the operating table. After adequate induction of anesthesia the left arm was prepped and draped in the usual sterile fashion. A timeout was performed with the
nursing and anesthesia staff confirming the patient's identity as well as the nature and laterality of the procedure.
An incision was made over the brachial pulse just proximal to the elbow in the left arm. Electrocautery and sharp dissection were used to expose the left brachial artery. Proximal and distal control was obtained with vessel loops. Under direct
visualization the left brachial artery was punctured in a retrograde fashion with a micropuncture needle. I then upsized to a 5 [place] sheath over a Bentson wire. The patient was systemically heparinized at this point. The Bentson wire was
navigated retrograde through the brachial artery, axillary artery, subclavian artery and into the aortic arch. Using a Cobra catheter and Bentson wire we navigated the wire to the distal arch and into the descending thoracic aorta. The wire was
advanced through to the abdominal aorta and a pigtail catheter was placed. A diagnostic aortogram was performed which demonstrated the following:
Patent aorta
High-grade calcified renal artery origin stenoses bilaterally
Delayed filling of the superior mesenteric artery
Patent celiac artery
Patent inferior mesenteric artery with extensive collateralization identified consistent with more proximal mesenteric occlusive disease
ENDOVASCULAR INTERVENTION: Exchanged out for a 6 Fr 70 cm sheath over a Storq wire. Using a Walker catheter and a Glidewire under roadmap guidance we were able to select the right renal artery successfully. The Walker catheter was advanced through the
proximal stenosis. A renal arteriogram was performed confirming proper position in the right renal artery. A Real wire was then placed. The renal artery stenosis at the origin was predilated with a 4 mm angioplasty balloon. Following this a 6
mm x 22 mm iCAST stent was positioned in the desired location in the proximal right renal artery and deployed. The stent was then postdilated with a 6 mm x 20 mm [employer] balloon with a nice result. Subsequent arteriogram demonstrated a
widely patent right renal artery with no evidence of filling defects or dissection. Brisk flow through the right renal artery. Minimal residual waist in the midportion of the stent.
I then focused my attention on the left renal artery. Similarly, using a Dix catheter and Glidewire under roadmap guidance we were able to select the left renal artery successfully. The Dix catheter was advanced through the proximal stenosis. A
renal arteriogram was then performed confirming proper position in the left renal artery. A Real wire was placed in the left renal artery. A 6 mm x 22 mm iCAST stent was then positioned in the desired location in the proximal left renal artery
and deployed. The stent was then postdilated again with a 6 mm x 20 mm [employer] balloon with a nice result. Subsequent arteriogram demonstrated a widely patent left renal artery with no evidence of filling defects or dissection. Brisk
flow was identified through the left renal artery. There was minimal residual waist in the midportion of the stent.
COMPLETION ARTERIOGRAM: Patent bilateral renal artery stents and renal arteries bilaterally.
Satisfied with this result we concluded the procedure. The sheath tip was pulled back into the left brachial artery. The sheath was pulled from the brachial artery. Brisk pulsatile bleeding from the proximal brachial artery was identified.
Backbleeding from the distal brachial artery was identified. The vessel loops were secured. The brachial artery puncture site was repaired primarily with 2 interrupted 7-0 Prolene sutures. The vessel loops were released. There was an excellent
pulse in the brachial artery proximal and distal to the suture line repair. The suture line was hemostatic. Hemostasis was achieved in the wound bed. The wound was irrigated with saline solution. The wound was then closed in multiple layers and
a sterile dressing was applied.
The patient tolerated the procedure well and was taken to the recovery area in stable condition.
Attestation: I was present and responsible for the entire procedure. Palpable radial pulse at the left wrist at the conclusion of the case.
Signed:
Stephen Lima III, MD
Vascular Surgery
[facility]
--- NOTE | 2024-12-11 10:14 | W.PN.CARDCBS ---
Addendum entered and electronically signed by Naila Tellez MD 12/11/24 10:32:
I saw and examined the patient.
The Fill Plant Operator's note was reviewed and I agree with the note.
Comment: General: Well developed, well nourished in NAD.
Heart: Non displaced PMI, RRR, no murmurs, No S3, S4, no rubs.
Lungs: Clear to auscultation bilaterally, no wheeze, rhonchi, rubs bilaterally,
Extremities: No clubbing, cyanosis or edema bilaterally.
Neuro: Grossly nonfocal, awake, alert
She did well overnight. Blood pressure is still elevated but antihypertensive regimen was just uptitrated. From a cardiac point of view she has mild coronary artery disease that will be medically managed.
Plan at this time:
Stable from a cardiac perspective to be discharged home on current medication. Would use hydralazine 25 mg as needed 3 times daily blood pressure greater than 150 mmHg systolic. I discussed with patient she has the ability to check her blood
pressure readings at home.
Blood pressure and outpatient will need to be followed carefully given antihypertensive treatment may need to be de-escalated status post bilateral renal artery stenosis intervention, 12/10/2024.
Aggressive treatment of cardiovascular risk factors.
We will arrange cardiac outpatient follow-up.
Original Note:
Today's Communication / Plan
-
s/p B/L renal artery stents 12/10
currently on asa, plavix, IV heparin. will need transition to DOAC when ok per vascular
continue coreg, norvasc. will add prn po hydralazine
will arrange OP cardiac follow up
Impression / Plan
-
Primary care: Dr. Jacinta Brown
Financial Assistant: Dr. Bro Jones
Impression:
Chest pain with elevated troponins, non-STEMI, peak troponin 0.490
Moderate RCA stenosis by cath 12/09/24
New diagnosis, symptomatic paroxysmal atrial fibrillation spontaneously converted to sinus rhythm 12/06/2024
B/L renal artery stenosis, R>L
Hypertension
Hyperlipidemia not previously on medical therapy
PAD with claudication
Right carotid bruit
COPD
Tobacco abuse disorder currently 1 pack a day
Macrocytic anemia
Neurogenic claudication
Degenerative disc disease
ECHO 12/09/24: EF 60%, MAC, mitral sclerosis, trace MR, mildly dilated LA, trace AR
Plan:
- She presented with abdominal pain and chest discomfort in the setting of rapid atrial fibrillation
- Troponin peaked at 0.49
- Echo with normal EF, no significant valvular disease
- Underwent cardiac catheterization 12/09/2024 with moderate 40 to 50% RCA stenosis, no intervention required
- Blood pressures noted to be elevated, she underwent renal artery duplex which showed bilateral renal artery stenosis right greater than left. s/p B/L renal artery stenting 12/10
- Currently on asa, plavix, IV heparin. defer regimen to vascular given recent renal stents
- Lipitor new this admission
- Ongoing attempts at blood pressure control. Nephrology also following. Currently on Coreg 25 mg twice daily and Norvasc 10mg daily, continue. will order PRN po hydralazine 25mg TID for SBP>160
- She spontaneously converted to sinus rhythm and remains in sinus rhythm on review of telemetry overnight. DOAC when ok per vascular
- Will need continued outpatient follow-up with vascular given PAD with abnormal ABIs
- Carotid ultrasound with suspected less than 50% stenosis bilaterally
- Tobacco cessation
- will arrange OP cardiac follow up
Progress Note - Financial Assistant
Subjective
Date of Service: December 11, 2024
no complaints. eager for DC
Objective
Labs:
12/11/24 07:10
12/11/24 07:10
Labs
Hgb 8.3 g/dL (12.0-16.0) L 12/11/24 07:10
Hct 24.5 % (37.0-47.0) L 12/11/24 07:10
Plt Count 465 10^3/uL (130-400) H 12/11/24 07:10
APTT 69.6 Sec (23.4-35.0) H 12/11/24 07:10
Sodium 139 mmol/L (135-145) 12/11/24 07:10
Potassium 4.1 mmol/L (3.5-5.1) 12/11/24 07:10
BUN 13 mg/dl (7-17) 12/11/24 07:10
Creatinine 0.8 mg/dL (0.6-1.0) 12/11/24 07:10
Glucose 91 mg/dl (70-99) 12/11/24 07:10
Vital Signs and I&O:
Vital Signs
Temp Pulse Resp BP Pulse Ox
98.3 F 80 16 177/57 95
12/11/24 07:12 12/11/24 08:00 12/11/24 07:12 12/11/24 07:01 12/11/24 07:30
Vital Signs
Temp Pulse Resp BP Pulse Ox
98.3 F 80 16 177/57 95
12/11/24 07:12 12/11/24 08:00 12/11/24 07:12 12/11/24 07:01 12/11/24 07:30
Intake & Output
12/09/24 12/10/24 12/11/24 12/12/24
07:59 07:59 07:59 07:59
Intake Total 1215 / 1215 1820 / 1820 500 / 500
Output Total 900 / 900 400 / 400
Balance 1215 / 1215 920 / 920 100 / 100
Physical Exam
Physical Exam
GEN: No distress, awake, alert, oriented x3
HEENT: supple, anicteric, mmm, EOMI
LUNGS: CTA bilaterally, no wheezes/rales
CV: Reg, S1/S2, no murmur
ABD: soft, BS+, NT/ND
EXT: No cyanosis, clubbing, edema
NEURO: Gross non-focal
SKIN: Warm, pink, dry. No rash.
--- NOTE | 2024-12-11 11:34 | W.PN.NEPH.PH ---
Today's Communication / Plan
-
BMP tomorrow
Assessment/Plan
-
Impression:
NENITA
Right Flank pain
Possible right renal infarct with bilateral BERT by CAT scan
New onset atrial fibrillation and/or atrial flutter with RVR
History of HTN
MDS
Anxiety depression
PAD
Plan:
for eliquis for PAfib
has PCP appt tomorrow per patient
BMP tomorrow given contrast exposure
continue BP meds as is
needs to check BP daily at least
-
-
Date of Service: December 11, 2024
CC / HPI / ROS
-
Chief Complaint:
NENITA
HTN
History of Present Illness:
Hemodynamically stable blood pressure running high
Creatinine stable
LHC on 12/09 mild CAD in RCA
no Afib
s/p bilateral BERT stenting 12/11
Review of Systems:
Nonoliguric
No chest pain or shortness of breath
no flank pain
Labs
-
Labs:
WBC 6.1 10^3/uL (4.8-10.8) 12/11/24 07:10
RBC 2.31 10^6/uL (4.20-5.40) L 12/11/24 07:10
Hgb 8.3 g/dL (12.0-16.0) L 12/11/24 07:10
Hct 24.5 % (37.0-47.0) L 12/11/24 07:10
Plt Count 465 10^3/uL (130-400) H 12/11/24 07:10
Sodium 139 mmol/L (135-145) 12/11/24 07:10
Potassium 4.1 mmol/L (3.5-5.1) 12/11/24 07:10
Chloride 111 mmol/L (98-107) H 12/11/24 07:10
Carbon Dioxide 23 mmol/L (22-30) 12/11/24 07:10
BUN 13 mg/dl (7-17) 12/11/24 07:10
Creatinine 0.8 mg/dL (0.6-1.0) 12/11/24 07:10
eGFR > 60.00 12/11/24 07:10
Glucose 91 mg/dl (70-99) 12/11/24 07:10
Calcium 8.4 mg/dl (8.4-10.2) 12/11/24 07:10
Albumin 3.4 g/dl (3.5-5.0) L 12/08/24 08:05
Physical Exam
-
Vital Signs:
Vital Signs
Temp Pulse Resp BP Pulse Ox
98.3 F 80 16 177/57 95
12/11/24 07:12 12/11/24 08:00 12/11/24 07:12 12/11/24 07:01 12/11/24 07:30
Cardiovascular:: Regular rate and rhythm
Respiratory:: Bilateral: CTA
Lung Excursion:: Normal
Abdomen:: Nontender and Soft
Bowel Sounds:: Normal
Extremity Edema:: None: Bilateral:
[2024-12-11 12:02] VITALS: BP 165/57
[2024-12-11] MEDS: ELIQUIS 5 MG PO (12:25)
[2024-12-11] MEDS: APRESOLINE 25 MG PO (12:25)
--- NOTE | 2024-12-11 12:41 | W.PN.HOSP.TC ---
Addendum entered and electronically signed by Gordon Diaz MD 12/11/24 12:51:
Discussed with vascular surgery, patient does not need aspirin on discharge. Will discharge on Plavix and Eliquis
Original Note:
Today's Communication/Plan
-
Monitor vital signs see plan
Discharge today on Eliquis and Plavix
Time of discharge 39 minutes
Assessment / Plan
Assessment / Plan
pt is a 69 year old female
New onset Atrial Fibrillation/Flutter with Rapid Ventricular Response ----apprec cards--switch to eliquis--now in normal sinus rhythm, echo 12/09 with EF 60%.
NSTEMI--from rapid rate in pt with known PAD--troponins peaked at 0.49--apprec cards
LHC on 12/09 mild CAD, no interventions needed
Renal Artery Stenosis/Possible Renal Infarct with NENITA--likely embolic from new onset afib--CT scan done during ED visit 12/05 showed decreased perfusion to the R kidney compared to the L--Risk factors for ASCVD as well including hypertension,
ongoing smoking--cont IV heparin--apprec renal input--MRI with renal artery stenosis, vascular surgery following. s/p POD #1 Left brachial artery cutdown for endovascular intervention; bilateral renal artery ship's captain/stent. now on plavix. Discussed
with cardiology and vascular surgery, continue with Plavix and Eliquis. Patient can be discharged from cardiology, vascular and nephrology standpoint
Patient is following up with PCP tomorrow will do BMP to check for creatinine after contrast
Essential Hypertension--cw amlodipine,coreg,hydralazine prn on dc
MDS with Leukocytosis--Patient has macrocytic anemia due to MDS. Does not appear to have chronic leukocytosis--Hgb is stable--Leukocytosis likely stress response due to renal injury/infarct - follow for improvement.
Anxiety/Depression- Stable. Continue sertraline.
Tobacco Use Disorder- -Affects all aspects of care-- Encourage smoking cessation - though patient does not seem motivated to quit.
Underweight
DVT Prophylaxis: eliquis
Code Status: Full
General: Well Developed, Well Nourished and No Apparent Distress
HEENT: Normocephalic and Atraumatic
Respiratory: Clear to Auscultation; Negative Wheezes or Rhonchi
Cardiac: Irregular Rhythm; Negative Murmur
GI: Soft, Nontender, Nondistended and Normal Bowel Sounds
Musculoskeletal: No Clubbing, No Cyanosis and No Edema
Skin: Warm
Neuro: Awake
Anticipated Discharge: Today
Subjective/Interval History
-
Date of Service: December 11, 2024
denies pain
Objective Data
-
Labs:
Laboratory Results
12/11/24 12/11/24
07:10 13:30
WBC 6.1
Hgb 8.3 L
Hct 24.5 L
Plt Count 465 H
APTT 69.6 H Pending
Sodium 139
Potassium 4.1
Chloride 111 H
Carbon Dioxide 23
BUN 13
Creatinine 0.8
Glucose 91
Calcium 8.4
Vital Signs:
Vital Signs
Temp Pulse Resp BP Pulse Ox
98.3 F 80 16 165/57 95
12/11/24 07:12 12/11/24 08:00 12/11/24 07:12 12/11/24 12:25 12/11/24 07:30
I&O
12/10/24 12/11/24 12/12/24
06:59 06:59 06:59
Intake Total 1820 / 1820 100 / 100 400 / 400
Output Total 900 / 900 400 / 400
Balance 920 / 920 -300 / -300 400 / 400
--- NOTE | 2024-12-11 12:51 | W.DCSUMMARY ---
Discharge Summary
Discharge Data
Date of Admission: 12/06/24
Date of Discharge: 12/11/24
-
Pending Results: No
Hospital Course
69-year-old female with past medical history of myelodysplastic syndrome, essential hypertension, anxiety/depression, tobacco use disorder came to the hospital with new onset atrial fibrillation with rapid ventricular rate. Patient was seen by
cardiology throughout hospitalization. Patient spontaneously converted to normal sinus rhythm and remained in normal sinus rhythm prior to discharge. Echocardiogram was done which showed EF of 60%. On this hospitalization patient also had
elevated troponin concerning for non-ST elevation myocardial infarction. Cardiology performed a left heart cath which showed mild CAD and no interventions were done. Patient was also found to have renal artery stenosis with possible right renal
infarct with acute kidney injury. Patient was seen by nephrology and vascular surgery throughout hospitalization. Vascular surgery did a left brachial artery cutdown for endovascular intervention with bilateral renal artery stent. Patient was
then put on Plavix. Per vascular surgery recommendation on discharge patient was on Plavix and Eliquis. Per renal recommendation patient instructed to get repeat BMP 12/12/2024 with primary care provider. Over time patient symptoms continue to
improve, and she was discharged home with instructions to follow-up with all her physicians outpatient.
Discharge Plan
-
Patient Disposition: Home (Routine Discharge)
Discharge Diagnosis/Procedures: New onset atrial fibrillation/flutter with rapid ventricular rate
Non-ST elevation myocardial infarction status post cardiac catheterization
Renal artery stenosis status post bilateral renal artery stents
Essential hypertension
Condition: Good
Diet: Low Cholesterol
Activity: No strenuous activity
Driving Restrictions: No driving for 1 week
Blood Work: BMP tomorrow with primary care provider
Stand Alone Forms: DC Instructions- Cath/EP Lab, Vascular Surg Discharge Instr
Referrals:
Dilip León DO [Active] -
Jacinta Brown MD [Family Provider] - in one day
Herminia Veliz PA-C [Specified Professional Personl] - 12/30/24 2:40 pm (Cardiology followup appointment)
Melony Vo CRNP [Specified Professional Personl] - 12/26/24 9:15 am (Vascular surgery follow-up)
Prescriptions:
New
carvedilol 25 mg Tablet
25 mg PO BID Qty: 60 0RF
atorvastatin 20 mg Tablet
20 mg PO QPM Qty: 30 0RF
hydralazine 25 mg Tablet
25 mg PO TID PRN (Reason: SBP>160) Qty: 60 0RF
clopidogrel 75 mg Tablet
75 mg PO DAILY Qty: 30 0RF
amlodipine 10 mg Tablet
10 mg PO DAILY Qty: 30 0RF
Eliquis 5 mg Tablet
5 mg PO BID Qty: 60 0RF
Continued
sertraline 100 mg Tablet
200 mg PO DAILY
Discontinued
carvedilol [Coreg] 12.5 mg Tablet
12.5 mg PO BID
amlodipine 5 mg tablet
5 mg PO QPM
Discharge Orders:
Discharge Patient (As Directed); Ordered 12/11/24
Ordered By: Gordon Diaz
Care Plan Goals
Care Plan Goals:
Problem: Readiness for enhanced knowledge related to diagnosis and treatment plan
Goal: Understand your diagnosis and treatment plan needs, including medications if applicable.
Instructions: Know your diagnosis, underlying causes and treatment plan options, including medications if applicable. Consult with your health care team to learn about your diagnosis and treatment plan, including medications if applicable.
Discharge Date and Time
Discharge Date/Time: 12/11/24 13:45
Print Language: YAKUT
[2024-12-11 13:08] VITALS: BP 156/71
--- NOTE | 2024-12-11 13:45 | PTCARENOTE ---
Discharge instructions reviewed w/ pt and verbalizes understanding. Belongings collected and sent home w/ pt. IV and tele removed. Escorted via WC and staff assist to home.
== END 2024-12-11 13:45 | disposition home or self-care (01) | DRG 673 ==
LOC: IVU 20:59
PROVIDERS: Internal Medicine; Internal Medicine Interventional Cardiology; ADMITTING PHYSICIAN Hospitalist; ATTENDING PHYSICIAN Internal Medicine; CONSULT PHYSICIAN Internal Medicine Cardiovascular Disease; CONSULT PHYSICIAN Specialist; CONSULT PHYSICIAN Surgery Vascular Surgery; EMERGENCY PHYSICIAN Emergency Medicine; FAMILY PHYSICIAN Family Medicine
PROC: 4A023N7 Measurement of Cardiac Sampling and Pressure, Left Heart, Percutaneous Approach (ICD-10-PCS; 2024-12-09)
PROC: B2111ZZ Fluoroscopy of Multiple Coronary Arteries using Low Osmolar Contrast (ICD-10-PCS; 2024-12-09)
PROC: B4101ZZ Fluoroscopy of Abdominal Aorta using Low Osmolar Contrast (ICD-10-PCS; 2024-12-10)
PROC: B4181ZZ Fluoroscopy of Bilateral Renal Arteries using Low Osmolar Contrast (ICD-10-PCS; 2024-12-10)
PROC: 04793DZ Dilation of Right Renal Artery with Intraluminal Device, Percutaneous Approach (ICD-10-PCS; 2024-12-10)
PROC: 047A3DZ Dilation of Left Renal Artery with Intraluminal Device, Percutaneous Approach (ICD-10-PCS; 2024-12-10)
DX: I70.1 Atherosclerosis of renal artery (principal); I21.4 Non-ST elevation (NSTEMI) myocardial infarction; I48.92 Unspecified atrial flutter; N17.9 Acute kidney failure, unspecified; K55.1 Chronic vascular disorders of intestine; Z68.1 Body mass index [BMI] 19.9 or less, adult; I48.0 Paroxysmal atrial fibrillation; I10 Essential (primary) hypertension; E78.2 Mixed hyperlipidemia; R63.6 Underweight; I70.0 Atherosclerosis of aorta; I25.10 Atherosclerotic heart disease of native coronary artery without angina pectoris; E86.1 Hypovolemia; I95.9 Hypotension, unspecified; F17.210 Nicotine dependence, cigarettes, uncomplicated; D46.9 Myelodysplastic syndrome, unspecified; D53.9 Nutritional anemia, unspecified; D63.0 Anemia in neoplastic disease; I73.9 Peripheral vascular disease, unspecified; F41.9 Anxiety disorder, unspecified; J44.9 Chronic obstructive pulmonary disease, unspecified; F32.A Depression, unspecified; M81.0 Age-related osteoporosis without current pathological fracture; R09.89 Other specified symptoms and signs involving the circulatory and respiratory systems; Z82.49 Family history of ischemic heart disease and other diseases of the circulatory system
CPT/HCPCS: 36252; 37236; 37237; 70450; 74177; 74185; 77063; 77067; 80048; 80053; 80061; 81003; 81015; 82248; 83615; 83690; 83735; 84439; 84443; 84484; 85025; 85027; 85730; 86850; 86900; 86901; 93005; 93306; 93458; 93880; 93922; 93925; 93975; 96361; 96365; 99152; 99153; 99284; 99406; A9585; C1725; C1769; C1874; C1894; Q9967

== ENCOUNTER 2025-01-13 10:28 | Outpatient (RCR) | payer MEDICARE, OTHER, SELFPAY ==
[2025-01-10 12:47] LABS: Hematocrit 24.2 % (37.0-47.0); Mean Corp Hgb Conc. 33.1 g/dL (33.0-37.0); Mean Platelet Volume 10.2 fL (7.4-10.4); Platelet Count 460 10^3/uL (130-400); Red Blood Cell Count 2.22 10^6/uL (4.20-5.40); Red Cell Dist. Width 24.8 % (11.5-14.5)
[2025-01-10 13:11] LABS: Iron 116 ug/dl (37-170); LDH 177 U/L (120-246)
[2025-01-10 13:20] LABS: Percent Saturation 45 % (20-50); Total Iron Binding Capacity 257 ug/dl (265-497)
[2025-01-10 14:06] LABS: Erythrocyte Sed Rate 67 mm/hour (0-20)
[2025-01-10 14:11] LABS: Folate 8.3 ng/ml (2.76-20); Vitamin B12 411 pg/ml (239-931)
[2025-01-10 15:02] LABS: % Basophils 1.1 % (0-2); % Eosinophils 1.3 % (0-6); % Immature Granulocytes 0.6 % (0-0.5); % Lymphocytes 21.2 % (20.5-51.1); % Monocytes 9.9 % (1.7-9.3); % Neutrophils 65.9 % (42.2-75.2); Absolute Basophils 0.1 10^3/uL (0-0.2); Absolute Eosinophils 0.1 10^3/uL (0-0.7); Absolute Immature Granulocytes 0.1 10^3/uL (0-0.05); Absolute Lymphocytes 1.9 10^3/uL (1.2-3.4); Absolute Monocytes 0.9 10^3/uL (0.1-0.6); Nucleated Red Blood Cells % 1.3 %
[2025-01-13 01:44] LABS: Haptoglobin 84 mg/dL (30-200)
[2025-01-13 10:40] VITALS: BP 126/57
[2025-01-13 10:56] VITALS: BP 126/57
[2025-01-13 11:14] VITALS: BP 140/52
[2025-01-13 12:50] VITALS: BP 153/55
== END 2025-01-20 23:59 | disposition home or self-care (01) ==
LOC: OID 10:28
PROVIDERS: ATTENDING PHYSICIAN Internal Medicine Hematology & Oncology; FAMILY PHYSICIAN Family Medicine
DX: D27.0 Benign neoplasm of right ovary (principal); D46.1 Refractory anemia with ring sideroblasts; D51.9 Vitamin B12 deficiency anemia, unspecified
CPT/HCPCS: 36430; 82607; 82728; 82746; 83010; 83540; 83550; 83615; 85025; 85045; 85652; 86850; 86880; 86900; 86901; 86920; P9016

== ENCOUNTER → 2025-01-22 08:16 | Outpatient (REF) | payer MEDICARE, OTHER, SELFPAY | LOC: RAD 08:16 | PROVIDERS: ATTENDING PHYSICIAN Registered Nurse; FAMILY PHYSICIAN Family Medicine | DX: I70.1 Atherosclerosis of renal artery (principal) | CPT/HCPCS: 93975 ==

== ENCOUNTER 2025-02-07 12:57 | Inpatient (IN) | payer MEDICARE, OTHER, SELFPAY ==
[2025-02-07] VITALS (9 sets, daily range): BP systolic 106–151; BP diastolic 35–67
[2025-02-07] MEDS: DILAUDID 0.25 MG IV ×2 (10:30→10:46)
[2025-02-07 10:40] LABS: Hematocrit 28.1 % (37.0-47.0); Hemoglobin 9.4 g/dL (12.0-16.0); Mean Corp Hgb Conc. 33.5 g/dL (33.0-37.0); Mean Corpuscular Volume 107.3 fL (81.0-99.0); Nucleated Red Blood Cells % 0.9 %; Platelet Count 457 10^3/uL (130-400); Red Cell Dist. Width 24.5 % (11.5-14.5)
[2025-02-07] MEDS: OFIRMEV 100 IV (10:46)
[2025-02-07 11:00] LABS: ALT (SGPT) 22 U/L (0-35); AST (SGOT) 25 U/L (14-36); Albumin 4.4 g/dl (3.5-5.0); Alkaline Phosphatase 75 U/L (38-126); Blood Urea Nitrogen 22 mg/dl (7-17); Calcium 9.0 mg/dl (8.4-10.2); Carbon Dioxide 21 mmol/L (22-30); Chloride 110 mmol/L (98-107); Glucose 122 mg/dl (70-99); Potassium 4.1 mmol/L (3.5-5.1); Sodium 138 mmol/L (135-145); Total Protein 7.0 g/dl (6.3-8.2); eGFR > 60.00
--- NOTE | 2025-02-07 11:00 | ED.GENMED ---
History of Present Illness
General
Chief Complaint: Musculo-Skeletal Complaint
Source: patient
Exam Limitations: none
Time Seen by Provider: 02/07/25 10:22
History of Present Illness
History of Present Illness:
Patient tripped and fell landing on her right hip. Unable to bear weight. No head injury or other complaint. Patient is anticoagulated. Patient somehow got here by private vehicle. Severe pain right hip.
Past History
Past History
ED Past Medical History: COPD and HTN
ED Past Surgical History: Gynecological (Hysterectomy) and Orthopedic
Social History
Tobacco: Former smoker
Alcohol: None
Drug: None
Living: with family
Employment: Retired
Phy Exam
Physical Exam
Physical Exam:
TRAUMA EXAM:
VITAL SIGNS: Vital signs reviewed, cooperative
DISTRESS: No active disease
EYES: Pupils reactive, no orbital trauma
NOSE: No deformity or epistaxis
FACE AND SCALP: No scalp or facial trauma, external canals no blood
NECK: Supple nontender
BACK: Back nontender, pelvis stable to compression
RESPIRATORY: No distress, breath sounds normal, no tender chest wall
CARDIAC: No murmur, pulses equal and strong
ABDOMEN: Soft nontender bowel sounds normal
SKIN: Skin intact no bleeding, color normal
EXTREMITIES: Shortening right leg. Severe pain with rotation of the hip. All other extremities negative
NEUROLOGICAL: Alert, oriented, no motor deficits
PSYCH: Mood affect normal
Course
Orders/Labs/Results
Orders:
Orders
02/07/25 10:04
Complete Blood Count/With Diff Urgent
Comprehensive Metabolic Panel Urgent
02/07/25 10:08
CR Pelvis - 1 Or 2 Views Urgent
Comment:
Reason For Exam: pain after fall
Femur, Right 2 View [CR Femur - Right Min 2 Vw] Urgent
Comment:
Reason For Exam: pain after fall
02/07/25 10:26
CT Head W/o Iv Contrast Urgent
Comment:
Reason For Exam: Fall/anticoagulated
Cardiac Monitoring- Treatment ONCE
HYDROmorphone [Dilaudid] 0.25 mg IV NOW STA
02/07/25 10:40
Acetaminophen 1000MG/100Ml [Ofirmev] 1,000 mg in 100 ml IV ONCE
Acetaminophen IV Indication:: ED Narcotic Naive Pt-ONCE
HYDROmorphone [Dilaudid] 0.25 mg IV NOW STA
02/07/25 11:58
Type And Crossmatch [Type+Screen] Urgent
02/07/25 12:21
Admit/Transfer Patient As Directed
Co-Sign Provider:
Level of Care: Inpatient admission
Assign to:: Telemetry
Physician / Group: [email or web address]
Diagnosis: acute R prox Fx
Reason for Telemetry: Arrhythmia
Date to Stop Telemetry: 02/10/25
Time to Stop Telemetry: 11:00
Reason for Hospitalization: acute R prox Fx
Expected length of stay greater than two midnights?: Yes
ELOS- Estimated Length of Stay in days: 3
I certify the patient meets the requirements for IP care: Yes
02/07/25 12:24
Code Status As Directed
Resuscitation Status: Full Code
02/10/25 11:00
DC Protocol for Telemetry ONCE
Abnormal Lab Results
02/07/25
10:04
WBC 18.1 H 10^3/uL
(4.8-10.8)
RBC 2.62 L 10^6/uL
(4.20-5.40)
Hgb 9.4 L g/dL
(12.0-16.0)
Hct 28.1 L %
(37.0-47.0)
MCV 107.3 H fL
(81.0-99.0)
MCH 35.9 H pg
(27.0-31.0)
RDW 24.5 H %
(11.5-14.5)
Plt Count 457 H 10^3/uL
(130-400)
MPV 10.9 H fL
(7.4-10.4)
Abs Immat Gran (auto) 0.2 H 10^3/uL
(0-0.05)
Absolute Neuts (auto) 15.5 H 10^3/uL
(1.4-6.5)
Absolute Lymphs (auto) 1.0 L 10^3/uL
(1.2-3.4)
Absolute Monos (auto) 1.1 H 10^3/uL
(0.1-0.6)
Immature Gran % 0.9 H %
(0-0.5)
Neutrophils % 86.0 H %
(42.2-75.2)
Lymphocytes % 5.8 L %
(20.5-51.1)
Chloride 110 H mmol/L
(98-107)
Carbon Dioxide 21 L mmol/L
(22-30)
BUN 22 H mg/dl
(7-17)
Glucose 122 H mg/dl
(70-99)
02/07/25 10:04
02/07/25 10:04
Vital Signs
Initial and Last Documented VS:
Initial Vital Signs
Temp Pulse Resp BP Pulse Ox
97.5 F 58 18 148/57 97
02/07/25 09:42 02/07/25 09:42 02/07/25 09:42 02/07/25 09:42 02/07/25 09:42
Last Documented Vital Signs
Temp Pulse Resp BP Pulse Ox
97.5 F 54 18 123/49 97
02/07/25 09:42 02/07/25 13:00 02/07/25 12:27 02/07/25 13:00 02/07/25 13:00
MDM/Problems Addressed
Differential Diagnosis Includes:
Highly likely right hip fracture. No signs of other trauma. However with mechanism anticoagulation will also CT her head. Pain management.
*Radiology
Radiology exam reviewed: preliminary read by ED provider (Impacted subcapital fracture), radiology read reviewed (Impacted subcapital fracture) and other (CT head negative)
*Pulse Oximetry
SaO2: 97
Oxygen Mode of Delivery: Room air
Patient hypoxic: no
*Critical Care Note
Total Time (30-74mins, 75-104mins- exclusive of procedures): Not Applicable
Update Note
Update Note:
Discussed with orthopedics and hospitalist
ED Attending Note
-
Portions of this chart may have been created with voice recognition software.� Occasional wrong word or��sound alike� substitutions may have occurred due to the inherent limitations of voice recognition software.
Discharge Plan
Departure
Patient Disposition: Admit
Date of Disposition: 02/07/25
Time of Disposition: 12:07
Presentation/result/management discussed w/ accepting MD/DO: Orthopedics
Discharge Problem:
Impacted subcapital right femur fracture
Interventions
Interventions:
*Risk Screen - Suicide Last Done: 02/07/25 11:03
*General Assessment Last Done: 02/07/25 11:03
*Neglect/Abuse Screening Last Done: 02/07/25 11:03
*ED- Fall Risk Assessment Last Done: 02/07/25 11:03
*ED COVID-19 Vaccine History Last Done: 02/07/25 09:42
ED-Musculoskeletal Assessment Last Done: 02/07/25 11:05
--- NOTE | 2025-02-07 12:04 | HPS.HSE ---
Addendum entered and electronically signed by Dre Olvera MD 02/07/25 13:09:
Per Ortho Dr Cameron consult
- will do a total on Monday
- can have PO diet till Monday night
Original Note:
Family Physician
-
Family Physician: Jacinta Brown
Chief Complaint
-
Rt Hip pain s/p fall
History of Present Illness
HPI
69F HX COPD, HTN, Prx AF on Eliquis , HLD on statin and Plavix seen at ER:
- tripped and fell landing onth right hip.
- Severe pain right hip.
- Unable to bear weight.
- No head injury or other complaint.
- on Eliquis
Medical History
Past Medical History
Past Medical History: Reports Other
Additional Past Medical History:
Hypertension
Depression
Ovarian Torsion / Benign Mass
Past Surgical History: Reports Other
Additional Past Surgical History:
Back Surgery
Partial Hysterectomy
Ex Lap with BSO, appendectomy, Meckel's diverticulum resection (October 2023)
Social History
Tobacco: Smoker (Current every day smoker. 1 ppd. > 50 pack years total use.)
Alcohol: None
Drug: None
Family History
Family History: Other (Mother: Longevity, Breast Ca, Colon Ca Brother: Gastric Ca, Esophageal Ca)
Allergies / Home Medications
Allergies reflects when Allergies were last updated in [employer].
Home Medications with original date entered in [employer]
Allergy/Medication List:
Allergies
Allergy/AdvReac Type Severity Reaction Status Date / Time
No Known Allergies Allergy Verified 12/06/24 17:30
Home Medications
carvedilol 12.5 mg tablet (Coreg) 12.5 mg PO BID 11/20/23
sertraline 100 mg tablet 200 mg PO DAILY 11/20/23
amlodipine 5 mg tablet 5 mg PO QPM 12/06/24
Review of Systems
-
Constitutional: Reports No Symptoms
EENT: Reports No Symptoms
Respiratory: Reports No Symptoms
Cardiac: Reports No Symptoms
Abdomen/GI: Reports No Symptoms
: Reports No Symptoms
Musculoskeletal: Reports See HPI
Skin: Reports No Symptoms
Neurological: Reports No Symptoms
Endocrine: Reports No Symptoms
Hematologic/Lymphatic: Reports No Symptoms
Psych: Reports No Symptoms
Physical Exam
Vital Signs
Vital Signs
Temp Pulse Resp BP Pulse Ox
97.5 F 82 19 139/45 96
02/07/25 09:42 02/07/25 11:06 02/07/25 11:06 02/07/25 11:00 02/07/25 11:45
Physical Exam
General: Well Developed, Well Nourished and No Apparent Distress
HEENT: NormoCephalic, Moist mucous membranes and Atraumatic
Respiratory: Clear
Cardiac: S1/S2 and Regular Rhythm; No Murmur or Rub
GI: Soft, Non Tender, Non Distended and Normal Bowel Sounds; No Organomegaly
Rectal: Deferred by Provider
Musculoskeletal: Other (Shortening right leg. Severe pain with rotation of the hip. )
Skin: No Rash
Neuro: Nonfocal/grossly intact
Laboratory Results
-
02/07/25 10:04
02/07/25 10:04
Laboratory Results
Total Bilirubin 0.9 mg/dl (0.2-1.3) 02/07/25 10:04
AST 25 U/L (14-36) 02/07/25 10:04
ALT 22 U/L (0-35) 02/07/25 10:04
Alkaline Phosphatase 75 U/L (38-126) 02/07/25 10:04
Data Reviewed
-
Lab Data: Labs Reviewed by me
Old Records: Reviewed
Impression/Plan
-
Vital Signs
Temp Pulse Resp BP Pulse Ox
97.5 F 82 19 139/45 96
02/07/25 09:42 02/07/25 11:06 02/07/25 11:06 02/07/25 11:00 02/07/25 11:45
Laboratory Tests
01/10/25 02/07/25
12:03 10:04
WBC 18.1 H
Hgb 8.0 L 9.4 L
Plt Count 460 H 457 H
Chloride 110 H
Carbon Dioxide 21 L
BUN 22 H
Creatinine 0.8
eGFR > 60.00
Calcium 9.0
02/07/25 Pelvis and femur XR:
Impacted fracture is seen within the subcapital portion of the proximal right femur.
No additional fractures are appreciated.
12/09/24 TTE
LVEF 60
Diastolic function indeterminate.
Mitral sclerosis without stenosis. Trace mitral regurgitation.
12/07/24 EKG
SINUS RHYTHM WITH MARKED SINUS ARRHYTHMIA
NONSPECIFIC ST AND T WAVE ABNORMALITY
ABNORMAL ECG
WHEN COMPARED WITH ECG OF 06-DEC-2024 21:36,
PREMATURE ATRIAL COMPLEXES ARE NO LONGER PRESENT
Confirmed by MADELINE MARTINI DO ([id number]) on 12/08/2024 9:59:26 PM
ASSESSMENT & PLAN
Pending Rx reconciliation
Pending Rx reconciliation
Impacted Fx subcapital portion of the proximal right femur with pre exiting OA
S/p mechanical fall
Functional with ADL
- pending HCT
- Hold Clopidogrel - last dose @8am today
- Hold Eliquis - last dose at 8am today
- Fx set protocol
- T & S
- Ortho consulted
Leucocytosis suspect leukemoid reaction to acute Fx
- afebrile
- check UA
- Trend WCC
In NSR now
HX Prx AF
- Hold Eliquis
- cont carvedilol
HX myelodysplastic syndrome,
Pre existing condition:
Preserved normal renal function
Renal artery stenosis status post bilateral renal artery stents
HX TIA / CVA in november 2024 - no residual - on Plavix since
Bn HTN : on [employer] Hydralazine, Amlodipine , Carvedilol
Dyslipidemia: on Atorvastatin
Anxiety/depression : on Sertraline
HX tobacco use disorder
HX COPD listed : no on regular INH
DVT Px: SCD
Full Code:
IP TLM
--- NOTE | 2025-02-07 12:57 | CON.ORTHO ---
Consultation
-
Date/Time Consultation Requested: February 14/1227
Date/Time Consultation Performed: February 14/1236
Requesting Provider: Wade
Performing Provider: Jose Alejandro for Ritting
Reason for Consultation: Right hip fracture
Consultation - Orthopedics
History
History of Present Illness
HPI
69 white female smoker with PMH of COPD, HTN, AF on Eliquis , HLD on statin and Plavix with recent MD and CVA (per patient) in November 2024 with stents in kidney who [facility] this AM after a mechanical fall at home landing directly on her
right hip. No headstrike. No LOC. No prodrome. Dialysis Nurse Dr. Jones/Vascular Dr. Lima. no prior problems or issues with the right hip. X-rays in the ED revealed an impacted right femoral neck fracture. She has been admitted to Dr. Olvera and we
have been requested in consult for the consideration for surgical fixation. Of note she took Eliquis and Plavix today.
Past Medical History:
Hypertension
Depression
Ovarian Torsion / Benign Mass
Afib on Eliquis
AMI
CVA
Past Surgical History:
Back Surgery
Partial Hysterectomy
Ex Lap with BSO, appendectomy, Meckel's diverticulum resection (October 2023)
Social History:
Tobacco: Smoker (Current every day smoker. 1 ppd. > 50 pack years total use.)
Alcohol: None
Drug: None
Family History:
Not pertinent
ROS:
12 point negative except those mentioned in the HPI
Allergies / Home Medications
Allergy/AdvReac Type Severity Reaction Status Date / Time
No Known Allergies Allergy Verified 01/13/25 10:48
�Medication �Instructions �Recorded
sertraline 100 mg tablet 200 mg PO DAILY Mental 11/20/23
Health/Anxiety
amlodipine 10 mg tablet 10 mg PO DAILY #30 tabs 12/11/24
apixaban 5 mg tablet (Eliquis) 5 mg PO BID #60 tabs 12/11/24
atorvastatin 20 mg tablet 20 mg PO QPM #30 tabs 12/11/24
carvedilol 25 mg tablet 25 mg PO BID #60 tabs 12/11/24
clopidogrel 75 mg tablet 75 mg PO DAILY #30 tabs 12/11/24
hydralazine 25 mg tablet 50 mg PO BID 01/13/25
Vital Signs / Lab Results
Temp Pulse Resp BP Pulse Ox
97.5 F 68 18 134/48 97
02/07/25 09:42 02/07/25 12:27 02/07/25 12:27 02/07/25 12:00 02/07/25 12:30
02/07/25 10:04
02/07/25 10:04
Assessment / Plan
PE: Afeb. Hgb 9.4. Bedrest. Right hip skin intact. LLE equal. Pain generally around the right hip to palpation. + logroll RLE. Deferred ROM due to known fracture. Knee nontender. Calf soft, nontender. DNVI RLE
Xrays: Impacted RIGHT femoral neck fracture in the face of moderate right hip OA
Impression: JUDITH
Plan:
I had a lengthy bedside discussion with the patient. She fully understands the nature of her right hip fracture injury and our proposed treatment recommendations, both nonoperative and operative. In the face of her femoral neck fracture she also
has a moderate amount of OA. We discussed cannulated screw fixation versus hemiarthroplasty, however there is a reasonable possibility at some time in the future this may need to be converted to a total hip replacement, given her underlying OA. She
has a reasonable demand. After explaining all of the RBAs of each form of management she has accepted all the proposed risks of surgery and wishes to proceed with a total hip replacement. She would like to minimize the risk of additional surgery
here. Unfortunately she took her Plavix and Eliquis today. At minimum we will need 5 days for Plavix washout. If our anesthesia team here is comfortable with that we can hopefully proceed with regional anesthesia. If not, general anesthesia may
be utilized. we have tentatively arranged for Monday with Dr. Lozano. assuming she is medically optimized for surgery. we briefly discussed the postop and rehab course and will appreciate the assistance of CM with disposition. Surgical and
blood consent has been signed, scanned in [facility], placed to the patient's chart. Operative site has been marked as the RIGHT hip. continue treatment per Dr. Olvera and consultants. Trend Hgb. T&S has been requested. I will make her NPO at midnight
on Monday in anticipation of surgery on Monday. ABX and irrigation products OCTOR. OR aware. Will follow.
[2025-02-07] MEDS: TYLENOL 650 MG PO ×3 (14:48→23:34)
--- NOTE | 2025-02-07 15:06 | CM ---
CM reviewed chart, patient seen bedside, initial assessment completed. Patient is a 69F HX COPD, HTN, Prx AF on Eliquis, HLD on statin and Plavix seen at ER: tripped and fell landing on the right hip.
Patient resides with her in a single story home, two steps to enter. Patient previously independent with ADLs/IADLs, denies use of DME, VN/SNF. Patient PCP Jacinta Brown, pharmacy [facility], confirms prescription coverage. Patient
denies insecurities at home. For surgery Monday for total hip replacement. CM will continue to follow for all discharge planning needs.
Plan; OR Monday
--- NOTE | 2025-02-07 17:38 | PTCARENOTE ---
Patient admitted through the emergency room with a fractured right hip secondary to a fall.The patient is alert and oriented.She reports her pain at a 5 out of 10.Patient is scheduled for surgery on Monday as she needs a washout on Eliquis and
Plavix.The patient is in her bed with the call haynes in place.
[2025-02-07] MEDS: LIPITOR 20 MG PO (18:26)
[2025-02-07] MEDS: ROXICODONE 5 MG PO (18:28)
[2025-02-07] MEDS: COLACE 100 MG PO (20:19)
[2025-02-07] MEDS: SENOKOT PO (20:20)
[2025-02-07] MEDS: COREG 25 MG PO (20:22)
[2025-02-07] MEDS: APRESOLINE 50 MG PO (20:23)
[2025-02-07 23:54] LABS: Urine Character Clear (Clear)
[2025-02-08 00:29] LABS: Urine Squamous Cell 16-20 /LPF (Few)
[2025-02-08 00:30] LABS: Urine Red Blood Cell 0-2 /HPF (0-2); Urine White Cell 0-2 /HPF (0-5)
[2025-02-08 03:02] VITALS: BP 142/58
[2025-02-08] MEDS: TYLENOL PO (05:04)
[2025-02-08 07:55] VITALS: BP 140/65
--- NOTE | 2025-02-08 09:04 | W.PN.UPDATE ---
Update Note
Progress Note Update
Patient resting comfortably with minimal discomfort at rest.
Plan for right MEÑO with Dr. Lozano on Monday to allow Plavix wash out.
Eliquis to be stopped 72 hours prior to surgery.
Pain control and NWB until surgery.
[2025-02-08] MEDS: COLACE 100 MG PO ×2 (09:23→20:15)
[2025-02-08] MEDS: TYLENOL 650 MG PO ×4 (09:23→20:15)
[2025-02-08] MEDS: NORVASC 10 MG PO (09:23)
[2025-02-08] MEDS: SENOKOT 17.2 MG PO ×2 (09:23→20:16)
[2025-02-08] MEDS: ZOLOFT 200 MG PO (09:23)
[2025-02-08] MEDS: COREG 25 MG PO ×2 (09:23→20:15)
[2025-02-08] MEDS: APRESOLINE 50 MG PO ×2 (09:24→20:16)
--- NOTE | 2025-02-08 10:59 | W.PN.HOSP.TC ---
Today's Communication/Plan
-
Assessment / Plan
Assessment / Plan
General: No Apparent Distress, Comfortable and Conversant
HEENT: NormoCephalic, Moist mucous membranes, Atraumatic
Respiratory: Clear and Non Labored Respirations
Cardiac: S1/S2 and Regular Rhythm; No Rub or Gallop
GI: Soft, Non Tender, Non Distended and Normal Bowel Sounds
Musculoskeletal: Right lateral hip ecchymosis and swelling with moderate TTP
Skin: Warm and dry
: NO Lima
Neuro: Awake, Alert, Nonfocal/grossly intact
Psych: Calm and Intact Judgment/Insight
Ms. Banks is a 69-year-old female with a medical history of MDS, paroxysmal A-fib (on Eliquis), CAD (NSTEMI, managed medically), aortoiliac and mesenteric artery occlusive disease (on Plavix and statin), bilateral renal artery stenosis
(status post stenting), hypertension, and 50+ pack year current every day smoker who presented with right hip pain after mechanical fall. Imaging showed impacted fracture of the subcapital portion of the proximal right femur. Her last doses of
Eliquis and Plavix were at 8 AM on 02/07. She has been admitted for further evaluation and management.
Right femur fracture:
- Secondary to mechanical fall
- Impacted fracture of the subcapital portion of the proximal right femur
- Holding home Eliquis and Plavix, last doses were at 8 AM on 02/07
- Tentatively planning for OR on Monday after Eliquis and Plavix washout
- N.p.o. after midnight 02/12
- Pain control as needed
- Nonweightbearing to right lower extremity
- Suspect presenting leukocytosis is reactive secondary to acute fracture, doubt infection, monitor off antibiotics
Peripheral artery disease:
- History of aortoiliac and mesenteric artery occlusive disease
- Bilateral renal artery stenosis which have been stented bilaterally
- Continue statin
- Holding Plavix perioperatively
- Blood pressure currently well-controlled on outpatient regimen of amlodipine 10 mg daily, valsartan 80 mg daily, carvedilol 25 mg twice daily, and hydralazine 50 mg twice daily
Hypertension:
- Continue home antihypertensive regimen as outlined above
A-fib:
- Paroxysmal
- Currently rate controlled on home carvedilol 25 mg twice daily
- Holding Eliquis perioperatively, restart as able
CAD:
- Currently acceptable cardiovascular risk for planned procedure
- Holding antiplatelet therapy perioperatively, restart as able
- Continue statin therapy
Nicotine dependence:
- 50+ pack year current 1 pack/day smoker
- Nicotine patch provided
- Encourage cessation
DVT prophylaxis: SCDs
CODE STATUS: Full code
Total time spent on today's encounter was 40 minutes
Anticipated Discharge: > 48 hours
Subjective/Interval History
-
Date of Service: February 08, 2025
Patient was seen and examined at bedside this morning. Currently comfortable. Has some bruising and swelling of her right hip. Awaiting OR for ORIF tentatively on Monday after Eliquis and Plavix washout.
Objective Data
-
Vital Signs:
Vital Signs
Temp Pulse Resp BP Pulse Ox
97.5 F 95 18 140/65 96
02/08/25 07:55 02/08/25 07:55 02/08/25 07:55 02/08/25 07:55 02/08/25 07:55
I&O
02/07/25 02/08/25 02/09/25
06:59 06:59 06:59
Intake Total 480 / 480
Balance 480 / 480
Review of Systems
-
History Source: Patient
All other systems: Reviewed and negative
Skin: Reports Other (Right hip ecchymosis and swelling)
Physical Exam
-
General: No Apparent Distress
[2025-02-08 11:35] VITALS: BP 121/47
[2025-02-08] MEDS: NICODERM TRANSDERMAL 14 MG TRANSDERM (12:49)
[2025-02-08 15:40] VITALS: BP 146/63
[2025-02-08] MEDS: LIPITOR 20 MG PO (17:16)
[2025-02-08 19:15] VITALS: BP 142/49
[2025-02-08] MEDS: MELATONIN 5 MG PO (20:24)
[2025-02-08 23:20] VITALS: BP 154/58
[2025-02-09] MEDS: TYLENOL PO (01:12)
[2025-02-09 03:15] VITALS: BP 141/56
[2025-02-09] MEDS: TYLENOL 650 MG PO ×5 (03:44→20:14)
[2025-02-09] MEDS: ROXICODONE 5 MG PO ×4 (05:36→21:35)
[2025-02-09 07:50] VITALS: BP 147/57
[2025-02-09] MEDS: COREG 25 MG PO ×2 (09:05→20:15)
[2025-02-09] MEDS: APRESOLINE 50 MG PO ×2 (09:06→20:15)
[2025-02-09] MEDS: ZOLOFT 200 MG PO (09:07)
[2025-02-09] MEDS: NORVASC 10 MG PO (09:08)
[2025-02-09] MEDS: NICODERM TRANSDERMAL 14 MG TRANSDERM (09:10)
[2025-02-09] MEDS: SENOKOT PO ×2 (09:12→20:09)
[2025-02-09] MEDS: COLACE PO ×2 (09:12→20:09)
[2025-02-09 11:45] VITALS: BP 137/59
--- NOTE | 2025-02-09 11:57 | W.PN.UPDATE ---
Update Note
Progress Note Update
Patient resting comfortably with minimal discomfort at rest. C/o loose stools overnight, likely due to sennekot.
Eliquis and plavix on hold.
Plan for right MEÑO with Dr. Lozano on Monday to allow Plavix wash out.
Pain control and NWB until surgery.
NPO after midnight on Monday.
Will continue to monitor.
[2025-02-09 15:05] VITALS: BP 132/79
--- NOTE | 2025-02-09 15:10 | W.PN.HOSP.TC ---
Today's Communication/Plan
-
Assessment / Plan
Assessment / Plan
General: No Apparent Distress, Comfortable and Conversant
HEENT: NormoCephalic, Moist mucous membranes, Atraumatic
Respiratory: Clear and Non Labored Respirations
Cardiac: S1/S2 and Regular Rhythm; No Rub or Gallop
GI: Soft, Non Tender, Non Distended and Normal Bowel Sounds
Musculoskeletal: Right lateral hip ecchymosis and swelling with moderate TTP
Skin: Warm and dry
: NO Lima
Neuro: Awake, Alert, Nonfocal/grossly intact
Psych: Calm and Intact Judgment/Insight
Ms. Banks is a 69-year-old female with a medical history of MDS, paroxysmal A-fib (on Eliquis), CAD (NSTEMI, managed medically), aortoiliac and mesenteric artery occlusive disease (on Plavix and statin), bilateral renal artery stenosis
(status post stenting), hypertension, and 50+ pack year current every day smoker who presented with right hip pain after mechanical fall. Imaging showed impacted fracture of the subcapital portion of the proximal right femur. Her last doses of
Eliquis and Plavix were at 8 AM on 02/07. She has been admitted for further evaluation and management.
Right femur fracture:
- Secondary to mechanical fall
- Impacted fracture of the subcapital portion of the proximal right femur
- Holding home Eliquis and Plavix, last doses were at 8 AM on 02/07
- Tentatively planning for OR on Monday after Eliquis and Plavix washout, will bridge with heparin drip starting tomorrow morning 8:00 AM 02/10
- N.p.o. after midnight 02/12
- Pain control as needed
- Nonweightbearing to right lower extremity
- Suspect presenting leukocytosis is reactive secondary to acute fracture, doubt infection, monitor off antibiotics
Peripheral artery disease:
- History of aortoiliac and mesenteric artery occlusive disease
- Bilateral renal artery stenosis which have been stented bilaterally
- Continue statin
- Holding Plavix perioperatively
- Blood pressure currently well-controlled on outpatient regimen of amlodipine 10 mg daily, valsartan 80 mg daily, carvedilol 25 mg twice daily, and hydralazine 50 mg twice daily
Hypertension:
- Continue home antihypertensive regimen as outlined above
A-fib:
- Paroxysmal
- Currently rate controlled on home carvedilol 25 mg twice daily
- Holding Eliquis perioperatively, restart as able, will bridge with heparin drip starting tomorrow morning 8:00 AM 02/10
CAD:
- Currently acceptable cardiovascular risk for planned procedure
- Holding antiplatelet therapy perioperatively, restart as able
- Continue statin therapy
Nicotine dependence:
- 50+ pack year current 1 pack/day smoker
- Nicotine patch provided
- Encourage cessation
DVT prophylaxis: SCDs
CODE STATUS: Full code
Total time spent on today's encounter was 40 minutes
Anticipated Discharge: > 48 hours
Subjective/Interval History
-
Date of Service: February 09, 2025
Patient was seen and examined at bedside this morning. Ongoing right hip pain. Awaiting Eliquis and Plavix washout prior to surgical repair.
Objective Data
-
Vital Signs:
Vital Signs
Temp Pulse Resp BP Pulse Ox
98.0 F 59 16 137/59 96
02/09/25 11:45 02/09/25 11:45 02/09/25 11:45 02/09/25 11:45 02/09/25 11:45
I&O
02/08/25 02/09/25 02/10/25
06:59 06:59 06:59
Intake Total 480 / 480 620 / 620 360 / 360
Balance 480 / 480 620 / 620 360 / 360
Review of Systems
-
History Source: Patient
All other systems: Reviewed and negative
Musculoskeletal: Reports Joint Pain (Right hip pain)
Physical Exam
-
General: No Apparent Distress
[2025-02-09] MEDS: LIPITOR 20 MG PO (17:34)
[2025-02-09 19:30] VITALS: BP 142/57
[2025-02-09] MEDS: MELATONIN 5 MG PO (20:15)
[2025-02-09 23:45] VITALS: BP 132/54
[2025-02-10 03:37] VITALS: BP 148/61
[2025-02-10] MEDS: TYLENOL PO ×3 (04:36→23:10)
[2025-02-10] MEDS: ROXICODONE 5 MG PO ×2 (06:31→10:47)
[2025-02-10 06:59] LABS: APTT 37.6 Sec (23.4-35.0)
[2025-02-10 07:13] LABS: Hematocrit 27.0 % (37.0-47.0); Hemoglobin 9.0 g/dL (12.0-16.0); Mean Corp Hgb Conc. 33.3 g/dL (33.0-37.0); Mean Corpuscular Volume 106.7 fL (81.0-99.0); Nucleated Red Blood Cells % 0.6 %; Platelet Count 386 10^3/uL (130-400); Red Cell Dist. Width 23.8 % (11.5-14.5)
[2025-02-10 07:19] LABS: Blood Urea Nitrogen 19 mg/dl (7-17); Calcium 8.8 mg/dl (8.4-10.2); Carbon Dioxide 24 mmol/L (22-30); Chloride 109 mmol/L (98-107); Estimated Creatinine Clearance 63 ml/min; Glucose 107 mg/dl (70-99); Potassium 4.6 mmol/L (3.5-5.1); Sodium 138 mmol/L (135-145); eGFR > 60.00
[2025-02-10 07:30] VITALS: BP 140/48
[2025-02-10 07:46] LABS: Anisocytosis 1+; Basophilic Stippling 1+; Hypochromasia 1+; Normal RBC Morphology No; Ovalocytes 1+; Polychromasia 1+; Target Cells 1+
[2025-02-10] MEDS: COREG 25 MG PO (08:04)
[2025-02-10] MEDS: NORVASC 10 MG PO (08:04)
[2025-02-10] MEDS: ZOLOFT 200 MG PO (08:04)
[2025-02-10] MEDS: TYLENOL 650 MG PO ×4 (08:04→21:14)
[2025-02-10] MEDS: APRESOLINE 50 MG PO ×2 (08:05→21:14)
[2025-02-10] MEDS: COLACE PO ×3 (08:05→21:13)
[2025-02-10] MEDS: SENOKOT PO ×3 (08:06→21:13)
[2025-02-10] MEDS: NICODERM TRANSDERMAL 14 MG TRANSDERM (08:06)
[2025-02-10] MEDS: HEPARIN 25000 UNITS/250 ML IV (08:06)
--- NOTE | 2025-02-10 08:30 | W.PN.HOSP.TC ---
Today's Communication/Plan
-
OR Monday
Assessment / Plan
Assessment / Plan
Impression:
Patient is a 69-year-old female with a medical history of MDS, paroxysmal A-fib (on Eliquis), CAD (NSTEMI, managed medically), aortoiliac and mesenteric artery occlusive disease (on Plavix and statin), bilateral renal artery stenosis (status post
stenting), hypertension, and 50+ pack year current every day smoker who presented with right hip pain after mechanical fall. Imaging showed impacted fracture of the subcapital portion of the proximal right femur. Her last doses of Eliquis and
Plavix were at 8 AM on 02/07. She has been admitted for further evaluation and management.
Assessment/plan:
Right femur fracture:
- Secondary to mechanical fall
- Impacted fracture of the subcapital portion of the proximal right femur
- Holding home Eliquis and Plavix, last doses were at 8 AM on 02/07
- Tentatively planning for OR on Monday after Eliquis and Plavix washout, will bridge with heparin drip starting tomorrow morning 8:00 AM 02/10
- N.p.o. after midnight 02/12
- Pain control as needed
- Nonweightbearing to right lower extremity
- Suspect presenting leukocytosis is reactive secondary to acute fracture, doubt infection, monitor off antibiotics-improved.
Peripheral artery disease:
- History of aortoiliac and mesenteric artery occlusive disease
- Bilateral renal artery stenosis which have been stented bilaterally
- Continue statin
- Holding Plavix perioperatively
- Blood pressure currently well-controlled on outpatient regimen of amlodipine 10 mg daily, valsartan 80 mg daily, carvedilol 25 mg twice daily, and hydralazine 50 mg twice daily
Hypertension:
- Continue home antihypertensive regimen as outlined above
A-fib:
- Paroxysmal
- Currently rate controlled on home carvedilol 25 mg twice daily
- Holding Eliquis perioperatively, restart as able, started heparin drip 02/10
CAD:
- Currently acceptable cardiovascular risk for planned procedure
- Holding antiplatelet therapy perioperatively, restart as able
- Continue statin therapy
Nicotine dependence:
- 50+ pack year current 1 pack/day smoker
- Nicotine patch provided
- Encourage cessation
CODE STATUS: Full code
DVT prophylaxis: heparin drip
Diet: Regular diet
Total time spent on today's encounter was 65 minutes which included time spent in counseling the patient/family regarding diagnosis and treatment plan as listed above, goals of care, and symptom management. Case was discussed with nursing staff,
specialists, and care coordinators/case management. All labs and imaging personally reviewed by me. Remainder the time spent in detailed review of previous records, lab data, imaging, and other medical provider documentation.
Anticipated Discharge: > 48 hours
Subjective/Interval History
-
Date of Service: February 10, 2025
Patient seen and examined at bedside, denies any chest pain or shortness of breath, no abdominal pain, no nausea, no vomiting, no diarrhea or constipation.
Still with significant right hip pain
Objective Data
-
Labs:
Laboratory Results
02/10/25
06:36
WBC 8.0
Hgb 9.0 L
Hct 27.0 L
Plt Count 386
APTT 37.6 H
Sodium 138
Potassium 4.6
Chloride 109 H
Carbon Dioxide 24
BUN 19 H
Creatinine 0.7
Glucose 107 H
Calcium 8.8
Vital Signs:
Vital Signs
Temp Pulse Resp BP Pulse Ox
98.3 F 56 16 134/57 98
02/10/25 07:30 02/10/25 08:05 02/10/25 07:30 02/10/25 08:05 02/10/25 07:30
I&O
02/09/25 02/10/25 02/11/25
06:59 06:59 06:59
Intake Total 620 / 620 600 / 600
Balance 620 / 620 600 / 600
Physical Exam
-
General: Well Developed, Well Nourished, No Apparent Distress and Comfortable
HEENT: Normocephalic, Atraumatic, Moist Mucous Membranes, No Ptosis, PERRLA and Nose Appears Normal
Respiratory: Clear to Auscultation and Non Labored Respirations
Cardiac: Regular Rhythm and S1/S2
Breast: Deferred by me
GI: Soft, Nontender, Nondistended and Normal Bowel Sounds
Genito-urinary: No Costovertebral Tender
Musculoskeletal: No Clubbing, No Cyanosis and Other (Right hip tender)
Skin: Warm
Neuro: Awake, Alert, Oriented, AO x 3 and No Motor Deficits
Psych: Calm
Data Reviewed
-
Diagnostic Radiology: Image personally visualized and interpreted and Report Reviewed by me
CT Scan: Image personally visualized and interpreted and Report Reviewed by me
Ultrasound: Image personally visualized and interpreted and Report Reviewed by me
MRI: Image personally visualized and interpreted and Report Reviewed by me
Medical Tests (Nuc Med, Echo etc): Image personally visualized and interpreted and Report Reviewed by me
Labs: Labs Reviewed by me
Old Records: Reviewed
--- NOTE | 2025-02-10 10:42 | W.PN.UPDATE ---
Update Note
Progress Note Update
Appreciate the hospitalist team, continue treatment. Patient has been consented for right MEÑO (for fracture), and plan to proceed with this on Monday under the direction of Dr. Lozano. Will continue to follow for now. Bedrest. NPO order has
been placed, ABX/irrigation products are adult nurse practitioner, and updated T&S has been requested. Eliquis and Plavix on hold. Will follow
--- NOTE | 2025-02-10 10:48 | CM ---
Reviewed the chart notes and spoke with the patient at the bedside. Patient needing washout of anticoagulants. Patient anticipates going to surgery on Monday for total hip replacement. CM continues to be available to patient/family and is
monitoring medical plan for needs at discharge.
Plan: Discharge plans will depend on the patient's progress.
[2025-02-10 11:10] VITALS: BP 138/48
[2025-02-10] MEDS: DILAUDID 0.5 MG IV ×2 (12:07→19:02)
[2025-02-10 15:26] LABS: APTT 38.4 Sec (23.4-35.0)
[2025-02-10 15:40] VITALS: BP 147/51
[2025-02-10] MEDS: LIPITOR 20 MG PO (16:52)
[2025-02-10 19:25] VITALS: BP 128/47
[2025-02-10] MEDS: COREG PO (21:13)
[2025-02-10] MEDS: MELATONIN 5 MG PO (21:14)
[2025-02-10 22:30] LABS: APTT 37.2 Sec (23.4-35.0)
[2025-02-10 23:18] VITALS: BP 131/51
[2025-02-11] VITALS (7 sets, daily range): BP systolic 127–150; BP diastolic 47–82
--- NOTE | 2025-02-11 02:22 | DOWNTIME ---
There was a [employer] Downtime on 02/11/2025 from 0100 to 02/11/2025 at 0220. Downtime documentation of patient's care, including medication administrations, has been reconciled in the electronic record per guidelines. Refer to the
patient's paper chart under the miscellaneous tab to see printed paper medication records and downtime forms.
[2025-02-11] MEDS: TYLENOL 650 MG PO ×5 (04:01→20:06)
[2025-02-11] MEDS: ROXICODONE 5 MG PO ×3 (04:02→17:02)
[2025-02-11 05:42] LABS: APTT 44.9 Sec (23.4-35.0)
[2025-02-11 07:00] LABS: Hematocrit 26.0 % (37.0-47.0); Hemoglobin 8.3 g/dL (12.0-16.0); Mean Corp Hgb Conc. 31.9 g/dL (33.0-37.0); Mean Corpuscular Volume 107.9 fL (81.0-99.0); Platelet Count 377 10^3/uL (130-400); Red Cell Dist. Width 24.2 % (11.5-14.5)
--- NOTE | 2025-02-11 07:10 | W.PN.UPDATE ---
Update Note
Progress Note Update
Patient resting this morning at the time of rounds and therefore I did not disturb. Patient has been consented for right MEÑO (for fracture), and plan to proceed with this tomorrow under the direction of Dr. Lozano. Bedrest for now. NPO order has
been placed, ABX/irrigation products are control analyst, and updated T&S has been requested. Eliquis and Plavix on hold. Will continue to follow.
[2025-02-11 07:37] LABS: Blood Urea Nitrogen 19 mg/dl (7-17); Calcium 8.1 mg/dl (8.4-10.2); Carbon Dioxide 24 mmol/L (22-30); Chloride 110 mmol/L (98-107); Estimated Creatinine Clearance 63 ml/min; Glucose 96 mg/dl (70-99); Potassium 4.2 mmol/L (3.5-5.1); Sodium 138 mmol/L (135-145); eGFR > 60.00
[2025-02-11] MEDS: NICODERM TRANSDERMAL 14 MG TRANSDERM (09:25)
[2025-02-11] MEDS: NORVASC 10 MG PO (09:26)
[2025-02-11] MEDS: SENOKOT PO ×2 (09:29→20:05)
[2025-02-11] MEDS: COLACE PO ×2 (09:29→20:05)
[2025-02-11] MEDS: ZOLOFT 200 MG PO (09:29)
[2025-02-11] MEDS: COREG 25 MG PO (09:30)
[2025-02-11] MEDS: APRESOLINE 50 MG PO ×2 (09:30→20:06)
--- NOTE | 2025-02-11 10:22 | CM ---
Patient seen at bedside
OR tomorrow
will await post-op therapy evals
Plan: Discharge plans will depend on the patient's progress.
[2025-02-11] MEDS: HEPARIN 25000 UNITS/250 ML IV (11:16)
[2025-02-11] MEDS: DILAUDID 0.5 MG IV ×2 (11:17→18:26)
[2025-02-11 12:20] LABS: APTT 59.0 Sec (23.4-35.0)
--- NOTE | 2025-02-11 14:11 | W.PN.HOSP.TC ---
Today's Communication/Plan
-
OR Monday
Assessment / Plan
Assessment / Plan
Impression:
Patient is a 69-year-old female with a medical history of MDS, paroxysmal A-fib (on Eliquis), CAD (NSTEMI, managed medically), aortoiliac and mesenteric artery occlusive disease (on Plavix and statin), bilateral renal artery stenosis (status post
stenting), hypertension, and 50+ pack year current every day smoker who presented with right hip pain after mechanical fall. Imaging showed impacted fracture of the subcapital portion of the proximal right femur. Her last doses of Eliquis and
Plavix were at 8 AM on 02/07. She has been admitted for further evaluation and management.
Assessment/plan:
Right femur fracture:
- Secondary to mechanical fall
- Impacted fracture of the subcapital portion of the proximal right femur
- Holding home Eliquis and Plavix, last doses were at 8 AM on 02/07
- started bridge with heparin drip .
- N.p.o. for OR in am
- Pain control as needed
- Nonweightbearing to right lower extremity
.
Peripheral artery disease:
- History of aortoiliac and mesenteric artery occlusive disease
- Bilateral renal artery stenosis which have been stented bilaterally
- Continue statin
- Holding Plavix perioperatively
- Blood pressure currently well-controlled on outpatient regimen of amlodipine 10 mg daily, valsartan 80 mg daily, carvedilol 25 mg twice daily, and hydralazine 50 mg twice daily
Hypertension:
- Continue home antihypertensive regimen as outlined above
A-fib:
- Paroxysmal
- Currently rate controlled on home carvedilol 25 mg twice daily
- Holding Eliquis perioperatively, restart as able, started heparin drip 02/10
CAD:
- Currently acceptable cardiovascular risk for planned procedure
- Holding antiplatelet therapy perioperatively, restart as able
- Continue statin therapy
Nicotine dependence:
- 50+ pack year current 1 pack/day smoker
- Nicotine patch provided
- Encourage cessation
CODE STATUS: Full code
DVT prophylaxis: heparin drip
Diet: Regular diet- NPO after midnight
Total time spent on today's encounter was 65 minutes which included time spent in counseling the patient/family regarding diagnosis and treatment plan as listed above, goals of care, and symptom management. Case was discussed with nursing staff,
specialists, and care coordinators/case management. All labs and imaging personally reviewed by me. Remainder the time spent in detailed review of previous records, lab data, imaging, and other medical provider documentation.
Anticipated Discharge: > 48 hours
Subjective/Interval History
-
Date of Service: February 11, 2025
Patient seen and examined at bedside, still having right hip pain, for OR in am.
Objective Data
-
Labs:
Laboratory Results
02/11/25 02/11/25 02/11/25
04:44 06:14 11:55
WBC 7.5
Hgb 8.3 L
Hct 26.0 L
Plt Count 377
APTT 44.9 H 59.0 H
Sodium 138
Potassium 4.2
Chloride 110 H
Carbon Dioxide 24
BUN 19 H
Creatinine 0.7
Glucose 96
Calcium 8.1 L
02/11/25
18:30
WBC
Hgb
Hct
Plt Count
APTT Pending
Sodium
Potassium
Chloride
Carbon Dioxide
BUN
Creatinine
Glucose
Calcium
Vital Signs:
Vital Signs
Temp Pulse Resp BP Pulse Ox
97.9 F 80 18 136/52 91
02/11/25 11:25 02/11/25 11:25 02/11/25 11:25 02/11/25 11:02/11/25 11:25
I&O
02/10/25 02/11/25 02/12/25
06:59 06:59 06:59
Intake Total 600 / 600 240 / 240 360 / 360
Balance 600 / 600 240 / 240 360 / 360
Physical Exam
-
General: Well Developed, Well Nourished, No Apparent Distress and Comfortable
HEENT: Normocephalic, Atraumatic, Moist Mucous Membranes, No Ptosis, PERRLA and Nose Appears Normal
Respiratory: Clear to Auscultation and Non Labored Respirations
Cardiac: Regular Rhythm and S1/S2
Breast: Deferred by me
GI: Soft, Nontender, Nondistended and Normal Bowel Sounds
Genito-urinary: No Costovertebral Tender
Musculoskeletal: No Clubbing, No Cyanosis and Other (Right hip tender)
Skin: Warm
Neuro: Awake, Alert, Oriented, AO x 3 and No Motor Deficits
Psych: Calm
Data Reviewed
-
Diagnostic Radiology: Image personally visualized and interpreted and Report Reviewed by me
CT Scan: Image personally visualized and interpreted and Report Reviewed by me
Ultrasound: Image personally visualized and interpreted and Report Reviewed by me
MRI: Image personally visualized and interpreted and Report Reviewed by me
Medical Tests (Nuc Med, Echo etc): Image personally visualized and interpreted and Report Reviewed by me
Labs: Labs Reviewed by me
Old Records: Reviewed
[2025-02-11] MEDS: LIPITOR 20 MG PO (17:02)
[2025-02-11 18:41] LABS: APTT 108.0 Sec (23.4-35.0)
[2025-02-11] MEDS: COREG PO (20:05)
[2025-02-11] MEDS: MELATONIN 5 MG PO (20:18)
[2025-02-12] VITALS (16 sets, daily range): BP systolic 120–164; BP diastolic 43–87; PULSE 66; O2SAT 97
[2025-02-12] MEDS: TYLENOL 650 MG PO ×3 (00:59→19:59)
[2025-02-12] MEDS: ROXICODONE 5 MG PO ×4 (01:00→20:03)
[2025-02-12 01:10] LABS: APTT 134.8 Sec (23.4-35.0)
[2025-02-12] MEDS: DILAUDID 0.5 MG IV ×3 (01:34→17:04)
[2025-02-12] MEDS: FLUSH (NSS) 1 FLUSH IV (01:34)
[2025-02-12] MEDS: HEPARIN 25000 UNITS/250 ML IV (04:19)
[2025-02-12] MEDS: TYLENOL PO ×3 (04:42→14:24)
[2025-02-12] MEDS: FLUSH (NSS) 2 FLUSH IV (06:09)
--- NOTE | 2025-02-12 06:39 | PTCARENOTE ---
Heparin gtt stopped at this time per verbal orders from ortho PA.
--- NOTE | 2025-02-12 06:50 | W.PN.UPDATE ---
Update Note
Progress Note Update
Patient fractured right hip last week and is undergoing Eliquis/Plavix washout. She is scheduled undergo right total hip arthroplasty with Dr. Lozano today. It appears as though she was started on a heparin drip and is still on it this morning.
Discussed with her nurse Ingrid who is going to discontinue immediately. I did talk to the operating room and they anticipate her surgery going later this morning. I will alert anesthesiologist and Dr. Lozano that her heparin drip was stopped at
6:40 AM this morning. Hopefully they are still good with proceeding with surgery. Hemoglobin yesterday was 8.3 so need to also see what her hemoglobin lands at this morning. I do see that she does have a type and screen. Consent for surgery and
blood is signed and on her chart. Surgical location marked. Antibiotics, antibiotic irrigation and TXA irrigation on-call to operating room.
[2025-02-12 07:38] LABS: Hematocrit 25.4 % (37.0-47.0); Hemoglobin 8.3 g/dL (12.0-16.0); Mean Corp Hgb Conc. 32.7 g/dL (33.0-37.0); Mean Corpuscular Volume 107.6 fL (81.0-99.0); Platelet Count 379 10^3/uL (130-400); Red Cell Dist. Width 23.9 % (11.5-14.5)
[2025-02-12 07:57] LABS: Blood Urea Nitrogen 14 mg/dl (7-17); Calcium 8.3 mg/dl (8.4-10.2); Carbon Dioxide 24 mmol/L (22-30); Chloride 110 mmol/L (98-107); Estimated Creatinine Clearance 73 ml/min; Glucose 95 mg/dl (70-99); Potassium 4.2 mmol/L (3.5-5.1); Sodium 138 mmol/L (135-145); eGFR > 60.00
[2025-02-12] MEDS: SENOKOT PO ×2 (09:56→19:59)
[2025-02-12] MEDS: COLACE PO ×2 (09:56→19:58)
[2025-02-12] MEDS: COREG PO ×2 (10:05→19:58)
[2025-02-12] MEDS: APRESOLINE PO (10:05)
[2025-02-12] MEDS: NICODERM TRANSDERMAL TRANSDERM (10:06)
[2025-02-12] MEDS: NORVASC PO (10:06)
--- NOTE | 2025-02-12 11:54 | CM ---
Reviewed the chart notes. Patient off floor to OR for right total hip arthroplasty. CM continues to be available to patient/family and is monitoring medical plan for needs at discharge.
Plan: Discharge plans will depend on the patient's progress.
--- NOTE | 2025-02-12 12:34 | W.PN.HOSP.TC ---
Today's Communication/Plan
-
OR today.
Assessment / Plan
Assessment / Plan
Impression:
Patient is a 69-year-old female with a medical history of MDS, paroxysmal A-fib (on Eliquis), CAD (NSTEMI, managed medically), aortoiliac and mesenteric artery occlusive disease (on Plavix and statin), bilateral renal artery stenosis (status post
stenting), hypertension, and 50+ pack year current every day smoker who presented with right hip pain after mechanical fall. Imaging showed impacted fracture of the subcapital portion of the proximal right femur. Her last doses of Eliquis and
Plavix were at 8 AM on 02/07. She has been admitted for further evaluation and management.
Assessment/plan:
Right femur fracture:
- Secondary to mechanical fall
- Impacted fracture of the subcapital portion of the proximal right femur
- Holding home Eliquis and Plavix, last doses were at 8 AM on 02/07
- started bridge with heparin drip .
- N.p.o. for OR today.
- Pain control as needed
- Nonweightbearing to right lower extremity
.
Peripheral artery disease:
- History of aortoiliac and mesenteric artery occlusive disease
- Bilateral renal artery stenosis which have been stented bilaterally
- Continue statin
- Holding Plavix perioperatively
- Blood pressure currently well-controlled on outpatient regimen of amlodipine 10 mg daily, valsartan 80 mg daily, carvedilol 25 mg twice daily, and hydralazine 50 mg twice daily
Hypertension:
- Continue home antihypertensive regimen as outlined above
A-fib:
- Paroxysmal
- Currently rate controlled on home carvedilol 25 mg twice daily
- Holding Eliquis perioperatively, restart as able, started heparin drip 02/10
CAD:
- Currently acceptable cardiovascular risk for planned procedure
- Holding antiplatelet therapy perioperatively, restart as able
- Continue statin therapy
Nicotine dependence:
- 50+ pack year current 1 pack/day smoker
- Nicotine patch provided
- Encourage cessation
CODE STATUS: Full code
DVT prophylaxis: heparin drip
Diet: Regular diet- NPO for OR today.
Total time spent on today's encounter was 65 minutes which included time spent in counseling the patient/family regarding diagnosis and treatment plan as listed above, goals of care, and symptom management. Case was discussed with nursing staff,
specialists, and care coordinators/case management. All labs and imaging personally reviewed by me. Remainder the time spent in detailed review of previous records, lab data, imaging, and other medical provider documentation.
Anticipated Discharge: > 48 hours
Subjective/Interval History
-
Date of Service: February 12, 2025
Patient seen and examined at bedside, still having right hip pain, for OR in today..
Objective Data
-
Labs:
Laboratory Results
02/12/25 02/12/25 02/12/25
00:41 06:00 06:58
WBC 6.7
Hgb 8.3 L
Hct 25.4 L
Plt Count 379
PT Cancelled
INR Cancelled
APTT 134.8 H Cancelled
Sodium 138
Potassium 4.2
Chloride 110 H
Carbon Dioxide 24
BUN 14
Creatinine 0.6
Glucose 95
Calcium 8.3 L
02/12/25
08:30
WBC
Hgb
Hct
Plt Count
PT
INR
APTT Cancelled
Sodium
Potassium
Chloride
Carbon Dioxide
BUN
Creatinine
Glucose
Calcium
Vital Signs:
Vital Signs
Temp Pulse Resp BP Pulse Ox
97.7 F 53 16 158/56 100
02/12/25 12:15 02/12/25 07:39 02/12/25 07:39 02/12/25 07:39 02/12/25 12:15
I&O
02/11/25 02/12/25 02/13/25
06:59 06:59 06:59
Intake Total 240 / 240 1220 / 1220
Balance 240 / 240 1220 / 1220
Physical Exam
-
General: Well Developed, Well Nourished, No Apparent Distress and Comfortable
HEENT: Normocephalic, Atraumatic, Moist Mucous Membranes, No Ptosis, PERRLA and Nose Appears Normal
Respiratory: Clear to Auscultation and Non Labored Respirations
Cardiac: Regular Rhythm and S1/S2
Breast: Deferred by me
GI: Soft, Nontender, Nondistended and Normal Bowel Sounds
Genito-urinary: No Costovertebral Tender
Musculoskeletal: No Clubbing, No Cyanosis and Other (Right hip tender)
Skin: Warm
Neuro: Awake, Alert, Oriented, AO x 3 and No Motor Deficits
Psych: Calm
Data Reviewed
-
Diagnostic Radiology: Image personally visualized and interpreted and Report Reviewed by me
CT Scan: Image personally visualized and interpreted and Report Reviewed by me
Ultrasound: Image personally visualized and interpreted and Report Reviewed by me
MRI: Image personally visualized and interpreted and Report Reviewed by me
Medical Tests (Nuc Med, Echo etc): Image personally visualized and interpreted and Report Reviewed by me
Labs: Labs Reviewed by me
Old Records: Reviewed
[2025-02-12] MEDS: DILAUDID 0.25 MG IV ×2 (12:49→13:07)
--- NOTE | 2025-02-12 14:15 | PTCARENOTE ---
Pt received from the PACU via bed. Pt is drowsy and easily arousable. Pt's right hip with antibacterial dressing C/D/I one scant spot of drainage noted. Pt able to wiggle toes and reports full sensation to b/l feet. VSS, Pt is afebrile. Pt
instructed on plan of care. Pt verbalized understanding of instructions. [facility] is within reach.
[2025-02-12] MEDS: NICODERM TRANSDERMAL 14 MG TRANSDERM (14:26)
[2025-02-12] MEDS: ZOLOFT 200 MG PO (14:26)
[2025-02-12] MEDS: ANCEF 5 IV (17:11)
[2025-02-12] MEDS: LIPITOR 20 MG PO (17:12)
--- NOTE | 2025-02-12 17:15 | PTCARENOTE ---
Spoke with attending Physician regarding the Heparin drip that is currently on hold d/t Pt going to the OR this morning. Attending was advised by the Orthopedic team to continue to hold the Heparin drip for tonight and reevaluate in the morning to
restart drip. Pt was updated with this current information regarding the heparin drip.
[2025-02-12] MEDS: APRESOLINE 50 MG PO (19:59)
[2025-02-12] MEDS: MELATONIN 5 MG PO (20:00)
[2025-02-13] VITALS (8 sets, daily range): BP systolic 113–183; BP diastolic 42–65; PULSE 64; O2SAT 95; BMI 17.3
[2025-02-13] MEDS: TYLENOL PO (00:04)
[2025-02-13] MEDS: ANCEF 5 IV (02:21)
[2025-02-13] MEDS: FLUSH (NSS) 2 FLUSH IV (02:21)
[2025-02-13] MEDS: TYLENOL 650 MG PO ×5 (02:22→21:01)
[2025-02-13] MEDS: ROXICODONE 5 MG PO ×2 (02:27→06:39)
--- NOTE | 2025-02-13 06:53 | W.PN.ORTHO ---
Today's Communication / Plan
-
PT/OT
Hip precautions
Weightbearing as tolerated
Follow hemoglobin
Resume Eliquis/Plavix today
jail facility once medically stable
Follow-up orthopedics 1 month postop
Assessment
.
Distal Motor Intact: Yes
Dressing:
Clean, dry and intact.
Plan
.
[facility] / Date[facility]
DVT Prophylaxis: Other
Activity:
Out of bed.
PT/OT
Discharge Plan: SNF
Subjective
.
.:
Patient resting comfortably.
Vital Signs and Labs
.
Vital Signs and Labs:
Temp Pulse Resp BP Pulse Ox
97.8 F 63 16 143/53 96
02/13/25 03:00 02/13/25 03:00 02/13/25 03:00 02/13/25 03:00 02/13/25 03:00
PT Cancelled 02/12/25 06:00
INR Cancelled 02/12/25 06:00
[2025-02-13 07:34] LABS: Hematocrit 23.6 % (37.0-47.0); Hemoglobin 7.8 g/dL (12.0-16.0); Mean Corp Hgb Conc. 33.1 g/dL (33.0-37.0); Mean Corpuscular Volume 107.8 fL (81.0-99.0); Platelet Count 400 10^3/uL (130-400); Red Cell Dist. Width 24.3 % (11.5-14.5)
[2025-02-13] MEDS: DILAUDID 0.5 MG IV ×2 (07:36→13:39)
[2025-02-13 08:07] LABS: Blood Urea Nitrogen 22 mg/dl (7-17); Calcium 7.9 mg/dl (8.4-10.2); Carbon Dioxide 22 mmol/L (22-30); Chloride 105 mmol/L (98-107); Estimated Creatinine Clearance 49 ml/min; Glucose 99 mg/dl (70-99); Potassium 4.9 mmol/L (3.5-5.1); Sodium 134 mmol/L (135-145); eGFR > 60.00
[2025-02-13] MEDS: ZOLOFT 200 MG PO (09:10)
[2025-02-13] MEDS: COREG 25 MG PO ×2 (09:14→21:02)
[2025-02-13] MEDS: APRESOLINE 50 MG PO ×2 (09:14→21:02)
[2025-02-13] MEDS: NICODERM TRANSDERMAL 14 MG TRANSDERM (09:14)
[2025-02-13] MEDS: NORVASC 10 MG PO (09:15)
[2025-02-13] MEDS: SENOKOT 17.2 MG PO (09:15)
[2025-02-13] MEDS: COLACE 100 MG PO (09:15)
[2025-02-13] MEDS: PLAVIX 75 MG PO (09:18)
[2025-02-13] MEDS: ELIQUIS 5 MG PO ×2 (09:19→21:01)
--- NOTE | 2025-02-13 10:09 | W.PN.HOSP.TC ---
Today's Communication/Plan
-
Pain control.
Monitor hemoglobin.
Physical therapy
Assessment / Plan
Assessment / Plan
Impression:
Patient is a 69-year-old female with a medical history of MDS, paroxysmal A-fib (on Eliquis), CAD (NSTEMI, managed medically), aortoiliac and mesenteric artery occlusive disease (on Plavix and statin), bilateral renal artery stenosis (status post
stenting), hypertension, and 50+ pack year current every day smoker who presented with right hip pain after mechanical fall. Imaging showed impacted fracture of the subcapital portion of the proximal right femur. Her last doses of Eliquis and
Plavix were at 8 AM on 02/07. She has been admitted for further evaluation and management.
Status post right total hip replacement on 02/12
Assessment/plan:
Right femur fracture status post right total hip replacement on 02/12:
- Secondary to mechanical fall
- Impacted fracture of the subcapital portion of the proximal right femur
- initially held home Eliquis and Plavix, and started bridge with heparin drip .
- Eliquis and Plavix resumed after surgery.
- Pain control.
- PT/OT consult
Acute blood loss anemia
Acute on chronic anemia
Macrocytic anemia.
Continue to monitor hemoglobin and transfuse if needed.
Peripheral artery disease:
- History of aortoiliac and mesenteric artery occlusive disease
- Bilateral renal artery stenosis which have been stented bilaterally
- Continue statin
- resumed plavix.
- Blood pressure currently well-controlled on outpatient regimen of amlodipine 10 mg daily, valsartan 80 mg daily, carvedilol 25 mg twice daily, and hydralazine 50 mg twice daily
Hypertension:
- Continue home antihypertensive regimen as outlined above
A-fib:
- Paroxysmal
- Currently rate controlled on home carvedilol 25 mg twice daily
- Eliquis
CAD:
- Currently acceptable cardiovascular risk for planned procedure
- continue antiplatelet therapy .
- Continue statin therapy
Nicotine dependence:
- 50+ pack year current 1 pack/day smoker
- Nicotine patch provided
- Encourage cessation
CODE STATUS: Full code
DVT prophylaxis: Eliquis
Diet: Regular diet.
Total time spent on today's encounter was 65 minutes which included time spent in counseling the patient/family regarding diagnosis and treatment plan as listed above, goals of care, and symptom management. Case was discussed with nursing staff,
specialists, and care coordinators/case management. All labs and imaging personally reviewed by me. Remainder the time spent in detailed review of previous records, lab data, imaging, and other medical provider documentation.
Anticipated Discharge: > 48 hours
Subjective/Interval History
-
Date of Service: February 13, 2025
Patient seen and examined at bedside.
Status post or yesterday, still complaining of pain on right hip.
Increased oxycodone
Objective Data
-
Labs:
Laboratory Results
02/13/25
06:15
WBC 11.3 H
Hgb 7.8 L
Hct 23.6 L
Plt Count 400
Sodium 134 L
Potassium 4.9
Chloride 105
Carbon Dioxide 22
BUN 22 H
Creatinine 0.9
Glucose 99
Calcium 7.9 L
Vital Signs:
Vital Signs
Temp Pulse Resp BP Pulse Ox
98.6 F 57 18 183/60 96
02/13/25 07:15 02/13/25 07:15 02/13/25 07:15 02/13/25 07:15 02/13/25 07:15
I&O
02/12/25 02/13/25 02/14/25
06:59 06:59 06:59
Intake Total 1220 / 1220 240 / 240
Balance 1220 / 1220 240 / 240
Physical Exam
-
General: Well Developed, Well Nourished, No Apparent Distress and Comfortable
HEENT: Normocephalic, Atraumatic, Moist Mucous Membranes, No Ptosis, PERRLA and Nose Appears Normal
Respiratory: Clear to Auscultation and Non Labored Respirations
Cardiac: Regular Rhythm and S1/S2
Breast: Deferred by me
GI: Soft, Nontender, Nondistended and Normal Bowel Sounds
Genito-urinary: No Costovertebral Tender
Musculoskeletal: No Clubbing, No Cyanosis and Other (Right hip surgical site is clean)
Skin: Warm
Neuro: Awake, Alert, Oriented, AO x 3 and No Motor Deficits
Psych: Calm
Data Reviewed
-
Diagnostic Radiology: Image personally visualized and interpreted and Report Reviewed by me
CT Scan: Image personally visualized and interpreted and Report Reviewed by me
Ultrasound: Image personally visualized and interpreted and Report Reviewed by me
MRI: Image personally visualized and interpreted and Report Reviewed by me
Medical Tests (Nuc Med, Echo etc): Image personally visualized and interpreted and Report Reviewed by me
Labs: Labs Reviewed by me
Old Records: Reviewed
[2025-02-13] MEDS: ROXICODONE 10 MG PO ×3 (13:00→22:19)
--- NOTE | 2025-02-13 15:47 | CM ---
Reviewed the chart notes and spoke with the patient at the bedside. Patient will review PT recommendations of SNF. CM continues to be available to patient/family and is monitoring medical plan for needs at discharge.
Plan: Discharge plans will depend on the patient's progress.
[2025-02-13] MEDS: LIPITOR 20 MG PO (18:14)
[2025-02-13] MEDS: MELATONIN 5 MG PO (21:01)
[2025-02-13] MEDS: SENOKOT PO (21:01)
[2025-02-13] MEDS: COLACE PO (21:01)
[2025-02-14] VITALS (11 sets, daily range): BP systolic 109–159; BP diastolic 43–85; PULSE 60–64; O2SAT 95
[2025-02-14] MEDS: TYLENOL PO ×2 (00:34→04:55)
[2025-02-14] MEDS: ROXICODONE 10 MG PO ×4 (02:38→20:19)
[2025-02-14 06:55] LABS: Hematocrit 21.2 % (37.0-47.0); Hemoglobin 7.0 g/dL (12.0-16.0); Mean Corp Hgb Conc. 33.0 g/dL (33.0-37.0); Mean Corpuscular Volume 107.1 fL (81.0-99.0); Platelet Count 377 10^3/uL (130-400); Red Cell Dist. Width 25.1 % (11.5-14.5)
[2025-02-14 07:18] LABS: Blood Urea Nitrogen 21 mg/dl (7-17); Calcium 7.8 mg/dl (8.4-10.2); Carbon Dioxide 23 mmol/L (22-30); Chloride 107 mmol/L (98-107); Estimated Creatinine Clearance 49 ml/min; Glucose 110 mg/dl (70-99); Potassium 4.3 mmol/L (3.5-5.1); Sodium 135 mmol/L (135-145); eGFR > 60.00
--- NOTE | 2025-02-14 07:49 | W.PN.ORTHO ---
Today's Communication / Plan
-
PT/OT
Posterior Hip precautions
Weightbearing as tolerated with walker
Follow hemoglobin - 7.0 this morning.
Eliquis/Plavix per pre-operative dosing
PT has detention facility once medically stable
Follow-up orthopedics 1 month postop
Will sign off for now. Please re-engage with any further questions/concerns.
Assessment
.
Dressing:
Clean, dry and intact.
Assessment:
PT/OT
Posterior Hip precautions
Weightbearing as tolerated with walker
Follow hemoglobin - 7.0 this morning.
Eliquis/Plavix per pre-operative dosing
PT has detention facility once medically stable
Follow-up orthopedics 1 month postop
Will sign off for now. Please re-engage with any further questions/concerns.
Plan
.
Surgery / Date: [facility] 02/12
DVT Prophylaxis: Other (Eliquis/Plavix)
Activity:
Out of bed.
PT/OT
Discharge Plan: SNF
Subjective
.
.:
Patient sitting up in bed, complaining of throbbing in right hip. reports she had some increased pain after being assisted out of bed yesterday, but was able to do PT.
Vital Signs and Labs
.
Vital Signs and Labs:
Lab Results
02/14/25 05:59
02/14/25 05:59
Temp Pulse Resp BP Pulse Ox
98.7 F 63 16 117/44 93
02/14/25 03:00 02/14/25 03:00 02/14/25 03:00 02/14/25 03:00 02/14/25 03:00
PT Cancelled 02/12/25 06:00
INR Cancelled 02/12/25 06:00
Physical Exam
-
Right hip: Dressing intact with minimal drainage. Diffuse swelling. TTP diffusely about soft tissues. ROM with some discomfort. Leg lengths equal. Calf soft and non tender. N/v intact distally.
[2025-02-14] MEDS: COREG 25 MG PO ×2 (08:27→20:18)
[2025-02-14] MEDS: COLACE 100 MG PO ×2 (08:29→20:19)
[2025-02-14] MEDS: SENOKOT 17.2 MG PO ×2 (08:30→20:19)
[2025-02-14] MEDS: ZOLOFT 200 MG PO (08:30)
[2025-02-14] MEDS: APRESOLINE 50 MG PO ×2 (08:30→20:18)
[2025-02-14] MEDS: NORVASC 10 MG PO (08:30)
[2025-02-14] MEDS: PLAVIX 75 MG PO (08:30)
[2025-02-14] MEDS: TYLENOL 650 MG PO ×4 (08:31→20:21)
[2025-02-14] MEDS: ELIQUIS 5 MG PO ×2 (08:31→20:19)
[2025-02-14] MEDS: NICODERM TRANSDERMAL 14 MG TRANSDERM (08:32)
--- NOTE | 2025-02-14 10:33 | W.PN.HOSP.TC ---
Today's Communication/Plan
-
Blood transfusion.
Physical therapy.
Assessment / Plan
Assessment / Plan
Impression:
Patient is a 69-year-old female with a medical history of MDS, paroxysmal A-fib (on Eliquis), CAD (NSTEMI, managed medically), aortoiliac and mesenteric artery occlusive disease (on Plavix and statin), bilateral renal artery stenosis (status post
stenting), hypertension, and 50+ pack year current every day smoker who presented with right hip pain after mechanical fall. Imaging showed impacted fracture of the subcapital portion of the proximal right femur. Her last doses of Eliquis and
Plavix were at 8 AM on 02/07. She has been admitted for further evaluation and management.
Status post right total hip replacement on 02/12
Hemoglobin dropped to 7.0, required 1 unit of blood transfusion.
Assessment/plan:
Right femur fracture status post right total hip replacement on 02/12:
- Secondary to mechanical fall
- Impacted fracture of the subcapital portion of the proximal right femur
- initially held home Eliquis and Plavix, and started bridge with heparin drip .
- Eliquis and Plavix resumed after surgery.
- Pain control.
- PT/OT consult
Acute blood loss anemia s/p blood transfusion.
Acute on chronic anemia
Macrocytic anemia.
Hemoglobin dropped to 7.0, required 1 unit of blood transfusion.
Peripheral artery disease:
- History of aortoiliac and mesenteric artery occlusive disease
- Bilateral renal artery stenosis which have been stented bilaterally
- Continue statin
- resumed plavix.
- Blood pressure currently well-controlled on outpatient regimen of amlodipine 10 mg daily, valsartan 80 mg daily, carvedilol 25 mg twice daily, and hydralazine 50 mg twice daily
Hypertension:
- Continue home antihypertensive regimen as outlined above
A-fib:
- Paroxysmal
- Currently rate controlled on home carvedilol 25 mg twice daily
- Eliquis
CAD:
- Currently acceptable cardiovascular risk for planned procedure
- continue antiplatelet therapy .
- Continue statin therapy
Nicotine dependence:
- 50+ pack year current 1 pack/day smoker
- Nicotine patch provided
- Encourage cessation
CODE STATUS: Full code
DVT prophylaxis: Eliquis
Diet: Regular diet.
Total time spent on today's encounter was 65 minutes which included time spent in counseling the patient/family regarding diagnosis and treatment plan as listed above, goals of care, and symptom management. Case was discussed with nursing staff,
specialists, and care coordinators/case management. All labs and imaging personally reviewed by me. Remainder the time spent in detailed review of previous records, lab data, imaging, and other medical provider documentation.
Anticipated Discharge: 24 - 48 hours
Subjective/Interval History
-
Date of Service: February 14, 2025
Patient seen and examined at bedside.
Chest pain shortness of breath, improved pain on right hip.
Hemoglobin 7.0, proceed with 1 unit of blood transfusion
Objective Data
-
Labs:
Laboratory Results
02/14/25
05:59
WBC 11.9 H
Hgb 7.0 L
Hct 21.2 L
Plt Count 377
Sodium 135
Potassium 4.3
Chloride 107
Carbon Dioxide 23
BUN 21 H
Creatinine 0.9
Glucose 110 H
Calcium 7.8 L
Vital Signs:
Vital Signs
Temp Pulse Resp BP Pulse Ox
98.8 F 59 18 123/43 98
02/14/25 10:25 02/14/25 10:25 02/14/25 10:25 02/14/25 10:25 02/14/25 10:25
I&O
02/13/25 02/14/25 02/15/25
06:59 06:59 06:59
Intake Total 240 / 240 480 / 480 0 / 0
Balance 240 / 240 480 / 480 0 / 0
Physical Exam
-
General: Well Developed, Well Nourished, No Apparent Distress and Comfortable
HEENT: Normocephalic, Atraumatic, Moist Mucous Membranes, No Ptosis, PERRLA and Nose Appears Normal
Respiratory: Clear to Auscultation and Non Labored Respirations
Cardiac: Regular Rhythm and S1/S2
Breast: Deferred by me
GI: Soft, Nontender, Nondistended and Normal Bowel Sounds
Genito-urinary: No Costovertebral Tender
Musculoskeletal: No Clubbing, No Cyanosis and Other (Right hip surgical site is clean)
Skin: Warm
Neuro: Awake, Alert, Oriented, AO x 3 and No Motor Deficits
Psych: Calm
Data Reviewed
-
Diagnostic Radiology: Image personally visualized and interpreted and Report Reviewed by me
CT Scan: Image personally visualized and interpreted and Report Reviewed by me
Ultrasound: Image personally visualized and interpreted and Report Reviewed by me
MRI: Image personally visualized and interpreted and Report Reviewed by me
Medical Tests (Nuc Med, Echo etc): Image personally visualized and interpreted and Report Reviewed by me
Labs: Labs Reviewed by me
Old Records: Reviewed
--- NOTE | 2025-02-14 14:15 | CM ---
Reviewed the chart notes and spoke with the patient at the bedside. Patient awaiting PT/OT evaluation today. Patient no in agreement with PT/OT recommendation yesterday of SNF/rehab. Patient received 1 unit PRBC for hgb 7.0 today. CM continues to
be available to patient/family and is monitoring medical plan for needs at discharge.
Plan: Discharge plans will depend on the patient's progress.
[2025-02-14] MEDS: LIPITOR 20 MG PO (17:39)
[2025-02-14] MEDS: MELATONIN 5 MG PO (22:31)
[2025-02-15] MEDS: TYLENOL PO ×2 (00:14→04:08)
[2025-02-15 02:39] VITALS: BP 138/58
[2025-02-15 06:39] LABS: Hematocrit 23.7 % (37.0-47.0); Hemoglobin 7.9 g/dL (12.0-16.0); Mean Corp Hgb Conc. 33.3 g/dL (33.0-37.0); Mean Corpuscular Volume 101.7 fL (81.0-99.0); Platelet Count 385 10^3/uL (130-400)
[2025-02-15 06:57] LABS: Blood Urea Nitrogen 17 mg/dl (7-17); Calcium 7.8 mg/dl (8.4-10.2); Carbon Dioxide 22 mmol/L (22-30); Chloride 108 mmol/L (98-107); Estimated Creatinine Clearance 63 ml/min; Glucose 105 mg/dl (70-99); Potassium 4.3 mmol/L (3.5-5.1); Sodium 136 mmol/L (135-145); eGFR > 60.00
[2025-02-15 07:10] VITALS: BP 154/56
[2025-02-15] MEDS: TYLENOL 650 MG PO ×4 (08:13→21:14)
[2025-02-15] MEDS: SENOKOT 17.2 MG PO ×2 (08:13→21:14)
[2025-02-15] MEDS: APRESOLINE 50 MG PO ×2 (08:13→21:13)
[2025-02-15] MEDS: COLACE 100 MG PO ×2 (08:13→21:13)
[2025-02-15] MEDS: ELIQUIS 5 MG PO ×2 (08:14→21:13)
[2025-02-15] MEDS: ZOLOFT 200 MG PO (08:14)
[2025-02-15] MEDS: PLAVIX 75 MG PO (08:14)
[2025-02-15] MEDS: NICODERM TRANSDERMAL 14 MG TRANSDERM (08:14)
[2025-02-15] MEDS: COREG 25 MG PO ×2 (08:14→21:14)
[2025-02-15] MEDS: NORVASC 10 MG PO (08:14)
--- NOTE | 2025-02-15 11:22 | W.PN.HOSP.TC ---
Today's Communication/Plan
-
Hemoglobin improved,
physical therapy recommending rehab
medically cleared for discharge pending placement.
Assessment / Plan
Assessment / Plan
Impression:
Patient is a 69-year-old female with a medical history of MDS, paroxysmal A-fib (on Eliquis), CAD (NSTEMI, managed medically), aortoiliac and mesenteric artery occlusive disease (on Plavix and statin), bilateral renal artery stenosis (status post
stenting), hypertension, and 50+ pack year current every day smoker who presented with right hip pain after mechanical fall. Imaging showed impacted fracture of the subcapital portion of the proximal right femur. Her last doses of Eliquis and
Plavix were at 8 AM on 02/07. She has been admitted for further evaluation and management.
Status post right total hip replacement on 02/12
Hemoglobin dropped to 7.0, required 1 unit of blood transfusion.
Hemoglobin improved, physical therapy recommending rehab, still pending placement.
Assessment/plan:
Right femur fracture status post right total hip replacement on 02/12:
- Secondary to mechanical fall
- Impacted fracture of the subcapital portion of the proximal right femur
- initially held home Eliquis and Plavix, and started bridge with heparin drip .
- Eliquis and Plavix resumed after surgery.
- Pain control.
- PT/OT consulted
- pending placement.
Acute blood loss anemia s/p blood transfusion.
Acute on chronic anemia
Macrocytic anemia.
Hemoglobin dropped to 7.0, required 1 unit of blood transfusion.
Hemoglobin improved, after blood transfusion.
Peripheral artery disease:
- History of aortoiliac and mesenteric artery occlusive disease
- Bilateral renal artery stenosis which have been stented bilaterally
- Continue statin
- resumed plavix.
- Blood pressure currently well-controlled on outpatient regimen of amlodipine 10 mg daily, valsartan 80 mg daily, carvedilol 25 mg twice daily, and hydralazine 50 mg twice daily
Hypertension:
- Continue home antihypertensive regimen as outlined above
A-fib:
- Paroxysmal
- Currently rate controlled on home carvedilol 25 mg twice daily
- Eliquis
CAD:
- Currently acceptable cardiovascular risk for planned procedure
- continue antiplatelet therapy .
- Continue statin therapy
Nicotine dependence:
- 50+ pack year current 1 pack/day smoker
- Nicotine patch provided
- Encourage cessation
CODE STATUS: Full code
DVT prophylaxis: Eliquis
Diet: Regular diet.
Total time spent on today's encounter was 65 minutes which included time spent in counseling the patient/family regarding diagnosis and treatment plan as listed above, goals of care, and symptom management. Case was discussed with nursing staff,
specialists, and care coordinators/case management. All labs and imaging personally reviewed by me. Remainder the time spent in detailed review of previous records, lab data, imaging, and other medical provider documentation.
Anticipated Discharge: Today
Subjective/Interval History
-
Date of Service: February 15, 2025
Patient seen and examined at bedside.
No Chest pain shortness of breath, improved pain on right hip.
Hemoglobin 7.9 after 1 unit of blood transfusion
Objective Data
-
Labs:
Laboratory Results
02/15/25
05:24
WBC 8.8
Hgb 7.9 L
Hct 23.7 L
Plt Count 385
Sodium 136
Potassium 4.3
Chloride 108 H
Carbon Dioxide 22
BUN 17
Creatinine 0.7
Glucose 105 H
Calcium 7.8 L
Vital Signs:
Vital Signs
Temp Pulse Resp BP Pulse Ox
98.3 F 64 16 154/56 93
02/15/25 07:10 02/15/25 08:14 02/15/25 07:10 02/15/25 08:14 02/15/25 07:10
I&O
02/14/25 02/15/25 02/16/25
06:59 06:59 06:59
Intake Total 480 / 480 490 / 490
Balance 480 / 480 490 / 490
Physical Exam
-
General: Well Developed, Well Nourished, No Apparent Distress and Comfortable
HEENT: Normocephalic, Atraumatic, Moist Mucous Membranes, No Ptosis, PERRLA and Nose Appears Normal
Respiratory: Clear to Auscultation and Non Labored Respirations
Cardiac: Regular Rhythm and S1/S2
Breast: Deferred by me
GI: Soft, Nontender, Nondistended and Normal Bowel Sounds
Genito-urinary: No Costovertebral Tender
Musculoskeletal: No Clubbing, No Cyanosis and Other (Right hip surgical site is clean)
Skin: Warm
Neuro: Awake, Alert, Oriented, AO x 3 and No Motor Deficits
Psych: Calm
Data Reviewed
-
Diagnostic Radiology: Image personally visualized and interpreted and Report Reviewed by me
CT Scan: Image personally visualized and interpreted and Report Reviewed by me
Ultrasound: Image personally visualized and interpreted and Report Reviewed by me
MRI: Image personally visualized and interpreted and Report Reviewed by me
Medical Tests (Nuc Med, Echo etc): Image personally visualized and interpreted and Report Reviewed by me
Labs: Labs Reviewed by me
Old Records: Reviewed
[2025-02-15 12:01] VITALS: BP 157/88
[2025-02-15] MEDS: ROXICODONE 10 MG PO ×2 (12:16→21:12)
[2025-02-15 15:10] VITALS: BP 157/57
[2025-02-15] MEDS: LIPITOR 20 MG PO (17:17)
[2025-02-15] MEDS: MELATONIN 5 MG PO (21:13)
[2025-02-15 23:00] VITALS: BP 130/46
[2025-02-16] MEDS: TYLENOL PO ×2 (04:30)
[2025-02-16] MEDS: PLAVIX 75 MG PO (07:59)
[2025-02-16] MEDS: APRESOLINE 50 MG PO ×2 (08:00→20:21)
[2025-02-16] MEDS: ZOLOFT 200 MG PO (08:00)
[2025-02-16] MEDS: TYLENOL 650 MG PO ×4 (08:03→20:21)
[2025-02-16] MEDS: COREG 25 MG PO ×2 (08:04→20:21)
[2025-02-16 08:05] VITALS: BP 141/52
[2025-02-16] MEDS: NORVASC 10 MG PO (08:05)
[2025-02-16] MEDS: COLACE 100 MG PO ×2 (08:05→20:25)
[2025-02-16] MEDS: ELIQUIS 5 MG PO ×2 (08:05→20:21)
[2025-02-16] MEDS: SENOKOT 17.2 MG PO (08:05)
[2025-02-16 08:16] LABS: Blood Urea Nitrogen 17 mg/dl (7-17); Calcium 8.1 mg/dl (8.4-10.2); Carbon Dioxide 23 mmol/L (22-30); Chloride 109 mmol/L (98-107); Estimated Creatinine Clearance 73 ml/min; Glucose 109 mg/dl (70-99); Potassium 4.3 mmol/L (3.5-5.1); Sodium 136 mmol/L (135-145); eGFR > 60.00
[2025-02-16 08:51] LABS: Hematocrit 24.3 % (37.0-47.0); Hemoglobin 8.1 g/dL (12.0-16.0); Mean Corp Hgb Conc. 33.3 g/dL (33.0-37.0); Mean Corpuscular Volume 101.3 fL (81.0-99.0); Platelet Count 456 10^3/uL (130-400)
[2025-02-16] MEDS: NICODERM TRANSDERMAL TRANSDERM (09:59)
[2025-02-16 10:03] VITALS: BP 121/51; PULSE 66; O2SAT 95
[2025-02-16] MEDS: ROXICODONE 10 MG PO (11:06)
--- NOTE | 2025-02-16 11:35 | W.PN.HOSP.TC ---
Today's Communication/Plan
-
physical therapy recommending rehab
medically cleared for discharge pending placement.
Assessment / Plan
Assessment / Plan
Impression:
Patient is a 69-year-old female with a medical history of MDS, paroxysmal A-fib (on Eliquis), CAD (NSTEMI, managed medically), aortoiliac and mesenteric artery occlusive disease (on Plavix and statin), bilateral renal artery stenosis (status post
stenting), hypertension, and 50+ pack year current every day smoker who presented with right hip pain after mechanical fall. Imaging showed impacted fracture of the subcapital portion of the proximal right femur. Her last doses of Eliquis and
Plavix were at 8 AM on 02/07. She has been admitted for further evaluation and management.
Status post right total hip replacement on 02/12
Hemoglobin dropped to 7.0, required 1 unit of blood transfusion.
Hemoglobin improved, physical therapy recommending rehab, still pending placement.
Assessment/plan:
Right femur fracture status post right total hip replacement on 02/12:
- Secondary to mechanical fall
- Impacted fracture of the subcapital portion of the proximal right femur
- initially held home Eliquis and Plavix, and started bridge with heparin drip .
- Eliquis and Plavix resumed after surgery.
- Pain control.
- PT/OT consulted
- pending placement.
Acute blood loss anemia s/p blood transfusion.
Acute on chronic anemia
Macrocytic anemia.
Hemoglobin dropped to 7.0, required 1 unit of blood transfusion.
Hemoglobin improved, after blood transfusion.
Peripheral artery disease:
- History of aortoiliac and mesenteric artery occlusive disease
- Bilateral renal artery stenosis which have been stented bilaterally
- Continue statin
- resumed plavix.
- Blood pressure currently well-controlled on outpatient regimen of amlodipine 10 mg daily, valsartan 80 mg daily, carvedilol 25 mg twice daily, and hydralazine 50 mg twice daily
Hypertension:
- Continue home antihypertensive regimen as outlined above
A-fib:
- Paroxysmal
- Currently rate controlled on home carvedilol 25 mg twice daily
- Eliquis
CAD:
- Currently acceptable cardiovascular risk for planned procedure
- continue antiplatelet therapy .
- Continue statin therapy
Nicotine dependence:
- 50+ pack year current 1 pack/day smoker
- Nicotine patch provided
- Encourage cessation
CODE STATUS: Full code
DVT prophylaxis: Eliquis
Diet: Regular diet.
Total time spent on today's encounter was 65 minutes which included time spent in counseling the patient/family regarding diagnosis and treatment plan as listed above, goals of care, and symptom management. Case was discussed with nursing staff,
specialists, and care coordinators/case management. All labs and imaging personally reviewed by me. Remainder the time spent in detailed review of previous records, lab data, imaging, and other medical provider documentation.
Anticipated Discharge: Today
Subjective/Interval History
-
Date of Service: February 16, 2025
Patient seen and examined at bedside, patient was sitting in the chair, denies any chest pain or shortness of breath.
Objective Data
-
Labs:
Laboratory Results
02/16/25
07:03
WBC 8.4
Hgb 8.1 L
Hct 24.3 L
Plt Count 456 H
Sodium 136
Potassium 4.3
Chloride 109 H
Carbon Dioxide 23
BUN 17
Creatinine 0.6
Glucose 109 H
Calcium 8.1 L
Vital Signs:
Vital Signs
Temp Pulse Resp BP Pulse Ox
98.7 F 60 16 141/52 94
02/16/25 08:05 02/16/25 08:05 02/16/25 08:05 02/16/25 08:05 02/16/25 08:05
I&O
02/15/25 02/16/25 02/17/25
06:59 06:59 06:59
Intake Total 490 / 490 720 / 720 480 / 480
Balance 490 / 490 720 / 720 480 / 480
Physical Exam
-
General: Well Developed, Well Nourished, No Apparent Distress and Comfortable
HEENT: Normocephalic, Atraumatic, Moist Mucous Membranes, No Ptosis, PERRLA and Nose Appears Normal
Respiratory: Clear to Auscultation and Non Labored Respirations
Cardiac: Regular Rhythm and S1/S2
Breast: Deferred by me
GI: Soft, Nontender, Nondistended and Normal Bowel Sounds
Genito-urinary: No Costovertebral Tender
Musculoskeletal: No Clubbing, No Cyanosis and Other (Right hip surgical site is clean)
Skin: Warm
Neuro: Awake, Alert, Oriented, AO x 3 and No Motor Deficits
Psych: Calm
Data Reviewed
-
Diagnostic Radiology: Image personally visualized and interpreted and Report Reviewed by me
CT Scan: Image personally visualized and interpreted and Report Reviewed by me
Ultrasound: Image personally visualized and interpreted and Report Reviewed by me
MRI: Image personally visualized and interpreted and Report Reviewed by me
Medical Tests (Nuc Med, Echo etc): Image personally visualized and interpreted and Report Reviewed by me
Labs: Labs Reviewed by me
Old Records: Reviewed
[2025-02-16 15:35] VITALS: BP 134/50
[2025-02-16] MEDS: LIPITOR 20 MG PO (17:28)
[2025-02-16] MEDS: MELATONIN 5 MG PO (20:21)
[2025-02-16] MEDS: ROXICODONE 5 MG PO (20:25)
[2025-02-16] MEDS: SENOKOT PO (21:44)
[2025-02-16 23:13] VITALS: BP 116/48
[2025-02-17] MEDS: TYLENOL PO ×2 (01:18→05:23)
[2025-02-17] MEDS: ROXICODONE 5 MG PO ×4 (01:26→20:56)
[2025-02-17 07:30] VITALS: BP 148/53
[2025-02-17] MEDS: ZOLOFT 200 MG PO (08:38)
[2025-02-17] MEDS: TYLENOL 650 MG PO ×5 (08:38→23:43)
[2025-02-17] MEDS: PLAVIX 75 MG PO (08:39)
[2025-02-17] MEDS: ELIQUIS 5 MG PO ×2 (08:39→20:51)
[2025-02-17] MEDS: APRESOLINE 50 MG PO ×2 (08:44→20:54)
[2025-02-17] MEDS: NORVASC 10 MG PO (08:44)
[2025-02-17] MEDS: COREG PO (08:44)
[2025-02-17] MEDS: SENOKOT PO ×2 (08:47→20:56)
[2025-02-17] MEDS: COLACE 100 MG PO ×2 (08:47→20:51)
[2025-02-17] MEDS: NICODERM TRANSDERMAL TRANSDERM (08:47)
[2025-02-17 10:12] VITALS: BP 117/51; PULSE 67
--- NOTE | 2025-02-17 10:18 | CM ---
Addendum entered by Suzy Kimble RN 02/17/25 14:06:
IMM reviewed.
Original Note:
Reviewed the chart notes and spoke with the patient at the bedside. Discussed discharge plans of SNF. Permission received to sent referrals to area SNFs via [facility]. CM continues to be available to patient/family and is monitoring medical plan
for needs at discharge.
Plan: Discharge to SNF/rehab once bed secured. No precert required.
--- NOTE | 2025-02-17 13:38 | W.PN.HOSP.TC ---
Today's Communication/Plan
-
Assessment / Plan
Assessment / Plan
General: No Apparent Distress, Comfortable and Conversant
HEENT: NormoCephalic, Moist mucous membranes, Atraumatic
Respiratory: Clear and Non Labored Respirations
Cardiac: S1/S2 and Regular Rhythm; No Rub or Gallop
GI: Soft, Non Tender, Non Distended and Normal Bowel Sounds
Musculoskeletal: Right lateral hip wound dressing strikethrough
Skin: Warm and dry
: NO Lima
Neuro: Awake, Alert, Nonfocal/grossly intact
Psych: Calm and Intact Judgment/Insight
Impression:
Patient is a 69-year-old female with a medical history of MDS, paroxysmal A-fib (on Eliquis), CAD (NSTEMI, managed medically), aortoiliac and mesenteric artery occlusive disease (on Plavix and statin), bilateral renal artery stenosis (status post
stenting), hypertension, and 50+ pack year current every day smoker who presented with right hip pain after mechanical fall. Imaging showed impacted fracture of the subcapital portion of the proximal right femur. Her last doses of Eliquis and
Plavix were at 8 AM on 02/07. She has been admitted for further evaluation and management.
Status post right total hip replacement on 02/12
Hemoglobin dropped to 7.0, required 1 unit of blood transfusion.
Hemoglobin improved, physical therapy recommending rehab, still pending placement.
Assessment/plan:
Right femur fracture status post right total hip replacement on 02/12:
- Secondary to mechanical fall
- Impacted fracture of the subcapital portion of the proximal right femur
- initially held home Eliquis and Plavix, and started bridge with heparin drip .
- Eliquis and Plavix resumed after surgery.
- Pain control.
- Medically stable for discharge to SNF once arranged
Acute blood loss anemia s/p blood transfusion.
Acute on chronic anemia
Macrocytic anemia.
Hemoglobin dropped to 7.0, required 1 unit of blood transfusion.
Hemoglobin improved and stable after blood transfusion.
Peripheral artery disease:
- History of aortoiliac and mesenteric artery occlusive disease
- Bilateral renal artery stenosis which have been stented bilaterally
- Continue statin
- resumed plavix.
- Blood pressure currently well-controlled on outpatient regimen of amlodipine 10 mg daily, valsartan 80 mg daily, carvedilol 25 mg twice daily, and hydralazine 50 mg twice daily
Hypertension:
- Continue home antihypertensive regimen as outlined above
A-fib:
- Paroxysmal
- Currently rate controlled on home carvedilol 25 mg twice daily
- Eliquis
CAD:
- continue antiplatelet therapy .
- Continue statin therapy
Nicotine dependence:
- 50+ pack year current 1 pack/day smoker
- Nicotine patch provided
- Encourage cessation
CODE STATUS: Full code
DVT prophylaxis: Eliquis
Diet: Regular diet.
Total time spent on today's encounter was 35 minutes
Anticipated Discharge: 24 - 48 hours
Subjective/Interval History
-
Date of Service: February 17, 2025
Patient was seen and examined at bedside this morning. Minimal residual right hip pain following surgery. Awaiting SNF placement.
Objective Data
-
Vital Signs:
Vital Signs
Temp Pulse Resp BP Pulse Ox
98.5 F 54 14 148/53 94
02/17/25 07:30 02/17/25 08:44 02/17/25 07:30 02/17/25 08:44 02/17/25 07:30
I&O
02/16/25 02/17/25 02/18/25
06:59 06:59 06:59
Intake Total 720 / 720 480 / 480 180 / 180
Balance 720 / 720 480 / 480 180 / 180
Review of Systems
-
History Source: Patient
All other systems: Reviewed and negative
Musculoskeletal: Reports Joint Pain (Mild right hip discomfort)
Physical Exam
-
General: No Apparent Distress
[2025-02-17 15:05] VITALS: BP 135/48
[2025-02-17 15:22] VITALS: BP 137/54; PULSE 63; O2SAT 95
[2025-02-17] MEDS: LIPITOR 20 MG PO (18:17)
[2025-02-17] MEDS: MELATONIN 5 MG PO (20:55)
[2025-02-17] MEDS: COREG 25 MG PO (20:57)
[2025-02-17 23:14] VITALS: BP 137/51
[2025-02-18] MEDS: TYLENOL PO (04:25)
[2025-02-18 07:25] VITALS: BP 145/49
[2025-02-18] MEDS: TYLENOL 650 MG PO ×4 (08:37→20:34)
[2025-02-18] MEDS: ELIQUIS 5 MG PO ×2 (08:37→20:35)
[2025-02-18] MEDS: ZOLOFT 200 MG PO (08:37)
[2025-02-18] MEDS: NICODERM TRANSDERMAL TRANSDERM (08:37)
[2025-02-18] MEDS: PLAVIX 75 MG PO (08:37)
[2025-02-18] MEDS: NORVASC 10 MG PO (08:38)
[2025-02-18] MEDS: APRESOLINE 50 MG PO ×2 (08:38→20:35)
[2025-02-18] MEDS: COLACE PO ×2 (08:38→20:27)
[2025-02-18] MEDS: COREG 25 MG PO ×2 (08:38→20:35)
[2025-02-18] MEDS: SENOKOT PO ×2 (08:39→20:27)
--- NOTE | 2025-02-18 11:38 | CM ---
Addendum entered by Suzy Kimble RN 02/18/25 15:11:
Initial referrals declined due to not servicing the patient's area. Additional referrals sent for VN services.
Original Note:
Reviewed the chart notes and spoke with the patient at the bedside. Patient wants to go home with VN/PT/OT. Referral placed in [facility]. CM continues to be available to patient/family and is monitoring medical plan for needs at discharge.
Plan: Discharge to home with VN services.
[2025-02-18 15:30] VITALS: BP 150/62
[2025-02-18 16:09] VITALS: BP 150/62; PULSE 59
--- NOTE | 2025-02-18 16:10 | W.PN.HOSP.TC ---
Today's Communication/Plan
-
Assessment / Plan
Assessment / Plan
General: No Apparent Distress, Comfortable and Conversant
HEENT: NormoCephalic, Moist mucous membranes, Atraumatic
Respiratory: Clear and Non Labored Respirations
Cardiac: S1/S2 and Regular Rhythm; No Rub or Gallop
GI: Soft, Non Tender, Non Distended and Normal Bowel Sounds
Musculoskeletal: Right lateral hip wound dressing strikethrough
Skin: Warm and dry
: NO Lima
Neuro: Awake, Alert, Nonfocal/grossly intact
Psych: Calm and Intact Judgment/Insight
Impression:
Patient is a 69-year-old female with a medical history of MDS, paroxysmal A-fib (on Eliquis), CAD (NSTEMI, managed medically), aortoiliac and mesenteric artery occlusive disease (on Plavix and statin), bilateral renal artery stenosis (status post
stenting), hypertension, and 50+ pack year current every day smoker who presented with right hip pain after mechanical fall. Imaging showed impacted fracture of the subcapital portion of the proximal right femur. Her last doses of Eliquis and
Plavix were at 8 AM on 02/07. She has been admitted for further evaluation and management.
Status post right total hip replacement on 02/12
Hemoglobin dropped to 7.0, required 1 unit of blood transfusion.
Hemoglobin improved, physical therapy recommending rehab, still pending placement.
Assessment/plan:
Right femur fracture status post right total hip replacement on 02/12:
- Secondary to mechanical fall
- Impacted fracture of the subcapital portion of the proximal right femur
- initially held home Eliquis and Plavix, and started bridge with heparin drip
- Eliquis and Plavix resumed after surgery.
- Pain control.
- Medically stable for discharge to to home with home health once arranged
Acute blood loss anemia s/p blood transfusion.
Acute on chronic anemia
Macrocytic anemia.
Hemoglobin dropped to 7.0, required 1 unit of blood transfusion.
Hemoglobin improved and stable after blood transfusion.
Peripheral artery disease:
- History of aortoiliac and mesenteric artery occlusive disease
- Bilateral renal artery stenosis which have been stented bilaterally
- Continue statin
- resumed plavix.
Hypertension:
- Blood pressure currently well-controlled on home amlodipine 10 mg daily, carvedilol 25 mg twice daily, and hydralazine 50 mg twice daily
- Held home valsartan 80 mg daily which can now be restarted
A-fib:
- Paroxysmal
- Currently rate controlled on home carvedilol 25 mg twice daily
- Eliquis
CAD:
- continue antiplatelet therapy .
- Continue statin therapy
Nicotine dependence:
- 50+ pack year current 1 pack/day smoker
- Nicotine patch provided
- Encourage cessation
CODE STATUS: Full code
DVT prophylaxis: Eliquis
Diet: Regular diet.
Total time spent on today's encounter was 35 minutes
Anticipated Discharge: 24 - 48 hours
Subjective/Interval History
-
Date of Service: February 18, 2025
Patient was seen and examined at bedside this morning. Ambulating well, now preferring discharge to home with home care
Objective Data
-
Vital Signs:
Vital Signs
Temp Pulse Resp BP Pulse Ox
98.9 F 59 16 150/62 96
02/18/25 15:30 02/18/25 15:30 02/18/25 15:30 02/18/25 15:30 02/18/25 15:30
I&O
02/17/25 02/18/25 02/19/25
06:59 06:59 06:59
Intake Total 480 / 480 892 / 892 480 / 480
Balance 480 / 480 892 / 892 480 / 480
Review of Systems
-
History Source: Patient
All other systems: Reviewed and negative
Physical Exam
-
General: No Apparent Distress
[2025-02-18] MEDS: LIPITOR 20 MG PO (17:04)
[2025-02-18] MEDS: ROXICODONE 5 MG PO (20:34)
[2025-02-18] MEDS: MELATONIN 5 MG PO (20:35)
[2025-02-18 22:59] VITALS: BP 138/51
[2025-02-19] MEDS: TYLENOL PO ×2 (01:03→05:06)
[2025-02-19 07:35] VITALS: BP 149/54
[2025-02-19] MEDS: APRESOLINE 50 MG PO (08:59)
[2025-02-19] MEDS: COLACE PO (08:59)
[2025-02-19] MEDS: SENOKOT PO (08:59)
[2025-02-19] MEDS: ELIQUIS 5 MG PO (09:00)
[2025-02-19] MEDS: ZOLOFT 200 MG PO (09:00)
[2025-02-19] MEDS: COREG 25 MG PO (09:00)
[2025-02-19] MEDS: TYLENOL 650 MG PO ×2 (09:00→12:59)
[2025-02-19] MEDS: PLAVIX 75 MG PO (09:00)
[2025-02-19] MEDS: NORVASC 10 MG PO (09:00)
[2025-02-19] MEDS: DIOVAN 80 MG PO (09:00)
[2025-02-19] MEDS: NICODERM TRANSDERMAL TRANSDERM (09:01)
--- NOTE | 2025-02-19 10:24 | CM ---
Addendum entered by Suzy Kimble RN 02/19/25 11:31:
IMM reviewed.
Original Note:
Reviewed the chart notes and spoke with the patient at the bedside. [facility] will be able to follow patient at home. CM continues to be available to patient/family and is monitoring medical plan for needs at discharge.
Plan: Discharge to home with [facility].
Fax report to: [phone]
--- NOTE | 2025-02-19 12:13 | W.DCSUMMARY ---
Discharge Summary
Discharge Data
Date of Admission: 02/07/25
Date of Discharge: 02/19/25
Total time spent discharging patient (in min): 40
-
Pending Results: No
Hospital Course
Ms. Banks is a 69-year-old female with a medical history of myelodysplastic syndrome, A-fib (on Eliquis), CAD (NSTEMI, manage medically), aortoiliac and mesenteric artery occlusive disease (on Plavix and statin), bilateral renal artery
stenosis (status post stenting), hypertension, and 50+ pack year current everyday smoker who presented with right hip pain after mechanical fall. Imaging showed an impacted fracture of the subcapital portion of the proximal right femur. Her
Eliquis and Plavix were held preoperatively and she underwent ORIF on 02/12 for her right hip fracture. Her Eliquis and Plavix were restarted postoperatively. She did require transfusion 1 unit PRBCs for a postoperative drop in her hemoglobin to
7.0. Her hemoglobin subsequently improved and remained stable. She was able to tolerate ambulation with assistance and later was able to ambulate independently with an assistive device. PT/OT recommended SNF for ongoing therapy, however patient
preferred home with home health. Home health service was arranged. She was medically stable at time of hospital discharge. She will need to follow-up with orthopedics 1 week after hospital discharge. She can remove her surgical bandage on
02/21/2025 and leave open to air until orthopedic follow-up. She can cover surgical incision site with bandage as needed if draining.
General: No Apparent Distress, Comfortable and Conversant
HEENT: NormoCephalic, Moist mucous membranes, Atraumatic
Respiratory: Clear and Non Labored Respirations
Cardiac: S1/S2 and Regular Rhythm; No Rub or Gallop
GI: Soft, Non Tender, Non Distended and Normal Bowel Sounds
Musculoskeletal: Right lateral hip wound dressing with mild strikethrough
Skin: Warm and dry
: NO Lima
Neuro: Awake, Alert, Nonfocal/grossly intact
Psych: Calm and Intact Judgment/Insight
Discharge Plan
-
Patient Disposition: Home with Home Care
Discharge Diagnosis/Procedures: Right femur fracture
Activity Restrictions/Additional Instructions:
Ms. Banks is a 69-year-old female with a medical history of myelodysplastic syndrome, A-fib (on Eliquis), CAD (NSTEMI, manage medically), aortoiliac and mesenteric artery occlusive disease (on Plavix and statin), bilateral renal artery
stenosis (status post stenting), hypertension, and 50+ pack year current everyday smoker who presented with right hip pain after mechanical fall. Imaging showed an impacted fracture of the subcapital portion of the proximal right femur. Her
Eliquis and Plavix were held preoperatively and she underwent ORIF on 02/12 for her right hip fracture. Her Eliquis and Plavix were restarted postoperatively. She did require transfusion 1 unit PRBCs for a postoperative drop in her hemoglobin to
7.0. Her hemoglobin subsequently improved and remained stable. She was able to tolerate ambulation with assistance and later was able to ambulate independently with an assistive device. PT/OT recommended SNF for ongoing therapy, however patient
preferred home with home health. Home health service was arranged. She was medically stable at time of hospital discharge. She will need to follow-up with orthopedics 1 week after hospital discharge. She can remove her surgical bandage on
02/21/2025 and leave open to air until orthopedic follow-up. She can cover surgical incision site with bandage as needed if draining.
Referrals:
Jacinta Brown MD [Family Provider, Family Practice]
Taye Castillo MD [Active, Orthopedics]
Prescriptions:
New
sennosides [Shasta-kamilla] 8.6 mg Tablet
17.2 mg PO BID 5 Days Qty: 20 0RF
nicotine 14 mg/24 hr Patch 24 Hour
14 mg transdermal DAILY Qty: 28 0RF
oxycodone 5 mg Tablet
5 mg PO Q4HPRN PRN (Reason: mod-sev pain) Qty: 12 0RF
Continued
sertraline 100 mg Tablet
200 mg PO DAILY
carvedilol 25 mg Tablet
25 mg PO BID Qty: 60 0RF
atorvastatin 20 mg Tablet
20 mg PO QPM Qty: 30 0RF
clopidogrel 75 mg Tablet
75 mg PO DAILY Qty: 30 0RF
amlodipine 10 mg Tablet
10 mg PO DAILY Qty: 30 0RF
Eliquis 5 mg Tablet
5 mg PO BID Qty: 60 0RF
hydralazine 25 mg tablet
50 mg PO BID
valsartan 80 mg Tablet
80 mg PO DAILY
Discharge Orders:
Discharge Patient (As Directed); Ordered 02/19/25
Ordered By: Azar Purcell
Discharge Date and Time
Print Language: LATVIAN
[2025-02-19 13:26] VITALS: BP 144/47
== END 2025-02-19 16:25 | disposition home health service (06) | DRG 522 ==
LOC: 2 SOUTH 12:57
PROVIDERS: Emergency Medicine; General Practice; Orthopaedic Surgery; ADMITTING PHYSICIAN Internal Medicine; ATTENDING PHYSICIAN Internal Medicine; CONSULT PHYSICIAN Orthopaedic Surgery Hand Surgery; EMERGENCY PHYSICIAN Emergency Medicine; FAMILY PHYSICIAN Family Medicine
PROC: 0SR904A Replacement of Right Hip Joint with Ceramic on Polyethylene Synthetic Substitute, Uncemented, Open Approach (ICD-10-PCS; 2025-02-12)
PROC: 30233N1 Transfusion of Nonautologous Red Blood Cells into Peripheral Vein, Percutaneous Approach (ICD-10-PCS; 2025-02-14)
DX: S72.011A Unspecified intracapsular fracture of right femur, initial encounter for closed fracture (principal); D62 Acute posthemorrhagic anemia; M16.11 Unilateral primary osteoarthritis, right hip; I10 Essential (primary) hypertension; E78.5 Hyperlipidemia, unspecified; F32.A Depression, unspecified; F17.210 Nicotine dependence, cigarettes, uncomplicated; W01.0XXA Fall on same level from slipping, tripping and stumbling without subsequent striking against object, initial encounter; D46.9 Myelodysplastic syndrome, unspecified; J44.9 Chronic obstructive pulmonary disease, unspecified; I70.1 Atherosclerosis of renal artery; I25.10 Atherosclerotic heart disease of native coronary artery without angina pectoris; I48.0 Paroxysmal atrial fibrillation; I73.9 Peripheral vascular disease, unspecified; F41.9 Anxiety disorder, unspecified; I25.2 Old myocardial infarction; Z79.01 Long term (current) use of anticoagulants; Z79.02 Long term (current) use of antithrombotics/antiplatelets; Z79.899 Other long term (current) drug therapy; Z86.73 Personal history of transient ischemic attack (TIA), and cerebral infarction without residual deficits
CPT/HCPCS: 70450; 72170; 73502; 73552; 80048; 80053; 81003; 81015; 85025; 85027; 85730; 86850; 86900; 86901; 86920; 96374; 96375; 97116; 97163; 97166; 97530; 97535; 99285; C1713; C1776; P9016

== ENCOUNTER 2025-03-20 08:58 | Outpatient (RCR) | payer MEDICARE, OTHER, SELFPAY ==
[2025-03-20 09:51] VITALS: BP 111/46
[2025-03-20 10:13] VITALS: BP 107/29
[2025-03-20 11:38] VITALS: BP 122/34
[2025-03-20 11:39] VITALS: BP 122/34
[2025-03-20 12:00] VITALS: BP 120/34
[2025-03-20 14:31] VITALS: BP 140/76
== END 2025-03-23 23:59 | disposition home or self-care (01) ==
LOC: OID 08:58
PROVIDERS: ATTENDING PHYSICIAN Internal Medicine Hematology & Oncology; FAMILY PHYSICIAN Family Medicine
DX: D27.0 Benign neoplasm of right ovary (principal); D46.1 Refractory anemia with ring sideroblasts; D51.9 Vitamin B12 deficiency anemia, unspecified; Z79.01 Long term (current) use of anticoagulants; Z72.0 Tobacco use
CPT/HCPCS: 36415; 36430; 86850; 86900; 86901; 86920; P9016

== ENCOUNTER 2025-05-30 08:15 | Outpatient (RCR) | payer MEDICARE, OTHER, SELFPAY ==
[2025-05-30 08:48] VITALS: BP 111/54
[2025-05-30 09:27] VITALS: BP 111/54
[2025-05-30 09:45] VITALS: BP 132/57
[2025-05-30 11:51] VITALS: BP 136/57
== END 2025-06-22 23:59 | disposition home or self-care (01) ==
LOC: OID 08:15
PROVIDERS: ATTENDING PHYSICIAN Internal Medicine Hematology & Oncology; FAMILY PHYSICIAN Family Medicine
DX: D46.1 Refractory anemia with ring sideroblasts (principal); D27.0 Benign neoplasm of right ovary; D51.9 Vitamin B12 deficiency anemia, unspecified; Z79.01 Long term (current) use of anticoagulants; Z72.0 Tobacco use
CPT/HCPCS: 36415; 36430; 86850; 86900; 86901; 86920; P9016